=== PATIENT | female | born 1935 | race Hispanic/Latino ===

== ENCOUNTER 2016-10-07 12:44 | Inpatient (IN) | payer MEDICARE ==
[2016-10-07 12:44] VITALS: PULSE 140
[2016-10-07 13:02] VITALS: BMI 18.8
[2016-10-07] MEDS ORDERED: Sodium Chloride 0.9% 1,000 ML IV ONE (13:22)
[2016-10-07] MEDS ORDERED: Iohexol 240 (50 ml) PO STA (13:22)
[2016-10-07] MEDS ORDERED: Iohexol 240 (50 ml) ONE (13:37)
[2016-10-07] MEDS ORDERED: Sodium Chloride 0.9% 1,000 ML ONE (13:37)
[2016-10-07 14:02] LABS: BASO # 0.1 K/uL (0.0-0.2); BASO % 1.1 % (0.0-2.0); EOS # 0.1 K/uL (0.0-0.7); EOS % 1.1 % (0.0-4.0); LYMPH # 1.4 K/uL (1.0-4.3); LYMPH % 18.6 % (20.0-40.0); MEAN CELL VOLUME 93.1 fL (81.0-99.0); MEAN CORPUSCULAR HEMOGLOBIN 30.4 pg (27.0-31.0); MEAN CORPUSCULAR HGB CONC 32.6 g/dL (33.0-37.0); MEAN PLATELET VOLUME 10.3 fL (7.2-11.7); MONO # 0.7 K/uL (0.0-0.8); MONO % 9.2 % (0.0-10.0); NEUT # 5.4 K/uL (1.8-7.0); RBC 3.94 Mil/uL (3.80-5.20); RED CELL DISTRIBUTION WIDTH 14.2 % (11.5-14.5); WHITE BLOOD COUNT 7.7 K/uL (4.8-10.8)
--- NOTE | 2016-10-07 14:09 | RAD ---
PROCEDURE: CHEST RADIOGRAPH, 1 VIEW HISTORY: SOB COMPARISON: 05/01/2016 FINDINGS: LUNGS: The lungs are hyperinflated and there is peribronchial thickening with chronic changes in both lungs. There are fibrotic changes in both upper and lower lobes. No focal consolidation. PLEURA: No pneumothorax or pleural fluid seen. CARDIOVASCULAR: Normal. OSSEOUS STRUCTURES: No significant abnormalities. VISUALIZED UPPER ABDOMEN: Normal. OTHER FINDINGS: None. IMPRESSION: No active pulmonary disease. COPD.
[2016-10-07 14:11] LABS: ALBUMIN 3.8 g/dL (3.5-5.0)
[2016-10-07 14:14] LABS: ALB/GLOB RATIO 1.2 (1.0-2.1); CALCIUM 12.5 mg/dl (8.6-10.4)
[2016-10-07 14:15] LABS: MAGNESIUM 2.1 mg/dL (1.6-2.3)
--- NOTE | 2016-10-07 14:45 | C.PDOC ---
History Of Present Illness Patient is a 81 y/o female that presents to the ED for evaluation of generalized weakness, and not feeling well. Patient complains of numbness to bilateral legs below the knee, and difficulty ambulating for the past week. Patient also complains of abdominal pain, distention, nausea, and poor appetite. Patient was sent to the ED by Dr. Tobi Berger. Additionally patient states that she fell several weeks ago, and is complaining of back pain, and anterior chest wall pain. Otherwise, denies any shortness of breath, cough, fever, chills, diarrhea, incontinence, or any other associated symptoms at this time. HPI limited, due to poor history from patient. Time Seen by Provider: 10/07/16 13:15 Chief Complaint (Nursing): Weakness/Neurological Deficit History Per: Patient History/Exam Limitations: no limitations Onset/Duration Of Symptoms: Days Current Symptoms Are (Timing): Still Present Recent travel outside of the [place]: No Past Medical History Reviewed: Historical Data, Nursing Documentation, Vital Signs Vital Signs: Last Vital Signs Temp 98.1 F 10/07/16 12:55 Pulse 55 L 10/07/16 15:26 Resp 14 10/07/16 15:26 BP 169/70 H 10/07/16 15:26 Pulse Ox 97 10/07/16 15:26 - Medical History PMH: Anemia, Anxiety, Arthritis, Asthma, Back Problems, COPD, Gall Bladder Disease (cholelithiasis), HTN, Hypercholesterolemia, Hyperlipidemia, Hypothyroidism (Melvi's Disease), Kidney Stones (nonobstructing calculi on CT. Asymptomatic), Peripheral Edema Denies: Atrial Fibrillation, CHF, Chronic Kidney Disease (acute kidney injury 2ndry to dehydration and intractable diarrhea may cause) Comment Only: Alzheimer's Disease (suspected) Surgical History: Appendectomy, Coronary Stent - [facility] Procedures INSERTION OF INTRALUM DEV INTO INF VENA CAVA, PERC APPROACH (05/16/15) INSPECTION OF LARYNX, ENDO (05/05/15) INSPECTION OF LOWER INTESTINAL TRACT, ENDO (05/05/15) INSPECTION OF UPPER INTESTINAL TRACT, ENDO (05/05/15) TRANSFUSE NONAUT RED BLOOD CELLS IN PERIPH VEIN, PERC (05/16/15) Family History: States: Unknown Family Hx - Social History Hx Tobacco Use: No Hx Alcohol Use: No Hx Substance Use: No - Immunization History Hx Tetanus Toxoid Vaccination: No Hx Influenza Vaccination: No Hx Pneumococcal Vaccination: Yes Review Of Systems Except As Marked, All Systems Reviewed And Found Negative. Constitutional: Positive for: Weakness, Other (poor appetite). Negative for: Fever, Chills Cardiovascular: Positive for: Chest Pain (chest wall pain). Negative for: Palpitations, Light Headedness Respiratory: Negative for: Cough, Shortness of Breath Gastrointestinal: Positive for: Nausea, Abdominal Pain. Negative for: Diarrhea , Constipation Genitourinary: Negative for: Dysuria, Frequency, Hematuria Musculoskeletal: Positive for: Back Pain. Negative for: Leg Pain Neurological: Positive for: Numbness (BL legs). Negative for: Weakness, Headache, Dizziness Physical Exam - Physical Exam Appears: Non-toxic, No Acute Distress Skin: Normal Color, Warm, Dry Head: Atraumatic, Normacephalic Eye(s): bilateral: Normal Inspection, EOMI Oral Mucosa: Dry Neck: Normal ROM, Supple Chest: Symmetrical, No Tenderness Cardiovascular: Rhythm Regular, No Murmur Respiratory: Normal Breath Sounds, No Accessory Muscle Use, No Rales, No Rhonchi , No Wheezing Gastrointestinal/Abdominal: Soft, Tenderness (left side), Distention, Guarding, No Rebound Back: No CVA Tenderness, No Vertebral Tenderness, No Paraspinal Tenderness Extremity: Normal ROM, No Tenderness, Capillary Refill (<2 sec.), No Deformity Neurological/Psych: Oriented x3, Normal Speech, Normal Cognition, Normal Motor, Normal Sensation (no sensory loss), Other (neuro intact, no focal weakness) ED Course And Treatment - Laboratory Results Result Diagrams: 10/07/16 14:00 10/07/16 14:00 Lab Interpretation: Abnormal (BUN 25, Calcium 12.5, Bili 1.5) ECG: Interpreted By Me ECG Rhythm: Sinus Bradycardia (with left axis) O2 Sat by Pulse Oximetry: 91 (Patient with known history of COPD, heavy smoker) Pulse Ox Interpretation: Abnormal - Radiology CXR: Viewed By Me, Read By Radiologist CXR Interpretation: Yes: COPD, Other (diffuse fibrotic changes) - CT Scan/US CT abdomen and pelvis Other Rad Studies (CT/US): Read By Radiologist, Radiology Report Reviewed CT/US Interpretation: Accession No. : [id number]. Patient Name / ID : DANIEL ASHFORD / [id number]. Exam Date : 10/07/2016 16:00:18 ( Approved ). Study Comment : Sex / Age : F / 81Y. Creator : RAMON MCNALLY MD. Dictator : RAMON MCNALLY MD. Clinical Document Improvement Educator : [employer] Consultant : RAMON MCNALLY MD. Approver2 : Report Date : 10/07/2016 16:29:44. My Comment : . PROCEDURE: CT Abdomen and Pelvis with contrast. HISTORY: Abdominal pain. COMPARISON: 06/03/2015. TECHNIQUE: CT scan of the abdomen and pelvis was performed after administration of intravenous contrast. Oral contrast was administered. Coronal and sagittal reformatted images were obtained. 100 mL Visipaque 320 was injected intravenously. Radiation dose: Total exam DLP = 198.51 mGy-cm. This CT exam was performed using one or more of the following dose reduction techniques: Automated exposure control, adjustment of the mA and/or kV according to patient size, and/or use of iterative reconstruction technique. FINDINGS: LOWER THORAX: There are patchy areas of increased attenuation in both lower lobes, some of which demonstrate nodular configuration in the right lower lobe. LIVER: There is mild hepatomegaly and there is homogeneous enhancement with decreased attenuation. No gross lesion or ductal dilatation. GALLBLADDER AND BILE DUCTS: There are multiple gallstones. PANCREAS: The pancreas is normal in size and there is homogeneous enhancement. No gross lesion or ductal dilatation. SPLEEN: The spleen is normal in size and there is homogeneous enhancement without focal mass. ADRENALS: Both adrenal glands are normal in size without discrete nodule. KIDNEYS AND URETERS: Both kidneys are normal in size and there is homogeneous enhancement without focal mass or nephrolithiasis. No hydronephrosis. No solid mass. VASCULATURE: There are advanced atherosclerotic aortoiliac calcifications. There is mild aneurysmal dilatation of the infrarenal aorta. An infrarenal IVC filter remains in place. BOWEL: The small bowel loops are normal in caliber. There is large amount of stool in the ascending and transverse colon. No evidence of bowel dilatation or obstruction. There is apparent mild circumferential mural thickening in the left hemicolon. APPENDIX: Normal appendix. PERITONEUM: No free fluid. No free air. LYMPH NODES: No enlarged lymph nodes. BLADDER: Unremarkable. REPRODUCTIVE: Unremarkable. BONES: Diffuse bone demineralization and old inferior endplate compression fracture in the L1 vertebral body and superior endplate compression fracture in the L5 vertebral body. Multilevel degenerative changes. OTHER FINDINGS: None. IMPRESSION: 1. Suspect multifocal pneumonia in the right lower lobe. A dedicated CT scan of the thorax without intravenous contrast is recommended for complete evaluation of the lungs an to exclude metastasis. 2. Apparent mild mural thickening in the left hemicolon is nonspecific and could be related to underdistention, evaluation of the left hemicolon is limited in the absence of oral contrast however nonspecific acute infectious/inflammatory colitis cannot be excluded. Clinical follow-up is advised. No evidence of bowel obstruction. 3. Cholelithiasis. 4. Constipation. 5. Mild hepatomegaly and hepatic steatosis. Progress Note: Labs, abd & pelvis CT, EKG, CXR ordered and reviewed. Patient was given IV fluids, and Iohexol in the ER. Reevaluation Time: 15:18 Reassessment Condition: Unchanged - Physician Consult Information Time Consulting Physician Contacted: 15:18 Physician Contacted: Javier Berger Outcome Of Conversation: He knows the patient well. She has been getting progressively weaker and is unable to manage as an out patient. She has been falling and is now having a poor appetite with weight loss. she will be admitted for dehydration and new hypercalcemia. Disposition - Disposition Disposition: HOSPITALIZED Disposition Time: 15:22 Condition: FAIR - POA Present On Arrival: None - Clinical Impression Clinical Impression: Weakness generalized, Dehydration, Hypercalcemia - Scribe Statement The provider has reviewed the documentation as recorded by the Salina Magallanes Provider Attestation: All medical record entries made by the Salina were at my direction and personally dictated by me. I have reviewed the chart and agree that the record accurately reflects my personal performance of the history, physical exam, medical decision making, and the department course for this patient. I have also personally directed, reviewed, and agree with the discharge instructions and disposition.
[2016-10-07] MEDS ORDERED: Metoprolol Succinate 50 mg XL Tab PO STA (15:07)
[2016-10-07] MEDS ORDERED: Metoprolol Succinate 50 mg XL Tab PO ONE (15:23)
[2016-10-07] MEDS ORDERED: Iodixanol 320 MG/ML 100 ML BOTTLE IV ONE (15:32)
[2016-10-07 15:39] LABS: SQUAMOUS EPITHIAL 2 /hpf (0-5); URINE BILIRUBIN NEGATIVE (NEGATIVE); URINE BLOOD NEGATIVE (NEGATIVE); URINE CLARITY Clear (Clear); URINE COLOR Yellow (YELLOW); URINE GLUCOSE (UA) NORMAL (Normal); URINE LEUKOCYTE ESTERASE NEG Leu/uL (Negative); URINE NITRATE NEGATIVE (NEGATIVE); URINE PROTEIN 2+ mg/dL (NEGATIVE); URINE UROBILINOGEN NORMAL mg/dL (0.2-1.0)
--- NOTE | 2016-10-07 16:31 | CT ---
PROCEDURE: CT Abdomen and Pelvis with contrast HISTORY: Abdominal pain COMPARISON: 06/03/2015. TECHNIQUE: CT scan of the abdomen and pelvis was performed after administration of intravenous contrast. Oral contrast was administered. Coronal and sagittal reformatted images were obtained. 100 mL Visipaque 320 was injected intravenously. Radiation dose: Total exam DLP = 198.51 mGy-cm. This CT exam was performed using one or more of the following dose reduction techniques: Automated exposure control, adjustment of the mA and/or kV according to patient size, and/or use of iterative reconstruction technique. FINDINGS: LOWER THORAX: There are patchy areas of increased attenuation in both lower lobes, some of which demonstrate nodular configuration in the right lower lobe. LIVER: There is mild hepatomegaly and there is homogeneous enhancement with decreased attenuation. No gross lesion or ductal dilatation. GALLBLADDER AND BILE DUCTS: There are multiple gallstones. PANCREAS: The pancreas is normal in size and there is homogeneous enhancement. No gross lesion or ductal dilatation. SPLEEN: The spleen is normal in size and there is homogeneous enhancement without focal mass. ADRENALS: Both adrenal glands are normal in size without discrete nodule. KIDNEYS AND URETERS: Both kidneys are normal in size and there is homogeneous enhancement without focal mass or nephrolithiasis. No hydronephrosis. No solid mass. VASCULATURE: There are advanced atherosclerotic aortoiliac calcifications. There is mild aneurysmal dilatation of the infrarenal aorta. An infrarenal IVC filter remains in place. BOWEL: The small bowel loops are normal in caliber. There is large amount of stool in the ascending and transverse colon. No evidence of bowel dilatation or obstruction. There is apparent mild circumferential mural thickening in the left hemicolon. APPENDIX: Normal appendix. PERITONEUM: No free fluid. No free air. LYMPH NODES: No enlarged lymph nodes. BLADDER: Unremarkable. REPRODUCTIVE: Unremarkable. BONES: Diffuse bone demineralization and old inferior endplate compression fracture in the L1 vertebral body and superior endplate compression fracture in the L5 vertebral body. Multilevel degenerative changes. OTHER FINDINGS: None. IMPRESSION: 1. Suspect multifocal pneumonia in the right lower lobe. A dedicated CT scan of the thorax without intravenous contrast is recommended for complete evaluation of the lungs an to exclude metastasis. 2. Apparent mild mural thickening in the left hemicolon is nonspecific and could be related to underdistention, evaluation of the left hemicolon is limited in the absence of oral contrast however nonspecific acute infectious/inflammatory colitis cannot be excluded. Clinical follow-up is advised. No evidence of bowel obstruction. 3. Cholelithiasis. 4. Constipation. 5. Mild hepatomegaly and hepatic steatosis.
[2016-10-08] MEDS ORDERED: Levothyroxine 125 MCG TAB PO SCH (06:30)
[2016-10-08] MEDS: Saccharomyces Boulardi 250 mg Cap PO SCH (10:16)
[2016-10-08] MEDS: Enoxaparin 40 mg Syringe SC SCH (10:16)
--- NOTE | 2016-10-08 12:23 | CT ---
PROCEDURE: CT Chest without contrast HISTORY: hx 50years smoking ,multifocal pneumonia COMPARISON: 10/07/2016. TECHNIQUE: Contiguous axial images were obtained through the chest without intravenous contrast enhancement. Sagittal and coronal reconstructions were performed. Radiation dose (DLP): 213.06 mGy-cm. This CT exam was performed using one or more of the following dose reduction techniques: Automated exposure control, adjustment of the mA and/or kV according to patient size, and/or use of iterative reconstruction technique. FINDINGS: LUNGS: There are multiple nodular areas of increased attenuation with irregular margins and surrounding septal thickening in both lungs. Are confluent areas of increased attenuation in posterior segments of both upper lobes. Also noted is architectural distortion and mild traction bronchiectasis in the lungs and mild honeycombing in the posterior segments of the upper lobes. There are no endobronchial lesions. MEDIASTINUM: The aorta is not dilated. There are prominent subcentimeter mediastinal lymph nodes. The heart is normal in size. There is no pericardial effusion. PLEURA: There are bilateral small pleural effusions. No pneumothorax. BONES: No fracture. No destructive lesion. Multilevel degenerative disc disease. UPPER ABDOMEN: Both adrenal glands are thickened. There is new mild perihepatic and perisplenic ascites. OTHER FINDINGS: None. IMPRESSION: 1. Findings are most compatible with multifocal pneumonia with more confluent consolidation in the posterior segments of the upper lobes. However given multifocal distribution and nodular configuration of the airspace disease, metastatic disease is not entirely excluded in this age group. Follow-up of to management is advised to ensure complete resolution. 2. Mild perihepatic and perisplenic ascites, new since the prior examination.
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
--- NOTE | 2016-10-08 14:02 | CARD ---
APPROVED REPORT EKG Measurement Heart [id number] <Conclusion> Sinus bradycardia Left axis deviation Abnormal ECG
[2016-10-08] MEDS: Dextrose 5%/Lactated Ringer's 1,000 ML IV SCH (14:38)
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
[2016-10-08] MEDS: Clindamycin 600mg/50ml D5W 600 MG/50 ML VIAL IVPB SCH (16:25)
[2016-10-08 18:31] LABS: ALBUMIN 3.1 g/dL (3.5-5.0)
[2016-10-08 18:35] LABS: ALB/GLOB RATIO 1.3 (1.0-2.1); CALCIUM 12.8 mg/dl (8.6-10.4)
[2016-10-08 18:54] LABS: FREE T4 2.14 ng/dL (0.78-2.19)
[2016-10-08] MEDS: Albuterol 0.083% Inhal Sol (2.5 mg/3 mL) UD INH SCH (20:07)
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
[2016-10-09] MEDS: Clindamycin 600mg/50ml D5W 600 MG/50 ML VIAL IVPB SCH ×4 (00:02→23:41)
[2016-10-09] MEDS: Albuterol 0.083% Inhal Sol (2.5 mg/3 mL) UD INH SCH ×4 (01:28→21:00)
[2016-10-09] MEDS: Levothyroxine 150 MCG TAB PO SCH (06:28)
[2016-10-09] MEDS ORDERED: Levothyroxine 100 MCG TAB PO SCH ×2 (06:30)
[2016-10-09] MEDS: Saccharomyces Boulardi 250 mg Cap PO SCH (10:57)
[2016-10-09] MEDS: Enoxaparin 40 mg Syringe SC SCH (10:58)
[2016-10-09 11:48] LABS: BASO # 0.1 K/uL (0.0-0.2); BASO % 0.6 % (0.0-2.0); EOS # 0.1 K/uL (0.0-0.7); EOS % 0.9 % (0.0-4.0); HEMOGLOBIN 12.5 g/dL (11.0-16.0); LYMPH # 0.8 K/uL (1.0-4.3); LYMPH % 8.7 % (20.0-40.0); MEAN CORPUSCULAR HEMOGLOBIN 30.6 pg (27.0-31.0); MEAN CORPUSCULAR HGB CONC 32.9 g/dL (33.0-37.0); MEAN PLATELET VOLUME 10.6 fL (7.2-11.7); MONO # 0.8 K/uL (0.0-0.8); MONO % 7.9 % (0.0-10.0); NEUT # 7.8 K/uL (1.8-7.0); NEUT % 81.9 % (50.0-75.0); PLATELET COUNT 200 K/uL (130-400); RBC 4.08 Mil/uL (3.80-5.20); WHITE BLOOD COUNT 9.5 K/uL (4.8-10.8)
[2016-10-09 12:39] LABS: ANISOCYTOSIS SLIGHT; BANDS 3 % (0-2); EOSINOPHIL 1 % (0-4); LYMPHOCYTE 8 % (20-40); MONOCYTE 12 % (0-10); NEUTROPHIL 76 % (50-75); PLATELET ESTIMATE NORMAL (NORMAL); TOTAL CELLS COUNTED 100
[2016-10-09 12:40] LABS: HYPOCHROMIC SLIGHT; OVALOCYTES SLIGHT; POIKILOCYTOSIS SLIGHT; POLYCHROMIC SLIGHT
[2016-10-09] MEDS: Dextrose 5%/Lactated Ringer's 1,000 ML IV SCH (14:12)
--- NOTE | 2016-10-09 14:42 | RAD ---
PROCEDURE: Bilateral knees dated 10/09/2016 Three views of the right and left knees performed. HISTORY: Difficulty moving knee COMPARISON: No prior FINDINGS: Current study reveals no evidence of acute displaced fracture nor dislocation. The osseous structures appear intact. Mild diffuse demineralization. Mild degenerative changes both knees. There is joint space narrowing most notably affecting the medial compartments with evidence of chondrocalcinosis; rule out CPPD. Small anterior superior patella enthesophyte formation noted bilaterally. Suspect trace suprapatellar joint effusions bilateral Vascular calcifications are present. Impression: No evidence of acute displaced fracture nor dislocation. 

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
--- NOTE | 2016-10-09 21:36 | CP.PCM.PN ---
Subjective - Date & Time of Evaluation Date of Evaluation: 10/09/16 Time of Evaluation: 17:45 - Subjective Subjective: Pt continues to be lethargic and per nursing was noted to have slept most of the day except when she went for tests. At mealtimes, pt ate a little breakfast , and a little bit more with lunch, though still not as much as her condition warrants. Pt on IVF, IV abx, and extensive supportive measures. Pt's corrected calcium is 14.22 mg/dL Objective - Vital Signs/Intake and Output Vital Signs (last 24 hours): Temp Pulse Resp BP Pulse Ox 97.8 F 68 20 183/83 H 95 10/09/16 07:37 10/09/16 07:37 10/09/16 07:37 10/09/16 07:37 10/09/16 07:37 Intake and Output: 10/09/16 10/10/16 18:59 06:59 Intake Total 720 Balance 720 - Medications Medications: Current Medications Acetaminophen (Tylenol 325mg Tab) 650 mg PO Q6 PRN PRN Reason: Pain, moderate (4-7) Last Admin: 10/08/16 06:30 Dose: 650 mg Albuterol Sulfate (Albuterol 0.083% Inhal Rosie (2.5 Mg/3 Ml) Ud) 2.5 mg INH RQ6 [facility] Last Admin: 10/09/16 21:00 Dose: 2.5 mg Alprazolam (Xanax) 0.5 mg PO HS [facility] Last Admin: 10/08/16 22:15 Dose: 0.5 mg Amiodarone HCl (Cordarone) 200 mg PO DAILY [facility] Last Admin: 10/09/16 10:56 Dose: 200 mg Bisacodyl (Dulcolax) 10 mg [place] DAILY [facility] Last Admin: 10/09/16 10:57 Dose: 10 mg Clonidine HCl (Catapres-Tts3 0.3 Mg/24 Hr) 1 patch TD QWK [facility] Enoxaparin Sodium (Lovenox) 40 mg SC DAILY [facility] Last Admin: 10/09/16 10:58 Dose: 40 mg Famotidine (Pepcid) 40 mg IVP Q12 [facility] Last Admin: 10/09/16 10:55 Dose: 40 mg Dextrose/Lactated Ringer's (Dextrose 5%/Lactated Ringer's) 1,000 mls @ 40 mls/ hr IV .Q24H [facility] Last Admin: 10/09/16 14:12 Dose: 40 mls/hr Clindamycin Phosphate (Cleocin) 600 mg in 50 mls @ 100 mls/hr IVPB Q8H [facility] Last Admin: 10/09/16 16:55 Dose: 100 mls/hr Lactulose (Enulose) 20 gm PO HS [facility] Last Admin: 10/08/16 22:15 Dose: 20 gm Levothyroxine Sodium (Synthroid) 100 mcg PO DAILY@0630 [facility] Levothyroxine Sodium (Synthroid) 150 mcg PO DAILY@0630 [facility] Last Admin: 10/09/16 06:28 Dose: 150 mcg Losartan Potassium (Cozaar) 100 mg PO DAILY [facility] Last Admin: 10/09/16 10:57 Dose: 100 mg Metoclopramide HCl (Reglan) 5 mg IVP ACHS [facility] Last Admin: 10/09/16 17:00 Dose: 5 mg Mirtazapine (Remeron) 15 mg PO HS [facility] Last Admin: 10/08/16 22:15 Dose: 15 mg Ondansetron HCl (Zofran Inj) 4 mg IVP Q8 [facility] Last Admin: 10/09/16 14:09 Dose: 4 mg Raloxifene HCl (Evista) 60 mg PO DAILY [facility] Last Admin: 10/09/16 10:57 Dose: 60 mg Saccharomyces Boulardii (Florastor) 250 mg PO DAILY [facility] Last Admin: 10/09/16 10:57 Dose: 250 mg Sucralfate (Carafate Tab) 1 gm PO AC [facility] Last Admin: 10/09/16 16:52 Dose: Not Given - Labs Labs: 10/09/16 10:45 10/08/16 18:19 - Constitutional Appears: No Acute Distress - Head Exam Head Exam: NORMAL INSPECTION, NORMOCEPHALIC - Eye Exam Eye Exam: Normal appearance - ENT Exam ENT Exam: Mucous Membranes Dry - Neck Exam Additional comments: weak, no JVD - Respiratory Exam Respiratory Exam: Decreased Breath Sounds, NORMAL BREATHING PATTERN Additional comments: shallow - Cardiovascular Exam Cardiovascular Exam: REGULAR RHYTHM - GI/Abdominal Exam GI & Abdominal Exam: Hypoactive Bowel Sounds - Rectal Exam Rectal Exam: Deferred - Extremities Exam Extremities Exam: Joint Swelling (on R knee), Normal Inspection, Pedal Edema, Tenderness - Neurological Exam Neurological Exam: absent: Abnormal Gait, Alert, Altered, Awake, CN II-XII Intact, Motor Sensory Deficit (unable to examine, pt unable to ambulate much), Normal Gait, Oriented x3, Reflexes Normal Neuro motor strength exam: Left Upper Extremity: 3, Right Upper Extremity: 3, Left Lower Extremity: 3, Right Lower Extremity: 2/1 - Psychiatric Exam Psychiatric exam: Anxious, Normal Affect, Normal Mood - Skin Skin Exam: Dry, Intact, Normal Color, Warm Assessment and Plan (1) Pneumonia Assessment & Plan: on clindamycin. pt complained of nausea and vomiting at times, but no projectile vomiting. Status: Acute (2) Dehydration Assessment & Plan: improvking Status: Acute (3) Hypercalcemia Assessment & Plan: may contribute to # 4 below, no obvious pathology. PTH in process (sendout Status: Acute (4) Weakness generalized Assessment & Plan: will need PT Status: Chronic (5) Hypothyroidism Assessment & Plan: levothyroxine increased Status: Chronic (6) Smoking hx Assessment & Plan: 64 year history, but quit last year after hosopitalization Status: Chronic (7) Failure to thrive syndrome, adult Assessment & Plan: no weight gain, and in fact, weight loss Status: Acute
[2016-10-09] MEDS ORDERED: Sodium Chloride 0.9% 1,000 ML IV SCH (23:30)
--- NOTE | 2016-10-09 23:32 | CP.PCM.PN ---
Subjective - Date & Time of Evaluation Date of Evaluation: 10/09/16 Time of Evaluation: 23:31 - Subjective Subjective: Patient has no respiratory distress currently, no cough noted, patient is complaining of some headache. No nausea vomiting, poor intake noted. Patient is concerned about the her thyroid medication currently. Currently on fingers lactate, which has a some calcium. Vital signs reviewed No neck vein distention noted Chest good air entry bilaterally, no wheezing or rales noted CVS regular heart sound, no murmur noted Abdomen soft, nontender. Extremities no pedal edema PANEL BEATER alert awake Labs reviewed Elevated calcium level noted. Assessment and recommendation: 81-year-old female with history of atrial fibrillation, on amiodarone, hypertension, possible bronchial asthma, now admitted with the chronic lung changes. Pneumonia possible. drug-induced interstitial lung changes possible. Calcium is elevated, unclear, will change IV fluid. May need a CAT scan of the head and will follow the patient. Objective - Vital Signs/Intake and Output Vital Signs (last 24 hours): Temp Pulse Resp BP Pulse Ox 97.8 F 68 18 168/72 H 95 10/09/16 15:21 10/09/16 15:21 10/09/16 15:21 10/09/16 15:21 10/09/16 15:21 Intake and Output: 10/09/16 10/10/16 18:59 06:59 Intake Total 720 540 Balance 720 540 - Medications Medications: Current Medications Acetaminophen (Tylenol 325mg Tab) 650 mg PO Q6 PRN PRN Reason: Pain, moderate (4-7) Last Admin: 10/08/16 06:30 Dose: 650 mg Albuterol Sulfate (Albuterol 0.083% Inhal Rosie (2.5 Mg/3 Ml) Ud) 2.5 mg INH RQ6 [facility] Last Admin: 10/09/16 21:00 Dose: 2.5 mg Alprazolam (Xanax) 0.5 mg PO HS PRN PRN Reason: Anxiety Amiodarone HCl (Cordarone) 200 mg PO DAILY [facility] Last Admin: 10/09/16 10:56 Dose: 200 mg Bisacodyl (Dulcolax) 10 mg [place] DAILY [facility] Last Admin: 10/09/16 10:57 Dose: 10 mg Clonidine HCl (Catapres-Tts3 0.3 Mg/24 Hr) 1 patch TD QWK [facility] Enoxaparin Sodium (Lovenox) 40 mg SC DAILY [facility] Last Admin: 10/09/16 10:58 Dose: 40 mg Famotidine (Pepcid) 40 mg IVP Q12 [facility] Last Admin: 10/09/16 22:31 Dose: 40 mg Dextrose/Lactated Ringer's (Dextrose 5%/Lactated Ringer's) 1,000 mls @ 40 mls/ hr IV .Q24H [facility] Last Admin: 10/09/16 14:12 Dose: 40 mls/hr Clindamycin Phosphate (Cleocin) 600 mg in 50 mls @ 100 mls/hr IVPB Q8H [facility] Last Admin: 10/09/16 16:55 Dose: 100 mls/hr Lactulose (Enulose) 20 gm PO HS [facility] Last Admin: 10/09/16 22:17 Dose: Not Given Levothyroxine Sodium (Synthroid) 100 mcg PO DAILY@0630 [facility] Levothyroxine Sodium (Synthroid) 150 mcg PO DAILY@0630 [facility] Last Admin: 10/09/16 06:28 Dose: 150 mcg Losartan Potassium (Cozaar) 100 mg PO DAILY [facility] Last Admin: 10/09/16 10:57 Dose: 100 mg Metoclopramide HCl (Reglan) 5 mg IVP ACHS [facility] Last Admin: 10/09/16 22:32 Dose: 5 mg Mirtazapine (Remeron) 15 mg PO HS [facility] Last Admin: 10/09/16 22:31 Dose: 15 mg Ondansetron HCl (Zofran Inj) 4 mg IVP Q8 [facility] Last Admin: 10/09/16 22:32 Dose: 4 mg Raloxifene HCl (Evista) 60 mg PO DAILY [facility] Last Admin: 10/09/16 10:57 Dose: 60 mg Saccharomyces Boulardii (Florastor) 250 mg PO DAILY [facility] Last Admin: 10/09/16 10:57 Dose: 250 mg Sucralfate (Carafate Tab) 1 gm PO AC [facility] Last Admin: 10/09/16 16:52 Dose: Not Given - Labs Labs: 10/09/16 10:45 10/08/16 18:19
[2016-10-10] MEDS: Albuterol 0.083% Inhal Sol (2.5 mg/3 mL) UD INH SCH ×3 (01:10→15:43)
[2016-10-10] MEDS: Levothyroxine 150 MCG TAB PO SCH (06:14)
--- NOTE | 2016-10-10 07:27 | RAD ---
HISTORY: monitor pneumonia COMPARISON: 10/07/2016 FINDINGS: LUNGS: Biapical pleural thickening with upper lobe granulomatous changes. Patchy areas of nodular consolidation seen within the left suprahilar region, lateral aspect of the left midlung zone, and bilateral lung bases. Right hilar prominence. Diffuse increased interstitial lung markings throughout both lungs. Scattered nodularity throughout both lungs. PLEURA: As above. CARDIOVASCULAR: Calcification at the aortic knob. Mild cardiomegaly. OSSEOUS STRUCTURES: Degenerative changes in the spine and shoulders. VISUALIZED UPPER ABDOMEN: Normal. OTHER FINDINGS: None. IMPRESSION: Biapical pleural thickening with upper lobe granulomatous changes. Patchy areas of nodular consolidation seen within the left suprahilar region, lateral aspect of the left midlung zone, and bilateral lung bases. Right hilar prominence. Diffuse increased interstitial lung markings throughout both lungs. Scattered nodularity throughout both lungs.
--- NOTE | 2016-10-10 08:13 | CP.PCM.PN ---
Subjective - Date & Time of Evaluation Date of Evaluation: 10/10/16 Time of Evaluation: 08:05 - Subjective Subjective: no new complaints Objective - Vital Signs/Intake and Output Vital Signs (last 24 hours): Temp Pulse Resp BP Pulse Ox 99.2 F 76 20 176/75 H 97 10/09/16 23:57 10/09/16 23:57 10/09/16 23:57 10/09/16 23:57 10/09/16 23:57 Intake and Output: 10/10/16 10/10/16 06:59 18:59 Intake Total 540 520 Output Total 300 Balance 540 220 - Medications Medications: Current Medications Acetaminophen (Tylenol 325mg Tab) 650 mg PO Q6 PRN PRN Reason: Pain, moderate (4-7) Last Admin: 10/09/16 23:41 Dose: 650 mg Albuterol Sulfate (Albuterol 0.083% Inhal Rosie (2.5 Mg/3 Ml) Ud) 2.5 mg INH RQ6 [facility] Last Admin: 10/10/16 01:10 Dose: Not Given Alprazolam (Xanax) 0.5 mg PO HS PRN PRN Reason: Anxiety Last Admin: 10/10/16 00:24 Dose: 0.5 mg Amiodarone HCl (Cordarone) 200 mg PO DAILY [facility] Last Admin: 10/09/16 10:56 Dose: 200 mg Bisacodyl (Dulcolax) 10 mg [place] DAILY [facility] Last Admin: 10/09/16 10:57 Dose: 10 mg Clonidine HCl (Catapres-Tts3 0.3 Mg/24 Hr) 1 patch TD QWK [facility] Enoxaparin Sodium (Lovenox) 40 mg SC DAILY [facility] Last Admin: 10/09/16 10:58 Dose: 40 mg Famotidine (Pepcid) 40 mg IVP Q12 [facility] Last Admin: 10/09/16 22:31 Dose: 40 mg Clindamycin Phosphate (Cleocin) 600 mg in 50 mls @ 100 mls/hr IVPB Q8H [facility] Last Admin: 10/09/16 23:41 Dose: 100 mls/hr Sodium Chloride (Sodium Chloride 0.9%) 1,000 mls @ 50 mls/hr IV .Q20H [facility] Last Admin: 10/09/16 23:40 Dose: 50 mls/hr Lactulose (Enulose) 20 gm PO HS [facility] Last Admin: 10/09/16 22:17 Dose: Not Given Levothyroxine Sodium (Synthroid) 100 mcg PO DAILY@0630 [facility] Levothyroxine Sodium (Synthroid) 150 mcg PO DAILY@0630 [facility] Last Admin: 10/10/16 06:14 Dose: 150 mcg Losartan Potassium (Cozaar) 100 mg PO DAILY [facility] Last Admin: 10/09/16 10:57 Dose: 100 mg Metoclopramide HCl (Reglan) 5 mg IVP ACHS [facility] Last Admin: 10/09/16 22:32 Dose: 5 mg Mirtazapine (Remeron) 15 mg PO HS [facility] Last Admin: 10/09/16 22:31 Dose: 15 mg Ondansetron HCl (Zofran Inj) 4 mg IVP Q8 [facility] Last Admin: 10/10/16 05:57 Dose: 4 mg Raloxifene HCl (Evista) 60 mg PO DAILY [facility] Last Admin: 10/09/16 10:57 Dose: 60 mg Saccharomyces Boulardii (Florastor) 250 mg PO DAILY [facility] Last Admin: 10/09/16 10:57 Dose: 250 mg Sucralfate (Carafate Tab) 1 gm PO AC [facility] Last Admin: 10/09/16 16:52 Dose: Not Given - Labs Labs: 10/09/16 10:45 10/08/16 18:19 - Constitutional Appears: Non-toxic - Head Exam Head Exam: NORMAL INSPECTION - Eye Exam Eye Exam: Normal appearance - ENT Exam ENT Exam: Mucous Membranes Moist - Neck Exam Neck Exam: Full ROM - Respiratory Exam Respiratory Exam: NORMAL BREATHING PATTERN - Cardiovascular Exam Cardiovascular Exam: REGULAR RHYTHM - GI/Abdominal Exam GI & Abdominal Exam: Normal Bowel Sounds - Rectal Exam Rectal Exam: Deferred - Extremities Exam Extremities Exam: absent: Pedal Edema - Back Exam Back Exam: NORMAL INSPECTION - Neurological Exam Neurological Exam: Alert - Psychiatric Exam Psychiatric exam: Normal Affect - Skin Skin Exam: Normal Color Assessment and Plan (1) Paroxysmal atrial fibrillation Assessment & Plan: sinus rhythm. Status: Acute (2) COPD (chronic obstructive pulmonary disease) Assessment & Plan: being followed by pulmonary. consider PFTs to assess whether amiodarone is affecting lung function. Status: Acute
[2016-10-10 08:48] LABS: URIC ACID 4.8 mg/dL (2.2-7.5)
[2016-10-10] MEDS: Clindamycin 600mg/50ml D5W 600 MG/50 ML VIAL IVPB SCH ×3 (08:58→23:39)
[2016-10-10] MEDS: Enoxaparin 40 mg Syringe SC SCH (09:06)
[2016-10-10] MEDS: Saccharomyces Boulardi 250 mg Cap PO SCH (09:14)
--- NOTE | 2016-10-10 09:50 | CT ---
PROCEDURE: CT scan brain dated 10/10/2016 HISTORY: headache COMPARISON: Comparison made prior MRI and CT scan brain dated 05/01/2016 and 08/16/2015 respectively. 08/16/2015 TECHNIQUE: Axial computed tomography images were obtained through the head/brain without intravenous contrast. Radiation dose: Total exam DLP = 1566.42 mGy-cm. This CT exam was performed using one or more of the following dose reduction techniques: Automated exposure control, adjustment of the mA and/or kV according to patient size, and/or use of iterative reconstruction technique. FINDINGS: HEMORRHAGE: No acute parenchymal, subarachnoid or extra-axial hemorrhage. . BRAIN: Re- demonstrated are moderate of diffuse/confluent chronic white matter ischemic changes are seen extending peripherally into deep and subcortical white matter both cerebral hemispheres. Multiple more discrete chronic appearing lacunar type infarcts scattered about the deep and subcortical white matter as well both basal nuclei. Vascular calcifications of both carotid siphons. Moderate generalized volume loss. VENTRICLES: No evidence of obstructive hydrocephalus. CALVARIUM: There are no acute calvarial fracture seen. PARANASAL SINUSES: Un visualized paranasal sinuses are well-developed and currently well-aerated. There are no fluid levels seen to suggest sinusitis. MASTOID AIR CELLS: Unremarkable as visualized. No inflammatory changes. OTHER FINDINGS: None. IMPRESSION: No acute intracranial hemorrhage. Moderate white matter ischemic changes with scattered bilateral basal nuclei lacunar type infarcts.
[2016-10-10 12:37] LABS: CALCIUM 13.4 mg/dl (8.6-10.4)
[2016-10-10] MEDS: Sodium Chloride 0.9% 1,000 ML IV SCH (16:30)
--- NOTE | 2016-10-10 16:34 | CP.PCM.PN ---
Subjective - Date & Time of Evaluation Date of Evaluation: 10/10/16 Time of Evaluation: 08:00 - Subjective Subjective: afeb on clinda cultures neg thus far pulm and cardio on board r/o pulm fibrosis hypercalcemia Objective - Vital Signs/Intake and Output Vital Signs (last 24 hours): Temp Pulse Resp BP Pulse Ox 98.2 F 63 20 167/86 H 95 10/10/16 08:00 10/10/16 08:00 10/10/16 08:00 10/10/16 08:00 10/10/16 08:00 Intake and Output: 10/10/16 10/10/16 06:59 18:59 Intake Total 540 1040 Output Total 300 Balance 540 740 - Medications Medications: Current Medications Acetaminophen (Tylenol 325mg Tab) 650 mg PO Q6 PRN PRN Reason: Pain, moderate (4-7) Last Admin: 10/09/16 23:41 Dose: 650 mg Albuterol Sulfate (Albuterol 0.083% Inhal Rosie (2.5 Mg/3 Ml) Ud) 2.5 mg INH RQ6 [facility] Last Admin: 10/10/16 15:43 Dose: Not Given Alprazolam (Xanax) 0.5 mg PO HS PRN PRN Reason: Anxiety Last Admin: 10/10/16 00:24 Dose: 0.5 mg Amiodarone HCl (Cordarone) 200 mg PO DAILY [facility] Last Admin: 10/10/16 09:15 Dose: 200 mg Bisacodyl (Dulcolax) 10 mg [place] DAILY [facility] Last Admin: 10/10/16 09:12 Dose: 10 mg Clonidine HCl (Catapres-Tts3 0.3 Mg/24 Hr) 1 patch TD QWK [facility] Last Admin: 10/10/16 09:54 Dose: 1 patch Enoxaparin Sodium (Lovenox) 40 mg SC DAILY [facility] Last Admin: 10/10/16 09:06 Dose: 40 mg Famotidine (Pepcid) 40 mg IVP Q12 [facility] Last Admin: 10/10/16 09:05 Dose: 40 mg Clindamycin Phosphate (Cleocin) 600 mg in 50 mls @ 100 mls/hr IVPB Q8H [facility] Last Admin: 10/10/16 08:58 Dose: 100 mls/hr Sodium Chloride (Sodium Chloride 0.9%) 1,000 mls @ 100 mls/hr IV .Q10H [facility] Lactulose (Enulose) 20 gm PO HS [facility] Last Admin: 10/09/16 22:17 Dose: Not Given Levothyroxine Sodium (Synthroid) 100 mcg PO DAILY@0630 [facility] Levothyroxine Sodium (Synthroid) 150 mcg PO DAILY@0630 [facility] Last Admin: 10/10/16 06:14 Dose: 150 mcg Losartan Potassium (Cozaar) 100 mg PO DAILY [facility] Last Admin: 10/10/16 09:15 Dose: 100 mg Metoclopramide HCl (Reglan) 5 mg IVP ACHS [facility] Last Admin: 10/10/16 12:45 Dose: 5 mg Mirtazapine (Remeron) 15 mg PO HS [facility] Last Admin: 10/09/16 22:31 Dose: 15 mg Ondansetron HCl (Zofran Inj) 4 mg IVP Q8 [facility] Last Admin: 10/10/16 05:57 Dose: 4 mg Raloxifene HCl (Evista) 60 mg PO DAILY [facility] Last Admin: 10/10/16 09:54 Dose: 60 mg Saccharomyces Boulardii (Florastor) 250 mg PO DAILY [facility] Last Admin: 10/10/16 09:14 Dose: 250 mg Sucralfate (Carafate Tab) 1 gm PO AC [facility] Last Admin: 10/10/16 11:48 Dose: Not Given - Labs Labs: 10/09/16 10:45 10/10/16 08:02 - Constitutional Appears: Non-toxic, Cachectic, Chronically Ill - Head Exam Head Exam: NORMOCEPHALIC - Eye Exam Eye Exam: PERRL. absent: Scleral icterus - ENT Exam ENT Exam: Mucous Membranes Dry, Normal External Ear Exam - Neck Exam Neck Exam: absent: Lymphadenopathy - Respiratory Exam Respiratory Exam: Decreased Breath Sounds, Clear to Ausculation Bilateral - Cardiovascular Exam Cardiovascular Exam: REGULAR RHYTHM - GI/Abdominal Exam GI & Abdominal Exam: Distended - Rectal Exam Rectal Exam: Deferred - Exam Exam: NORMAL INSPECTION Assessment and Plan (1) Dehydration Status: Acute (2) Hypercalcemia Status: Acute (3) Weakness generalized Status: Chronic
--- NOTE | 2016-10-10 18:28 | CP.PCM.PN ---
Subjective - Date & Time of Evaluation Date of Evaluation: 10/10/16 Time of Evaluation: 18:21 - Subjective Subjective: Pt seen and examined at bedside during dinner time. Pt attempting to eat, and says this is the first time she has had an appetite and is trying to eat. Denies any SOB or chest pain. Encouraged to eat her meal despite it not being to her taste. Left pt comfortable and NAD Objective - Vital Signs/Intake and Output Vital Signs (last 24 hours): Temp Pulse Resp BP Pulse Ox 98.2 F 63 20 167/86 H 95 10/10/16 08:00 10/10/16 08:00 10/10/16 08:00 10/10/16 08:00 10/10/16 08:00 Intake and Output: 10/10/16 10/10/16 06:59 18:59 Intake Total 540 1040 Output Total 300 Balance 540 740 - Medications Medications: Current Medications Acetaminophen (Tylenol 325mg Tab) 650 mg PO Q6 PRN PRN Reason: Pain, moderate (4-7) Last Admin: 10/09/16 23:41 Dose: 650 mg Albuterol Sulfate (Albuterol 0.083% Inhal Rosie (2.5 Mg/3 Ml) Ud) 2.5 mg INH RQ6 [facility] Last Admin: 10/10/16 15:43 Dose: Not Given Alprazolam (Xanax) 0.5 mg PO HS PRN PRN Reason: Anxiety Last Admin: 10/10/16 00:24 Dose: 0.5 mg Amiodarone HCl (Cordarone) 200 mg PO DAILY [facility] Last Admin: 10/10/16 09:15 Dose: 200 mg Bisacodyl (Dulcolax) 10 mg [place] DAILY [facility] Last Admin: 10/10/16 09:12 Dose: 10 mg Clonidine HCl (Catapres-Tts3 0.3 Mg/24 Hr) 1 patch TD QWK [facility] Last Admin: 10/10/16 09:54 Dose: 1 patch Enoxaparin Sodium (Lovenox) 40 mg SC DAILY [facility] Last Admin: 10/10/16 09:06 Dose: 40 mg Famotidine (Pepcid) 40 mg IVP Q12 [facility] Last Admin: 10/10/16 09:05 Dose: 40 mg Clindamycin Phosphate (Cleocin) 600 mg in 50 mls @ 100 mls/hr IVPB Q8H [facility] Last Admin: 10/10/16 08:58 Dose: 100 mls/hr Sodium Chloride (Sodium Chloride 0.9%) 1,000 mls @ 100 mls/hr IV .Q10H [facility] Lactulose (Enulose) 20 gm PO HS [facility] Last Admin: 10/09/16 22:17 Dose: Not Given Levothyroxine Sodium (Synthroid) 100 mcg PO DAILY@0630 [facility] Levothyroxine Sodium (Synthroid) 150 mcg PO DAILY@0630 [facility] Last Admin: 10/10/16 06:14 Dose: 150 mcg Losartan Potassium (Cozaar) 100 mg PO DAILY [facility] Last Admin: 10/10/16 09:15 Dose: 100 mg Metoclopramide HCl (Reglan) 5 mg IVP ACHS [facility] Last Admin: 10/10/16 12:45 Dose: 5 mg Mirtazapine (Remeron) 15 mg PO HS [facility] Last Admin: 10/09/16 22:31 Dose: 15 mg Ondansetron HCl (Zofran Inj) 4 mg IVP Q8 [facility] Last Admin: 10/10/16 05:57 Dose: 4 mg Raloxifene HCl (Evista) 60 mg PO DAILY [facility] Last Admin: 10/10/16 09:54 Dose: 60 mg Saccharomyces Boulardii (Florastor) 250 mg PO DAILY [facility] Last Admin: 10/10/16 09:14 Dose: 250 mg Sucralfate (Carafate Tab) 1 gm PO AC [facility] Last Admin: 10/10/16 11:48 Dose: Not Given - Labs Labs: 10/09/16 10:45 10/10/16 08:02 - Constitutional Appears: No Acute Distress - Head Exam Head Exam: NORMAL INSPECTION, NORMOCEPHALIC - Eye Exam Eye Exam: absent: Conjunctival injection (unable to examine, pt sedated), EOMI, Normal appearance, Nystagmus, Periorbital swelling, Periorbital tenderness, PERRL, Scleral icterus - ENT Exam ENT Exam: Normal Exam - Neck Exam Neck Exam: Normal Inspection - Respiratory Exam Respiratory Exam: NORMAL BREATHING PATTERN - Cardiovascular Exam Cardiovascular Exam: REGULAR RHYTHM - GI/Abdominal Exam GI & Abdominal Exam: Hypoactive Bowel Sounds - Rectal Exam Rectal Exam: Deferred - Extremities Exam Extremities Exam: Normal Inspection - Back Exam Back Exam: NORMAL INSPECTION - Neurological Exam Neurological Exam: absent: Abnormal Gait, Alert, Altered, Awake, CN II-XII Intact, Motor Sensory Deficit, Normal Gait, Oriented x3, Reflexes Normal Additional comments: unable to examine, pt post-op Assessment and Plan (1) Myocardial infarction acute Assessment & Plan: s/p cardiac cath today, medical mgt only per Cardio Status: Acute (2) Pneumonia Assessment & Plan: on IV abx, no worsening Status: Acute (3) Dehydration Assessment & Plan: improving Status: Resolved (4) Hypercalcemia Assessment & Plan: consult with Endo today with increase in flow rate and type of IVF Status: Acute (5) Weakness generalized Assessment & Plan: will need extensive PT Status: Chronic (6) Hypothyroidism Assessment & Plan: increased dosage of levothyroxine Status: Chronic (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
--- NOTE | 2016-10-10 20:36 | CP.PCM.PN ---
Subjective - Date & Time of Evaluation Date of Evaluation: 10/10/16 Time of Evaluation: 20:35 - Subjective Subjective: Patient is more awake and responding. She is having some trouble in eating. Some cough noted when eating. Underlying dysphagia cannot be ruled out. No vomiting no nausea. No chest pain. Vital signs reviewed No neck vein distention noted Chest good air entry bilaterally, no wheezing or rales noted CVS regular heart sound, no murmur noted Abdomen soft, nontender. Extremities no pedal edema RN COMMUNITY alert awake oriented 3, no functional neurological deficit Assessment and recommendation: 81-year-old female with history of atrial fibrillation on amiodarone hypertension and bronchial asthma. Chronic lung changes. Patient is having hypercalcemia, underlying cancer cannot be ruled out. Dysphagia noted. Barium swallow study may be indicated. Continue the IV fluid and management as per endocrine Objective - Vital Signs/Intake and Output Vital Signs (last 24 hours): Temp Pulse Resp BP Pulse Ox 98.3 F 82 76 H 174/82 H 95 10/10/16 16:00 10/10/16 16:00 10/10/16 16:00 10/10/16 16:00 10/10/16 16:00 Intake and Output: 10/10/16 10/11/16 18:59 06:59 Intake Total 1040 Output Total 300 Balance 740 - Medications Medications: Current Medications Acetaminophen (Tylenol 325mg Tab) 650 mg PO Q6 PRN PRN Reason: Pain, moderate (4-7) Last Admin: 10/09/16 23:41 Dose: 650 mg Albuterol Sulfate (Albuterol 0.083% Inhal Rosie (2.5 Mg/3 Ml) Ud) 2.5 mg INH RQ6 [facility] Last Admin: 10/10/16 15:43 Dose: Not Given Alprazolam (Xanax) 0.5 mg PO HS PRN PRN Reason: Anxiety Last Admin: 10/10/16 00:24 Dose: 0.5 mg Amiodarone HCl (Cordarone) 200 mg PO DAILY [facility] Last Admin: 10/10/16 09:15 Dose: 200 mg Bisacodyl (Dulcolax) 10 mg [place] DAILY [facility] Last Admin: 10/10/16 09:12 Dose: 10 mg Clonidine HCl (Catapres-Tts3 0.3 Mg/24 Hr) 1 patch TD QWK [facility] Last Admin: 10/10/16 09:54 Dose: 1 patch Enoxaparin Sodium (Lovenox) 40 mg SC DAILY [facility] Last Admin: 10/10/16 09:06 Dose: 40 mg Famotidine (Pepcid) 40 mg IVP Q12 [facility] Last Admin: 10/10/16 09:05 Dose: 40 mg Clindamycin Phosphate (Cleocin) 600 mg in 50 mls @ 100 mls/hr IVPB Q8H [facility] Last Admin: 10/10/16 16:00 Dose: 100 mls/hr Sodium Chloride (Sodium Chloride 0.9%) 1,000 mls @ 100 mls/hr IV .Q10H [facility] Lactulose (Enulose) 20 gm PO HS [facility] Last Admin: 10/09/16 22:17 Dose: Not Given Levothyroxine Sodium (Synthroid) 100 mcg PO DAILY@0630 [facility] Levothyroxine Sodium (Synthroid) 150 mcg PO DAILY@0630 [facility] Last Admin: 10/10/16 06:14 Dose: 150 mcg Losartan Potassium (Cozaar) 100 mg PO DAILY [facility] Last Admin: 10/10/16 09:15 Dose: 100 mg Metoclopramide HCl (Reglan) 5 mg IVP ACHS [facility] Last Admin: 10/10/16 16:30 Dose: 5 mg Mirtazapine (Remeron) 15 mg PO HS [facility] Last Admin: 10/09/16 22:31 Dose: 15 mg Ondansetron HCl (Zofran Inj) 4 mg IVP Q8 [facility] Last Admin: 10/10/16 05:57 Dose: 4 mg Raloxifene HCl (Evista) 60 mg PO DAILY [facility] Last Admin: 10/10/16 09:54 Dose: 60 mg Saccharomyces Boulardii (Florastor) 250 mg PO DAILY [facility] Last Admin: 10/10/16 09:14 Dose: 250 mg Sucralfate (Carafate Tab) 1 gm PO AC [facility] Last Admin: 10/10/16 16:30 Dose: 1 gm - Labs Labs: 10/09/16 10:45 10/10/16 08:02
[2016-10-11] MEDS: Albuterol 0.083% Inhal Sol (2.5 mg/3 mL) UD INH SCH ×6 (01:28→23:37)
[2016-10-11] MEDS: Sodium Chloride 0.9% 1,000 ML IV SCH ×3 (05:41→23:01)
[2016-10-11] MEDS: Levothyroxine 150 MCG TAB PO SCH (05:42)
[2016-10-11 07:18] LABS: ALBUMIN 3.2 g/dL (3.5-5.0)
[2016-10-11 07:22] LABS: MAGNESIUM 1.8 mg/dL (1.6-2.3)
[2016-10-11 07:33] LABS: CK-MB 3.04 ng/mL (0.0-3.38)
[2016-10-11 07:39] LABS: T4 9.76 ug/dL (5.5-11.0)
[2016-10-11] MEDS: Clindamycin 600mg/50ml D5W 600 MG/50 ML VIAL IVPB SCH ×2 (07:59→18:03)
[2016-10-11 08:08] LABS: CALCIUM 14.2 mg/dl (8.6-10.4)
--- NOTE | 2016-10-11 08:53 | PCM.RRTMUL ---
<Ar Head Donny - Last Filed: 10/11/16 09:12> ANALYTICAL RESEARCH PROGRAM MANAGER Nurses Assessment - Situation ANALYTICAL RESEARCH PROGRAM MANAGER Responder Arrival Time:: 08:27 Location:: 3T Room Number:: 364A ANALYTICAL RESEARCH PROGRAM MANAGER Reason for Call: Chest Pain ANALYTICAL RESEARCH PROGRAM MANAGER Called By: RN - IV IV Inserted during ANALYTICAL RESEARCH PROGRAM MANAGER?: No - Respiratory Oxygen Delivery Method:: Nasal Cannula - Medication Medications Administered During ANALYTICAL RESEARCH PROGRAM MANAGER :: Nitroglycerin 0.4mg - Diagnostic Test Ordered EKG:: Yes Chest X-Ray:: Yes - Stat Labs Ordered ANALYTICAL RESEARCH PROGRAM MANAGER Stat Labs Ordered:: CBC, TROPONIN CPR started during ANALYTICAL RESEARCH PROGRAM MANAGER?: No - Vital Signs Blood Pressure:: 182/89 Pulse Rate:: 91 Respiratory Rate:: 20 Temperature:: 98.2 F - Time ANALYTICAL RESEARCH PROGRAM MANAGER Ended Time ANALYTICAL RESEARCH PROGRAM MANAGER Ended:: 08:52 - Vital Signs at end of ANALYTICAL RESEARCH PROGRAM MANAGER Blood Pressure:: 109/60 Pulse Rate:: 78 Respiratory Rate:: 20 Temperature:: 98.6 F O2 Sat by Pulse Oximetry:: 97 - Recommendations 5) ANALYTICAL RESEARCH PROGRAM MANAGER Level of Care Recommendations: Transfer to Telemetry I.Reason for ANALYTICAL RESEARCH PROGRAM MANAGER - A) Acute Change in Patient: (Select all that apply): Staff member or family is worried about patient Subjective: An ANALYTICAL RESEARCH PROGRAM MANAGER was called at 8:25 because the RN was concerned about Mrs Rowe's chest pain in the context of elevated troponin 0.679. Dr Mccray and I arrived to the pt's room at 8:27. A stat ekg and chest xray were ordered. She was switched from 3L oxygen nasal cannula to ventimask 50%. The new ekg was compared with at old ekg. The new ekg did not show any acute changes or st segment elevations. The qt interval was normal. A picture was texted to churn operator Dr Dove. Dr Mccray spoke with Dr dove and they both agreed there were no acute changes on the new ekg. A portable chest xray was ordered which showed multifocal pneumonia. Aspirin 325mg was attempted but the patient refused saying her primary doctor told her not to take it. Her systolic blood pressure was elevated in the 180s. She was given 0.4mg of nitroglycerin which brought her systolic bp down to 109. New ROMIs have been ordered stat. She is now being transferred to telemetry. Dr Nelson Berger was called but was unreachable, a voicemail was left. - Constitutional Appears: Well, No Acute Distress - Head Head Exam: NORMAL INSPECTION - Eyes Eye Exam: EOMI, Normal appearance - Respiratory Exam Respiratory Exam: Clear to Ausculation Bilateral, NORMAL BREATHING PATTERN - Cardiovascular Exam Cardiovascular Exam: REGULAR RHYTHM - GI/Abdominal Exam GI & Abdominal Exam: Tenderness - Neurological Exam Neurological Exam: Alert, Awake, Oriented x3 <Abena Mccray V - Last Filed: 10/11/16 09:30> Attending/Attestation - Attestation I have personally seen and examined this patient.: Yes I have fully participated in the care of the patient.: Yes I have reviewed all pertinent clinical information, including history, physical exam and plan: Yes Notes (Text): Hospitalist responding to ANALYTICAL RESEARCH PROGRAM MANAGER this morning. Per discussion with nurse, rapid was called because patient had reported to her she was having chest pain, and the troponin became positive. Patient see at bedside. Patient is awake, alert, conversant cachetic woman, in no acute distress at bedside.. Patient reports she has "chest pains" all the time and goes to the belly. Patient reports history of strokes. Patient reports she was told by her churn operator/primary to NOT take aspirin unclear why. Patient ordered for Aspirin 325mg PO X1, patient refused at bedside. Patient transitied from nasal cannula )2 at 3 Liters to Ventimask at 50%. Patient's heart rate in the 70-80s, and Blood pressure initial SBP: 180s. Patient denies history of heart attack in the past. Per review of EMR, patient has been hospitalized for multifocal pneumonia, undergoing workup for hypercalcemia/metastasis workup, and history of parxosyaml atrial fibrilaltion. Patient on the monitor appears in sinus. Patient 's EKG is abnormal, reviewed with Dr. Dove, peanut picker, no acute intervention at this time, recommended to transfer the patient to telemetry and will speak with patient's primary doctor, Dr. Berger. Patient given one dose of Nitroglycerin 0.4 sublingual by mouth. EKG QT 380s in light of hypercalcemia. Patient's CT chest from earlier shows multfocal pneumonia. Repeat chest xray today reflects this diagnosis. Transfer order placed to telemetry.
--- NOTE | 2016-10-11 09:29 | CP.PCM.PN ---
Subjective - Date & Time of Evaluation Date of Evaluation: 10/11/16 Time of Evaluation: 08:30 - Subjective Subjective: Hospitalist responding to REGIONAL TRAINING MANAGER this morning. Per discussion with nurse, rapid was called because patient had reported to her she was having chest pain, and the troponin became positive. Patient see at bedside. Patient is awake, alert, conversant. Patient reports she has "chest pains" all the time and goes to the belly. Patient reports history of strokes. Patient reports she was told by her hall manager/primary to NOT take aspirin unclear why. Patient ordered for Aspirin 325mg PO X1, patient refused at bedside. Patient transitied from nasal cannula )2 at 3 Liters to Ventimask at 50 %. Patient's heart rate in the 70-80s, and Blood pressure initial SBP: 180s. Patient denies history of heart attack, Per review of EMR, patient has been hospitalized for multifocal pneumonia, undergoing workup for hypercalcemia/metastasis workup, and history of parxosyaml atrial fibrilaltion. Patient on the monitor appears in sinus. Patient 's EKG is abnormal, reviewed with Dr. Dove, mystery shopper, no acute intervention at this time, recommended to transfer the patient to telemetry and will speak with patient's primary doctor, Dr. Berger. Patient given one dose of Nitroglycerin 0.4 sublingual by mouth. EKG QT 380s in light of hypercalcemia. Patient's CT chest from earlier shows multfocal pneumonia. Repeat chest xray today reflects this diagnosis. Transfer order placed to telemetry. Objective - Vital Signs/Intake and Output Vital Signs (last 24 hours): Temp Pulse Resp BP Pulse Ox 98.2 F 91 H 20 182/89 H 92 L 10/11/16 09:12 10/11/16 09:12 10/11/16 09:12 10/11/16 09:12 10/11/16 06:28 Intake and Output: 10/11/16 10/11/16 06:59 18:59 Intake Total 1870 Balance 1870 - Medications Medications: Current Medications Acetaminophen (Tylenol 325mg Tab) 650 mg PO Q6 PRN PRN Reason: Pain, moderate (4-7) Last Admin: 10/09/16 23:41 Dose: 650 mg Albuterol Sulfate (Albuterol 0.083% Inhal Rosie (2.5 Mg/3 Ml) Ud) 2.5 mg INH RQ6 [facility] Last Admin: 10/11/16 08:18 Dose: Not Given Alprazolam (Xanax) 0.5 mg PO HS PRN PRN Reason: Anxiety Last Admin: 10/10/16 00:24 Dose: 0.5 mg Amiodarone HCl (Cordarone) 200 mg PO DAILY [facility] Last Admin: 10/10/16 09:15 Dose: 200 mg Amlodipine Besylate (Norvasc) 5 mg PO DAILY [facility] Bisacodyl (Dulcolax) 10 mg [place] DAILY [facility] Last Admin: 10/10/16 09:12 Dose: 10 mg Clonidine HCl (Catapres-Tts3 0.3 Mg/24 Hr) 1 patch TD QWK [facility] Last Admin: 10/10/16 09:54 Dose: 1 patch Enoxaparin Sodium (Lovenox) 40 mg SC DAILY [facility] Last Admin: 10/10/16 09:06 Dose: 40 mg Famotidine (Pepcid) 40 mg IVP Q12 [facility] Last Admin: 10/10/16 21:50 Dose: 40 mg Clindamycin Phosphate (Cleocin) 600 mg in 50 mls @ 100 mls/hr IVPB Q8H [facility] Last Admin: 10/11/16 07:59 Dose: 100 mls/hr Sodium Chloride (Sodium Chloride 0.9%) 1,000 mls @ 100 mls/hr IV .Q10H [facility] Last Admin: 10/11/16 05:42 Dose: Not Given Lactulose (Enulose) 20 gm PO HS [facility] Last Admin: 10/10/16 21:51 Dose: 20 gm Levothyroxine Sodium (Synthroid) 100 mcg PO DAILY@0630 [facility] Levothyroxine Sodium (Synthroid) 150 mcg PO DAILY@0630 [facility] Last Admin: 10/11/16 05:42 Dose: 150 mcg Losartan Potassium (Cozaar) 100 mg PO DAILY [facility] Last Admin: 10/10/16 09:15 Dose: 100 mg Metoclopramide HCl (Reglan) 5 mg IVP ACHS [facility] Last Admin: 10/11/16 07:58 Dose: 5 mg Mirtazapine (Remeron) 15 mg PO HS [facility] Last Admin: 10/10/16 21:52 Dose: 15 mg Ondansetron HCl (Zofran Inj) 4 mg IVP Q8 [facility] Last Admin: 10/11/16 05:42 Dose: 4 mg Raloxifene HCl (Evista) 60 mg PO DAILY [facility] Last Admin: 10/10/16 09:54 Dose: 60 mg Saccharomyces Boulardii (Florastor) 250 mg PO DAILY [facility] Last Admin: 10/10/16 09:14 Dose: 250 mg Sucralfate (Carafate Tab) 1 gm PO AC [facility] Last Admin: 10/11/16 07:58 Dose: 1 gm - Labs Labs: 10/09/16 10:45 10/11/16 06:49
[2016-10-11 11:15] LABS: BASO # 0.1 K/uL (0.0-0.2); BASO % 1.1 % (0.0-2.0); EOS # 0.1 K/uL (0.0-0.7); EOS % 0.9 % (0.0-4.0); HEMOGLOBIN 13.1 g/dL (11.0-16.0); LYMPH # 1.5 K/uL (1.0-4.3); LYMPH % 10.6 % (20.0-40.0); MEAN CELL VOLUME 92.5 fL (81.0-99.0); MEAN CORPUSCULAR HEMOGLOBIN 30.1 pg (27.0-31.0); MEAN CORPUSCULAR HGB CONC 32.6 g/dL (33.0-37.0); MEAN PLATELET VOLUME 11.1 fL (7.2-11.7); MONO # 1.3 K/uL (0.0-0.8); MONO % 9.2 % (0.0-10.0); NEUT # 10.7 K/uL (1.8-7.0); NEUT % 78.2 % (50.0-75.0); RBC 4.36 Mil/uL (3.80-5.20); RED CELL DISTRIBUTION WIDTH 14.1 % (11.5-14.5); WHITE BLOOD COUNT 13.7 K/uL (4.8-10.8)
[2016-10-11 11:36] LABS: CK-MB 3.48 ng/mL (0.0-3.38)
[2016-10-11] MEDS ORDERED: Midazolam 2 MG/2 ML VIAL ONE (11:59)
[2016-10-11] MEDS ORDERED: Iodixanol 320 MG/ML 200 ML BOTTLE IV ONE (12:00)
[2016-10-11] MEDS: Enoxaparin 40 mg Syringe SC SCH (12:18)
--- NOTE | 2016-10-11 12:20 | RAD ---
Chest x-ray single frontal view History: Chest pain. Comparison: 10/10/2016 Findings: Biapical pleural thickening with upper lobe granulomatous changes. Confluent scattered areas of nodular consolidative changes seen within the upper to mid lung zones as well as the left lung base. Prominent bibasilar breast and nipple shadows. Bilateral hilar prominence. Calcification at the aortic knob. Degenerative changes in the spine and shoulders. Impression: Biapical pleural thickening with upper lobe granulomatous changes. Confluent scattered areas of nodular consolidative changes seen within the upper to mid lung zones as well as the left lung base. Prominent bibasilar breast and nipple shadows. Bilateral hilar prominence. Calcification at the aortic knob. Degenerative changes in the spine and shoulders.
--- NOTE | 2016-10-11 12:55 | CP.PCM.PN ---
Subjective - Date & Time of Evaluation Date of Evaluation: 10/11/16 Time of Evaluation: 12:55 - Subjective Subjective: cardiac cath is performed. proximal LAD 75% LCx mild disease RCA 90% mid LVEF 50%. Plan: medical therapy due to multiple comorbidities and high risk. Objective - Vital Signs/Intake and Output Vital Signs (last 24 hours): Temp Pulse Resp BP Pulse Ox 97.7 F 76 20 187/79 H 97 10/11/16 11:29 10/11/16 11:29 10/11/16 11:29 10/11/16 11:29 10/11/16 11:29 Intake and Output: 10/11/16 10/11/16 06:59 18:59 Intake Total 1870 Balance 1870 - Medications Medications: Current Medications Acetaminophen (Tylenol 325mg Tab) 650 mg PO Q6 PRN PRN Reason: Pain, moderate (4-7) Last Admin: 10/09/16 23:41 Dose: 650 mg Albuterol Sulfate (Albuterol 0.083% Inhal Rosie (2.5 Mg/3 Ml) Ud) 2.5 mg INH RQ6 [facility] Last Admin: 10/11/16 08:18 Dose: Not Given Alprazolam (Xanax) 0.5 mg PO HS PRN PRN Reason: Anxiety Last Admin: 10/10/16 00:24 Dose: 0.5 mg Amiodarone HCl (Cordarone) 200 mg PO DAILY [facility] Last Admin: 10/10/16 09:15 Dose: 200 mg Amlodipine Besylate (Norvasc) 5 mg PO DAILY [facility] Bisacodyl (Dulcolax) 10 mg OR DAILY [facility] Last Admin: 10/10/16 09:12 Dose: 10 mg Clonidine HCl (Catapres-Tts3 0.3 Mg/24 Hr) 1 patch TD QWK [facility] Last Admin: 10/10/16 09:54 Dose: 1 patch Enoxaparin Sodium (Lovenox) 40 mg SC DAILY [facility] Last Admin: 10/11/16 12:18 Dose: Not Given Famotidine (Pepcid) 40 mg IVP Q12 [facility] Last Admin: 10/11/16 12:18 Dose: Not Given Clindamycin Phosphate (Cleocin) 600 mg in 50 mls @ 100 mls/hr IVPB Q8H [facility] Last Admin: 10/11/16 07:59 Dose: 100 mls/hr Sodium Chloride (Sodium Chloride 0.9%) 1,000 mls @ 100 mls/hr IV .Q10H [facility] Last Admin: 10/11/16 05:42 Dose: Not Given Lactulose (Enulose) 20 gm PO HS [facility] Last Admin: 10/10/16 21:51 Dose: 20 gm Levothyroxine Sodium (Synthroid) 100 mcg PO DAILY@0630 [facility] Levothyroxine Sodium (Synthroid) 150 mcg PO DAILY@0630 [facility] Last Admin: 10/11/16 05:42 Dose: 150 mcg Losartan Potassium (Cozaar) 100 mg PO DAILY [facility] Last Admin: 10/10/16 09:15 Dose: 100 mg Metoclopramide HCl (Reglan) 5 mg IVP ACHS [facility] Last Admin: 10/11/16 12:18 Dose: Not Given Mirtazapine (Remeron) 15 mg PO HS [facility] Last Admin: 10/10/16 21:52 Dose: 15 mg Ondansetron HCl (Zofran Inj) 4 mg IVP Q8 [facility] Last Admin: 10/11/16 05:42 Dose: 4 mg Raloxifene HCl (Evista) 60 mg PO DAILY [facility] Last Admin: 10/10/16 09:54 Dose: 60 mg Saccharomyces Boulardii (Florastor) 250 mg PO DAILY [facility] Last Admin: 10/10/16 09:14 Dose: 250 mg Sucralfate (Carafate Tab) 1 gm PO AC [facility] Last Admin: 10/11/16 12:17 Dose: Not Given - Labs Labs: 10/11/16 11:02 10/11/16 06:49 Assessment and Plan (1) Paroxysmal atrial fibrillation Status: Acute (2) COPD (chronic obstructive pulmonary disease) Status: Acute
[2016-10-11] MEDS ORDERED: Sodium Chloride 0.9% 500 ML IV SCH (12:56)
[2016-10-11] MEDS ORDERED: Zoledronic Acid 4 mg/100 ml Inj(Zometa) IV ONE (13:09)
[2016-10-11] MEDS: Saccharomyces Boulardi 250 mg Cap PO SCH (15:01)
--- NOTE | 2016-10-11 18:06 | CP.PCM.PN ---
Subjective - Date & Time of Evaluation Date of Evaluation: 10/11/16 Time of Evaluation: 06:00 - Subjective Subjective: events noted s/p cardiac cath cultures thus far neg Procalcitonin low, TB quant is neg GI eval in progress Ca noted- PTH low possible parneoplastic/ neoplastic etiology Objective - Vital Signs/Intake and Output Vital Signs (last 24 hours): Temp Pulse Resp BP Pulse Ox 99.2 F 88 20 149/66 93 L 10/11/16 15:59 10/11/16 15:59 10/11/16 15:59 10/11/16 15:59 10/11/16 15:59 Intake and Output: 10/11/16 10/11/16 06:59 18:59 Intake Total 1870 Balance 1870 - Medications Medications: Current Medications Acetaminophen (Tylenol 325mg Tab) 650 mg PO Q6 PRN PRN Reason: Pain, moderate (4-7) Last Admin: 10/09/16 23:41 Dose: 650 mg Albuterol Sulfate (Albuterol 0.083% Inhal Rosie (2.5 Mg/3 Ml) Ud) 2.5 mg INH RQ6 [facility] Last Admin: 10/11/16 14:48 Dose: 2.5 mg Alprazolam (Xanax) 0.5 mg PO HS PRN PRN Reason: Anxiety Last Admin: 10/10/16 00:24 Dose: 0.5 mg Amiodarone HCl (Cordarone) 200 mg PO DAILY [facility] Last Admin: 10/11/16 14:57 Dose: 200 mg Amlodipine Besylate (Norvasc) 5 mg PO DAILY [facility] Last Admin: 10/11/16 14:57 Dose: 5 mg Bisacodyl (Dulcolax) 10 mg [place] DAILY [facility] Last Admin: 10/11/16 14:56 Dose: Not Given Clonidine HCl (Catapres-Tts3 0.3 Mg/24 Hr) 1 patch TD QWK [facility] Last Admin: 10/10/16 09:54 Dose: 1 patch Enoxaparin Sodium (Lovenox) 40 mg SC DAILY [facility] Last Admin: 10/11/16 12:18 Dose: Not Given Famotidine (Pepcid) 40 mg IVP Q12 [facility] Last Admin: 10/11/16 12:18 Dose: Not Given Clindamycin Phosphate (Cleocin) 600 mg in 50 mls @ 100 mls/hr IVPB Q8H [facility] Last Admin: 10/11/16 07:59 Dose: 100 mls/hr Sodium Chloride (Sodium Chloride 0.9%) 1,000 mls @ 100 mls/hr IV .Q10H [facility] Last Admin: 10/11/16 05:42 Dose: Not Given Lactulose (Enulose) 20 gm PO HS [facility] Last Admin: 10/10/16 21:51 Dose: 20 gm Levothyroxine Sodium (Synthroid) 100 mcg PO DAILY@30 [facility] Levothyroxine Sodium (Synthroid) 150 mcg PO DAILY@0630 [facility] Last Admin: 10/11/16 05:42 Dose: 150 mcg Losartan Potassium (Cozaar) 100 mg PO DAILY [facility] Last Admin: 10/11/16 14:57 Dose: 100 mg Metoclopramide HCl (Reglan) 5 mg IVP ACHS [facility] Last Admin: 10/11/16 12:18 Dose: Not Given Mirtazapine (Remeron) 15 mg PO HS [facility] Last Admin: 10/10/16 21:52 Dose: 15 mg Ondansetron HCl (Zofran Inj) 4 mg IVP Q8 [facility] Last Admin: 10/11/16 14:57 Dose: 4 mg Raloxifene HCl (Evista) 60 mg PO DAILY [facility] Last Admin: 10/11/16 15:10 Dose: 60 mg Saccharomyces Boulardii (Florastor) 250 mg PO DAILY [facility] Last Admin: 10/11/16 15:01 Dose: 250 mg Sucralfate (Carafate Tab) 1 gm PO AC [facility] Last Admin: 10/11/16 12:17 Dose: Not Given - Labs Labs: 10/11/16 11:02 10/11/16 06:49 - Constitutional Appears: Non-toxic, Cachectic, Chronically Ill - Head Exam Head Exam: NORMOCEPHALIC - Eye Exam Eye Exam: PERRL. absent: Scleral icterus - ENT Exam ENT Exam: Mucous Membranes Dry, Normal External Ear Exam - Neck Exam Neck Exam: absent: Lymphadenopathy - Respiratory Exam Respiratory Exam: Decreased Breath Sounds - Cardiovascular Exam Cardiovascular Exam: REGULAR RHYTHM - GI/Abdominal Exam GI & Abdominal Exam: Distended, Soft Assessment and Plan (1) Dehydration Status: Acute (2) Hypercalcemia Status: Acute (3) Weakness generalized Status: Chronic
--- NOTE | 2016-10-11 20:40 | CP.PCM.PN ---
Subjective - Date & Time of Evaluation Date of Evaluation: 10/11/16 Time of Evaluation: 20:40 - Subjective Subjective: Patient still having serum calcium level, elevated. Patient received zolindronic acid today. Patient is still feeling weak and tired. She underwent the angiogram today for release. Evidence of multivessel disease noted, suggested to have the medical management only as per the cardiology. Patient is having no cough. Repeat chest x-ray showing diffuse pulmonary infiltrative changes. On examination: HEENT PERRLA, neck supple No thyromegaly was noted and no cervical adenopathy noted Chest bilateral good air entry, no wheezing or rales noted CVS regular heart sound, no murmur Abdomen soft and no organomegaly Extremities no pedal edema, no leg swelling, pedal pulses are good. The patient is somewhat confused. Labs reviewed. Assessment/recommendation 81-year-old female with history of atrial fibrillation on amiodarone hypertension and bronchial asthma. Chronic lung changes. Patient is having hypercalcemia, underlying cancer cannot be ruled out. Dysphagia noted. Barium swallow study may be indicated. Continue the IV fluid and management as per endocrine. Patient is having no evidence of fever, but infiltrative changes noted, underlying malignancy cannot be ruled out. Patient will need a bronchoscopy, will speak to the PMD and family. Objective - Vital Signs/Intake and Output Vital Signs (last 24 hours): Temp Pulse Resp BP Pulse Ox 99.2 F 88 20 149/66 93 L 10/11/16 15:59 10/11/16 15:59 10/11/16 15:59 10/11/16 15:59 10/11/16 15:59 - Medications Medications: Current Medications Acetaminophen (Tylenol 325mg Tab) 650 mg PO Q6 PRN PRN Reason: Pain, moderate (4-7) Last Admin: 10/09/16 23:41 Dose: 650 mg Albuterol Sulfate (Albuterol 0.083% Inhal Rosie (2.5 Mg/3 Ml) Ud) 2.5 mg INH RQ6 [facility] Last Admin: 10/11/16 19:06 Dose: Not Given Alprazolam (Xanax) 0.5 mg PO HS PRN PRN Reason: Anxiety Last Admin: 10/10/16 00:24 Dose: 0.5 mg Amiodarone HCl (Cordarone) 200 mg PO DAILY [facility] Last Admin: 10/11/16 14:57 Dose: 200 mg Amlodipine Besylate (Norvasc) 5 mg PO DAILY [facility] Last Admin: 10/11/16 14:57 Dose: 5 mg Bisacodyl (Dulcolax) 10 mg [place] DAILY [facility] Last Admin: 10/11/16 14:56 Dose: Not Given Clonidine HCl (Catapres-Tts3 0.3 Mg/24 Hr) 1 patch TD QWK [facility] Last Admin: 10/10/16 09:54 Dose: 1 patch Enoxaparin Sodium (Lovenox) 40 mg SC DAILY [facility] Last Admin: 10/11/16 12:18 Dose: Not Given Famotidine (Pepcid) 40 mg IVP Q12 [facility] Last Admin: 10/11/16 12:18 Dose: Not Given Clindamycin Phosphate (Cleocin) 600 mg in 50 mls @ 100 mls/hr IVPB Q8H [facility] Last Admin: 10/11/16 18:03 Dose: 100 mls/hr Sodium Chloride (Sodium Chloride 0.9%) 1,000 mls @ 100 mls/hr IV .Q10H [facility] Last Admin: 10/11/16 05:42 Dose: Not Given Lactulose (Enulose) 20 gm PO HS [facility] Last Admin: 10/10/16 21:51 Dose: 20 gm Levothyroxine Sodium (Synthroid) 100 mcg PO DAILY@0630 [facility] Levothyroxine Sodium (Synthroid) 150 mcg PO DAILY@0630 [facility] Last Admin: 10/11/16 05:42 Dose: 150 mcg Losartan Potassium (Cozaar) 100 mg PO DAILY [facility] Last Admin: 10/11/16 14:57 Dose: 100 mg Metoclopramide HCl (Reglan) 5 mg IVP ACHS [facility] Last Admin: 10/11/16 18:06 Dose: 5 mg Mirtazapine (Remeron) 15 mg PO HS [facility] Last Admin: 10/10/16 21:52 Dose: 15 mg Ondansetron HCl (Zofran Inj) 4 mg IVP Q8 [facility] Last Admin: 10/11/16 14:57 Dose: 4 mg Raloxifene HCl (Evista) 60 mg PO DAILY [facility] Last Admin: 10/11/16 15:10 Dose: 60 mg Saccharomyces Boulardii (Florastor) 250 mg PO DAILY [facility] Last Admin: 10/11/16 15:01 Dose: 250 mg Sucralfate (Carafate Tab) 1 gm PO AC [facility] Last Admin: 10/11/16 18:05 Dose: 1 gm - Labs Labs: 10/11/16 11:02 10/11/16 06:49
--- NOTE | 2016-10-11 23:35 | CP.PCM.PN ---
Subjective - Date & Time of Evaluation Date of Evaluation: 10/11/16 Time of Evaluation: 15:10 - Subjective Subjective: Called by nursing today that pt had developed an episode of chest pain wherein darci RDZ called to intervene. MIGUEL and EKG ordered, and 1st result showed + troponin at 0.6. Cardiology had already been notified and plan to undergo cardiac already in the works per communication with Cardio. > Pt successfully underwent procedure and was called by nursing on the floor for hypoxemia. Re-ordered neb treatments and if Pox did not increase ordered to ICU evaluation to allow for closer monitoring. Pt did improve with treatment though, and remains comfortable Objective - Vital Signs/Intake and Output Vital Signs (last 24 hours): Temp Pulse Resp BP Pulse Ox 99.1 F 80 18 145/67 95 10/11/16 20:00 10/11/16 20:00 10/11/16 20:00 10/11/16 20:00 10/11/16 20:00 Intake and Output: 10/11/16 10/12/16 18:59 06:59 Intake Total 250 Balance 250 - Medications Medications: Current Medications Acetaminophen (Tylenol 325mg Tab) 650 mg PO Q6 PRN PRN Reason: Pain, moderate (4-7) Last Admin: 10/09/16 23:41 Dose: 650 mg Albuterol Sulfate (Albuterol 0.083% Inhal Rosie (2.5 Mg/3 Ml) Ud) 2.5 mg INH RQ6 [facility] Last Admin: 10/11/16 19:06 Dose: Not Given Alprazolam (Xanax) 0.5 mg PO HS PRN PRN Reason: Anxiety Last Admin: 10/10/16 00:24 Dose: 0.5 mg Amiodarone HCl (Cordarone) 200 mg PO DAILY [facility] Last Admin: 10/11/16 14:57 Dose: 200 mg Amlodipine Besylate (Norvasc) 5 mg PO DAILY [facility] Last Admin: 10/11/16 14:57 Dose: 5 mg Bisacodyl (Dulcolax) 10 mg [place] DAILY [facility] Last Admin: 10/11/16 14:56 Dose: Not Given Clonidine HCl (Catapres-Tts3 0.3 Mg/24 Hr) 1 patch TD QWK [facility] Last Admin: 10/10/16 09:54 Dose: 1 patch Enoxaparin Sodium (Lovenox) 40 mg SC DAILY [facility] Last Admin: 10/11/16 12:18 Dose: Not Given Famotidine (Pepcid) 40 mg IVP Q12 [facility] Last Admin: 10/11/16 21:24 Dose: 40 mg Clindamycin Phosphate (Cleocin) 600 mg in 50 mls @ 100 mls/hr IVPB Q8H [facility] Last Admin: 10/11/16 18:03 Dose: 100 mls/hr Sodium Chloride (Sodium Chloride 0.9%) 1,000 mls @ 100 mls/hr IV .Q10H [facility] Last Admin: 10/11/16 23:01 Dose: 100 mls/hr Lactulose (Enulose) 20 gm PO HS [facility] Last Admin: 10/11/16 21:23 Dose: 20 gm Levothyroxine Sodium (Synthroid) 100 mcg PO DAILY@0630 [facility] Levothyroxine Sodium (Synthroid) 150 mcg PO DAILY@0630 [facility] Last Admin: 10/11/16 05:42 Dose: 150 mcg Losartan Potassium (Cozaar) 100 mg PO DAILY [facility] Last Admin: 10/11/16 14:57 Dose: 100 mg Metoclopramide HCl (Reglan) 5 mg IVP ACHS [facility] Last Admin: 10/11/16 21:24 Dose: 5 mg Mirtazapine (Remeron) 15 mg PO HS [facility] Last Admin: 10/11/16 21:24 Dose: 15 mg Ondansetron HCl (Zofran Inj) 4 mg IVP Q8 [facility] Last Admin: 10/11/16 21:24 Dose: 4 mg Raloxifene HCl (Evista) 60 mg PO DAILY [facility] Last Admin: 10/11/16 15:10 Dose: 60 mg Saccharomyces Boulardii (Florastor) 250 mg PO DAILY [facility] Last Admin: 10/11/16 15:01 Dose: 250 mg Sucralfate (Carafate Tab) 1 gm PO AC [facility] Last Admin: 10/11/16 18:05 Dose: 1 gm - Labs Labs: 10/11/16 11:02 10/11/16 06:49 - Constitutional Appears: No Acute Distress - Head Exam Head Exam: NORMAL INSPECTION - Eye Exam Eye Exam: Normal appearance Pupil Exam: NORMAL ACCOMODATION - ENT Exam ENT Exam: Normal Exam - Neck Exam Neck Exam: Normal Inspection - Respiratory Exam Respiratory Exam: Rhonchi, NORMAL BREATHING PATTERN - Cardiovascular Exam Cardiovascular Exam: REGULAR RHYTHM - GI/Abdominal Exam GI & Abdominal Exam: Hypoactive Bowel Sounds - Rectal Exam Rectal Exam: Deferred - Extremities Exam Extremities Exam: Normal Inspection - Back Exam Back Exam: NORMAL INSPECTION - Neurological Exam Neurological Exam: Awake (occ confused) - Psychiatric Exam Psychiatric exam: Normal Affect, Normal Mood - Skin Skin Exam: Dry, Intact, Normal Color Assessment and Plan (1) Myocardial infarction acute Assessment & Plan: new onset today, and cardiac cath showed 75% LAD and 90 % RCA disease. Medical management to continue. Surgical intervention not an option at this time es with pt's complicated co-morbidities. Status: Acute (2) Pneumonia Assessment & Plan: no significant change in infiltrative changes/pulmonary scarring(??). Upper lobe granuomatous changes do not appear to be mycobacterial in nature, and no recurrence of similar lesions found elsewhere as of yet. No evidence of neoplasm found at this time. Status: Acute (3) Dehydration Status: Resolved (4) Hypercalcemia Assessment & Plan: suggested by Endo to have bisphosphonate. Made Endo aware of GI issues. 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 Status: Acute
[2016-10-12] MEDS: Clindamycin 600mg/50ml D5W 600 MG/50 ML VIAL IVPB SCH ×3 (00:07→16:49)
[2016-10-12] MEDS: Albuterol 0.083% Inhal Sol (2.5 mg/3 mL) UD INH SCH ×4 (01:32→19:26)
[2016-10-12] MEDS: Levothyroxine 150 MCG TAB PO SCH (05:46)
[2016-10-12 08:20] LABS: ALB/GLOB RATIO 1.1 (1.0-2.1)
--- NOTE | 2016-10-12 08:25 | CP.PCM.PN ---
Subjective - Date & Time of Evaluation Date of Evaluation: 10/12/16 Time of Evaluation: 08:00 - Subjective Subjective: no chest pain or dyspnea Objective - Vital Signs/Intake and Output Vital Signs (last 24 hours): Temp Pulse Resp BP Pulse Ox 97.9 F 76 18 175/74 H 91 L 10/12/16 07:58 10/12/16 07:58 10/12/16 07:58 10/12/16 07:58 10/12/16 07:58 Intake and Output: 10/12/16 10/12/16 06:59 18:59 Intake Total 250 Balance 250 - Medications Medications: Current Medications Acetaminophen (Tylenol 325mg Tab) 650 mg PO Q6 PRN PRN Reason: Pain, moderate (4-7) Last Admin: 10/09/16 23:41 Dose: 650 mg Albuterol Sulfate (Albuterol 0.083% Inhal Rosie (2.5 Mg/3 Ml) Ud) 2.5 mg INH RQ6 [facility] Last Admin: 10/12/16 07:17 Dose: Not Given Alprazolam (Xanax) 0.5 mg PO HS PRN PRN Reason: Anxiety Last Admin: 10/10/16 00:24 Dose: 0.5 mg Amiodarone HCl (Cordarone) 200 mg PO DAILY [facility] Last Admin: 10/11/16 14:57 Dose: 200 mg Amlodipine Besylate (Norvasc) 5 mg PO DAILY [facility] Last Admin: 10/11/16 14:57 Dose: 5 mg Bisacodyl (Dulcolax) 10 mg [place] DAILY [facility] Last Admin: 10/11/16 14:56 Dose: Not Given Clonidine HCl (Catapres-Tts3 0.3 Mg/24 Hr) 1 patch TD QWK [facility] Last Admin: 10/10/16 09:54 Dose: 1 patch Enoxaparin Sodium (Lovenox) 40 mg SC DAILY [facility] Last Admin: 10/11/16 12:18 Dose: Not Given Famotidine (Pepcid) 40 mg IVP Q12 [facility] Last Admin: 10/11/16 21:24 Dose: 40 mg Clindamycin Phosphate (Cleocin) 600 mg in 50 mls @ 100 mls/hr IVPB Q8H [facility] Last Admin: 10/12/16 00:07 Dose: 100 mls/hr Sodium Chloride (Sodium Chloride 0.9%) 1,000 mls @ 100 mls/hr IV .Q10H [facility] Last Admin: 10/11/16 23:01 Dose: 100 mls/hr Lactulose (Enulose) 20 gm PO HS [facility] Last Admin: 10/11/16 21:23 Dose: 20 gm Levothyroxine Sodium (Synthroid) 150 mcg PO DAILY@0630 [facility] Last Admin: 10/12/16 05:46 Dose: 150 mcg Losartan Potassium (Cozaar) 100 mg PO DAILY [facility] Last Admin: 10/11/16 14:57 Dose: 100 mg Metoclopramide HCl (Reglan) 5 mg IVP ACHS [facility] Last Admin: 10/11/16 21:24 Dose: 5 mg Mirtazapine (Remeron) 15 mg PO HS [facility] Last Admin: 10/11/16 21:24 Dose: 15 mg Ondansetron HCl (Zofran Inj) 4 mg IVP Q8 [facility] Last Admin: 10/12/16 05:45 Dose: 4 mg Raloxifene HCl (Evista) 60 mg PO DAILY [facility] Last Admin: 10/11/16 15:10 Dose: 60 mg Saccharomyces Boulardii (Florastor) 250 mg PO DAILY [facility] Last Admin: 10/11/16 15:01 Dose: 250 mg Sucralfate (Carafate Tab) 1 gm PO AC [facility] Last Admin: 10/11/16 18:05 Dose: 1 gm - Labs Labs: 10/11/16 11:02 10/12/16 07:39 - Constitutional Appears: Non-toxic - Head Exam Head Exam: NORMAL INSPECTION - Eye Exam Eye Exam: Normal appearance - ENT Exam ENT Exam: Mucous Membranes Moist - Neck Exam Neck Exam: Full ROM - Respiratory Exam Respiratory Exam: NORMAL BREATHING PATTERN - Cardiovascular Exam Cardiovascular Exam: REGULAR RHYTHM - GI/Abdominal Exam GI & Abdominal Exam: Normal Bowel Sounds - Rectal Exam Rectal Exam: Deferred - Extremities Exam Extremities Exam: absent: Pedal Edema - Back Exam Back Exam: NORMAL INSPECTION - Neurological Exam Neurological Exam: Alert - Psychiatric Exam Psychiatric exam: Normal Affect - Skin Skin Exam: Normal Color Assessment and Plan (1) Paroxysmal atrial fibrillation Assessment & Plan: maintain amiodarone Status: Acute (2) COPD (chronic obstructive pulmonary disease) Assessment & Plan: per pulmonary Status: Acute (3) NSTEMI (non-ST elevated myocardial infarction) Assessment & Plan: s/p cardiac cath. patient has singifcant comorbidities. recommend medical theapy Status: Acute
[2016-10-12 08:44] LABS: CORTISOL AM 30.5 ug/dL (4.46-22.7)
[2016-10-12 09:33] LABS: CALCIUM 14.6 mg/dl (8.6-10.4)
[2016-10-12] MEDS: Enoxaparin 40 mg Syringe SC SCH (11:52)
[2016-10-12] MEDS: Bisacodyl 5mg EC Tab PO SCH ×2 (11:52→17:34)
[2016-10-12] MEDS: Saccharomyces Boulardi 250 mg Cap PO SCH (12:01)
--- NOTE | 2016-10-12 15:44 | CP.PCM.PN ---
Subjective - Date & Time of Evaluation Date of Evaluation: 10/12/16 Time of Evaluation: 09:00 - Subjective Subjective: EVENTS NOTED S/P ACUTE DC PULM INFILTRATES TB QUANT IS NEG Objective - Vital Signs/Intake and Output Vital Signs (last 24 hours): Temp Pulse Resp BP Pulse Ox 97.9 F 76 18 175/74 H 91 L 10/12/16 07:58 10/12/16 07:58 10/12/16 07:58 10/12/16 07:58 10/12/16 07:58 Intake and Output: 10/12/16 10/12/16 06:59 18:59 Intake Total 250 Balance 250 - Medications Medications: Current Medications Acetaminophen (Tylenol 325mg Tab) 650 mg PO Q6 PRN PRN Reason: Pain, moderate (4-7) Last Admin: 10/09/16 23:41 Dose: 650 mg Albuterol Sulfate (Albuterol 0.083% Inhal Rosie (2.5 Mg/3 Ml) Ud) 2.5 mg INH RQ6 [facility] Last Admin: 10/12/16 13:38 Dose: Not Given Alprazolam (Xanax) 0.5 mg PO HS PRN PRN Reason: Anxiety Last Admin: 10/10/16 00:24 Dose: 0.5 mg Amiodarone HCl (Cordarone) 200 mg PO DAILY [facility] Last Admin: 10/12/16 12:00 Dose: 200 mg Amlodipine Besylate (Norvasc) 5 mg PO DAILY [facility] Last Admin: 10/12/16 11:52 Dose: 5 mg Bisacodyl (Dulcolax) 5 mg PO BID [facility] Last Admin: 10/12/16 11:52 Dose: 5 mg Clonidine HCl (Catapres-Tts3 0.3 Mg/24 Hr) 1 patch TD QWK [facility] Last Admin: 10/10/16 09:54 Dose: 1 patch Enoxaparin Sodium (Lovenox) 40 mg SC DAILY [facility] Last Admin: 10/12/16 11:52 Dose: 40 mg Famotidine (Pepcid) 40 mg IVP Q12 [facility] Last Admin: 10/12/16 12:01 Dose: 40 mg Clindamycin Phosphate (Cleocin) 600 mg in 50 mls @ 100 mls/hr IVPB Q8H [facility] Last Admin: 10/12/16 11:52 Dose: 100 mls/hr Sodium Chloride (Sodium Chloride 0.9%) 1,000 mls @ 100 mls/hr IV .Q10H [facility] Last Admin: 10/11/16 23:01 Dose: 100 mls/hr Lactulose (Enulose) 20 gm PO HS [facility] Last Admin: 10/11/16 21:23 Dose: 20 gm Levothyroxine Sodium (Synthroid) 150 mcg PO DAILY@0630 [facility] Last Admin: 10/12/16 05:46 Dose: 150 mcg Losartan Potassium (Cozaar) 100 mg PO DAILY [facility] Last Admin: 10/12/16 11:53 Dose: 100 mg Mirtazapine (Remeron) 15 mg PO HS [facility] Last Admin: 10/11/16 21:24 Dose: 15 mg Ondansetron HCl (Zofran Inj) 4 mg IVP Q8 [facility] Last Admin: 10/12/16 05:45 Dose: 4 mg Raloxifene HCl (Evista) 60 mg PO DAILY [facility] Last Admin: 10/11/16 15:10 Dose: 60 mg Saccharomyces Boulardii (Florastor) 250 mg PO DAILY [facility] Last Admin: 10/12/16 12:01 Dose: 250 mg Sucralfate (Carafate Tab) 1 gm PO AC [facility] Last Admin: 10/12/16 12:00 Dose: 1 gm - Labs Labs: 10/11/16 11:02 10/12/16 07:39 - Constitutional Appears: Non-toxic, Chronically Ill - Head Exam Head Exam: NORMOCEPHALIC - Eye Exam Eye Exam: PERRL. absent: Scleral icterus - ENT Exam ENT Exam: Mucous Membranes Dry - Neck Exam Neck Exam: absent: Lymphadenopathy - Respiratory Exam Respiratory Exam: Decreased Breath Sounds, Clear to Ausculation Bilateral - Cardiovascular Exam Cardiovascular Exam: REGULAR RHYTHM - GI/Abdominal Exam GI & Abdominal Exam: Distended, Soft - Rectal Exam Rectal Exam: Deferred - Exam Exam: NORMAL INSPECTION Assessment and Plan (1) Dehydration Status: Resolved (2) Hypercalcemia Status: Acute (3) Weakness generalized Status: Chronic
--- NOTE | 2016-10-12 16:45 | CP.PCM.PN ---
Subjective - Date & Time of Evaluation Date of Evaluation: 10/12/16 Time of Evaluation: 16:41 - Subjective Subjective: Pt's calcium levels still elevated today, despite IV bisphosphonate, which further strengthens initial suspicion of a neoplastic process. Pt's pneumonia not as florid as one can expect given the level of pt's symptoms. > Pt's cardiac cath yesterday delineated blockages at LAD and RCA, but pt high risk for any other procedure. Cardio recommends medical mgt only and any surgical intervention will be high risk for mortality. Pt will not tolerate surgery at this time anyway bec of her physical condition. > Aware of Pulmonary suggestion for bronchoscopy to clarify malignancy status causing hypercalcemia. Had started the conversation with pt on 2nd day of admission but tests still pending at the time, hence no definite decision arrived at. Restarted conversation with pt and family. Objective - Vital Signs/Intake and Output Vital Signs (last 24 hours): Temp Pulse Resp BP Pulse Ox 97.9 F 76 18 175/74 H 91 L 10/12/16 07:58 10/12/16 07:58 10/12/16 07:58 10/12/16 07:58 10/12/16 07:58 Intake and Output: 10/12/16 10/12/16 06:59 18:59 Intake Total 250 Balance 250 - Medications Medications: Current Medications Acetaminophen (Tylenol 325mg Tab) 650 mg PO Q6 PRN PRN Reason: Pain, moderate (4-7) Last Admin: 10/09/16 23:41 Dose: 650 mg Albuterol Sulfate (Albuterol 0.083% Inhal Rosie (2.5 Mg/3 Ml) Ud) 2.5 mg INH RQ6 [facility] Last Admin: 10/12/16 13:38 Dose: Not Given Alprazolam (Xanax) 0.5 mg PO HS PRN PRN Reason: Anxiety Last Admin: 10/10/16 00:24 Dose: 0.5 mg Amiodarone HCl (Cordarone) 200 mg PO DAILY [facility] Last Admin: 10/12/16 12:00 Dose: 200 mg Amlodipine Besylate (Norvasc) 5 mg PO DAILY [facility] Last Admin: 10/12/16 11:52 Dose: 5 mg Bisacodyl (Dulcolax) 5 mg PO BID [facility] Last Admin: 10/12/16 11:52 Dose: 5 mg Clonidine HCl (Catapres-Tts3 0.3 Mg/24 Hr) 1 patch TD QWK [facility] Last Admin: 10/10/16 09:54 Dose: 1 patch Enoxaparin Sodium (Lovenox) 40 mg SC DAILY [facility] Last Admin: 10/12/16 11:52 Dose: 40 mg Famotidine (Pepcid) 40 mg IVP Q12 [facility] Last Admin: 10/12/16 12:01 Dose: 40 mg Clindamycin Phosphate (Cleocin) 600 mg in 50 mls @ 100 mls/hr IVPB Q8H [facility] Last Admin: 10/12/16 11:52 Dose: 100 mls/hr Sodium Chloride (Sodium Chloride 0.9%) 1,000 mls @ 100 mls/hr IV .Q10H [facility] Last Admin: 10/11/16 23:01 Dose: 100 mls/hr Lactulose (Enulose) 20 gm PO HS [facility] Last Admin: 10/11/16 21:23 Dose: 20 gm Levothyroxine Sodium (Synthroid) 150 mcg PO DAILY@0630 [facility] Last Admin: 10/12/16 05:46 Dose: 150 mcg Losartan Potassium (Cozaar) 100 mg PO DAILY [facility] Last Admin: 10/12/16 11:53 Dose: 100 mg Mirtazapine (Remeron) 15 mg PO HS [facility] Last Admin: 10/11/16 21:24 Dose: 15 mg Ondansetron HCl (Zofran Inj) 4 mg IVP Q8 [facility] Last Admin: 10/12/16 05:45 Dose: 4 mg Raloxifene HCl (Evista) 60 mg PO DAILY [facility] Last Admin: 10/11/16 15:10 Dose: 60 mg Saccharomyces Boulardii (Florastor) 250 mg PO DAILY [facility] Last Admin: 10/12/16 12:01 Dose: 250 mg Sucralfate (Carafate Tab) 1 gm PO AC [facility] Last Admin: 10/12/16 12:00 Dose: 1 gm - Labs Labs: 10/11/16 11:02 10/12/16 07:39 - Constitutional Appears: No Acute Distress, Cachectic - Head Exam Head Exam: ATRAUMATIC, NORMAL INSPECTION, NORMOCEPHALIC - Eye Exam Eye Exam: Normal appearance Pupil Exam: Fixed - Neck Exam Neck Exam: Normal Inspection - Respiratory Exam Respiratory Exam: NORMAL BREATHING PATTERN - Cardiovascular Exam Cardiovascular Exam: REGULAR RHYTHM - GI/Abdominal Exam GI & Abdominal Exam: Soft, Hypoactive Bowel Sounds - Rectal Exam Rectal Exam: Deferred - Extremities Exam Extremities Exam: Normal Capillary Refill, Normal Inspection - Back Exam Back Exam: NORMAL INSPECTION - Neurological Exam Neurological Exam: Alert, Awake Neuro motor strength exam: Left Upper Extremity: 3, Right Upper Extremity: 3, Left Lower Extremity: 2/1, Right Lower Extremity: 2/1 - Psychiatric Exam Psychiatric exam: Anxious, Depressed - Skin Skin Exam: Dry, Intact, Normal Color, Warm Assessment and Plan (1) Myocardial infarction acute Assessment & Plan: monitoring and attempting better control of BP Status: Acute (2) Pneumonia Assessment & Plan: on IV abx, though pt desaturating more frequently than before. hypoxemia may not be related to pneumonia but to presumed malignancy Status: Acute (3) Dehydration Status: Resolved (4) Hypercalcemia Assessment & Plan: continues to increase. imperative to find the malignancy but this begs the question: and then what? pt will not tolerate surgery nor chemotx at this time. Without a known focus, radiation not an option either. Will discuss with pt and family, although had preliminary discussions with pt on what the causes of her condition is and that cancer is a definite possiblity. 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
[2016-10-12 16:59] LABS: ANCA SCREEN NEGATIVE (NEGATIVE)
[2016-10-12] MEDS: Sodium Chloride 0.9% 1,000 ML IV SCH (18:41)
[2016-10-13] MEDS: Clindamycin 600mg/50ml D5W 600 MG/50 ML VIAL IVPB SCH ×3 (00:28→17:00)
[2016-10-13] MEDS: Albuterol 0.083% Inhal Sol (2.5 mg/3 mL) UD INH SCH ×4 (01:40→19:14)
[2016-10-13] MEDS: Sodium Chloride 0.9% 1,000 ML IV SCH ×2 (04:27→15:00)
[2016-10-13] MEDS: Levothyroxine 150 MCG TAB PO SCH (06:19)
[2016-10-13 10:25] LABS: ALBUMIN 3.1 g/dL (3.5-5.0)
[2016-10-13 10:28] LABS: ALB/GLOB RATIO 1.1 (1.0-2.1)
[2016-10-13] MEDS: Bisacodyl 5mg EC Tab PO SCH ×3 (12:54→18:24)
[2016-10-13] MEDS: Enoxaparin 40 mg Syringe SC SCH (12:55)
[2016-10-13] MEDS: Saccharomyces Boulardi 250 mg Cap PO SCH (12:55)
--- NOTE | 2016-10-13 13:33 | CP.PCM.PN ---
Subjective - Date & Time of Evaluation Date of Evaluation: 10/13/16 Time of Evaluation: 12:20 - Subjective Subjective: patient denies chest pain or dyspnea Objective - Vital Signs/Intake and Output Vital Signs (last 24 hours): Temp Pulse Resp BP Pulse Ox 97.9 F 105 H 22 156/89 H 95 10/13/16 10:01 10/13/16 10:01 10/13/16 10:01 10/13/16 10:01 10/13/16 10:01 Intake and Output: 10/13/16 10/13/16 06:59 18:59 Intake Total 220 Output Total 100 Balance 120 - Medications Medications: Current Medications Acetaminophen (Tylenol 325mg Tab) 650 mg PO Q6 PRN PRN Reason: Pain, moderate (4-7) Last Admin: 10/09/16 23:41 Dose: 650 mg Albuterol Sulfate (Albuterol 0.083% Inhal Rosie (2.5 Mg/3 Ml) Ud) 2.5 mg INH RQ6 [facility] Alprazolam (Xanax) 0.5 mg PO HS PRN PRN Reason: Anxiety Last Admin: 10/10/16 00:24 Dose: 0.5 mg Amiodarone HCl (Cordarone) 200 mg PO DAILY [facility] Last Admin: 10/13/16 12:52 Dose: 200 mg Amlodipine Besylate (Norvasc) 5 mg PO DAILY [facility] Last Admin: 10/13/16 12:53 Dose: 5 mg Bisacodyl (Dulcolax) 5 mg PO BID [facility] Last Admin: 10/13/16 12:55 Dose: 5 mg Clonidine HCl (Catapres-Tts3 0.3 Mg/24 Hr) 1 patch TD QWK [facility] Last Admin: 10/10/16 09:54 Dose: 1 patch Enoxaparin Sodium (Lovenox) 40 mg SC DAILY [facility] Last Admin: 10/13/16 12:55 Dose: 40 mg Famotidine (Pepcid) 40 mg IVP Q12 [facility] Last Admin: 10/13/16 12:55 Dose: 40 mg Clindamycin Phosphate (Cleocin) 600 mg in 50 mls @ 100 mls/hr IVPB Q8H [facility] Last Admin: 10/13/16 09:43 Dose: 100 mls/hr Sodium Chloride (Sodium Chloride 0.9%) 1,000 mls @ 100 mls/hr IV .Q10H [facility] Last Admin: 10/13/16 04:27 Dose: 100 mls/hr Lactulose (Enulose) 20 gm PO HS [facility] Last Admin: 10/12/16 22:33 Dose: 20 gm Levothyroxine Sodium (Synthroid) 150 mcg PO DAILY@0630 [facility] Last Admin: 10/13/16 06:19 Dose: 150 mcg Losartan Potassium (Cozaar) 100 mg PO DAILY [facility] Last Admin: 10/13/16 12:54 Dose: 100 mg Mirtazapine (Remeron) 15 mg PO [facility] Last Admin: 10/12/16 22:33 Dose: 15 mg Ondansetron HCl (Zofran Inj) 4 mg IVP Q8 [facility] Last Admin: 10/13/16 05:29 Dose: 4 mg Raloxifene HCl (Evista) 60 mg PO DAILY [facility] Last Admin: 10/13/16 12:53 Dose: 60 mg Saccharomyces Boulardii (Florastor) 250 mg PO DAILY [facility] Last Admin: 10/13/16 12:55 Dose: 250 mg Sucralfate (Carafate Tab) 1 gm PO AC [facility] Last Admin: 10/13/16 12:53 Dose: 1 gm - Labs Labs: 10/11/16 11:02 10/13/16 09:52 - Constitutional Appears: Chronically Ill - Head Exam Head Exam: NORMAL INSPECTION - Eye Exam Eye Exam: Normal appearance - ENT Exam ENT Exam: Mucous Membranes Moist - Neck Exam Neck Exam: Full ROM - Respiratory Exam Respiratory Exam: Decreased Breath Sounds - Cardiovascular Exam Cardiovascular Exam: REGULAR RHYTHM - GI/Abdominal Exam GI & Abdominal Exam: Normal Bowel Sounds - Rectal Exam Rectal Exam: Deferred - Extremities Exam Extremities Exam: absent: Pedal Edema - Back Exam Back Exam: NORMAL INSPECTION - Neurological Exam Neurological Exam: Alert - Psychiatric Exam Psychiatric exam: Normal Affect - Skin Skin Exam: Normal Color Assessment and Plan (1) Paroxysmal atrial fibrillation Assessment & Plan: maintains sinus rhythm Status: Acute (2) COPD (chronic obstructive pulmonary disease) Assessment & Plan: pulmonary follow up Status: Acute (3) NSTEMI (non-ST elevated myocardial infarction) Assessment & Plan: will continue conservative therapy for CAD Status: Acute
--- NOTE | 2016-10-13 15:43 | CP.PCM.PN ---
Subjective - Date & Time of Evaluation Date of Evaluation: 10/13/16 Time of Evaluation: 15:38 - Subjective Subjective: Pt seen and examined today and pt seemed amazingly better from when she was admittted last Saturday when one could barely converse with pt. Today pt was talking non-stop and despite pt's drops in O2 sat levels, showed no evidence of tachypnea nor respiratory distress. > Had a lengthy conversation with the patient, the daughter and son-in-law. Apprised them of the whole situation involving the hypercalcemia, the pneumonia , SC, dementia, and for the first time, the drop in calcium levels today. Daughter reports that she was also hospitalized in the past with the self-same symptoms as her mother, with increasing calcium levels, increasingly dysfunctional liver tests and kidney tests and is pptd by cold, much like Raynaud's disease. Pt's daughter diagnosed with mixed connective tissue disease after all her rheumatologic tests came back negative. Informed family that malignancy still had not been ruled out and based on pt's history, she would most probably need a bronchoscopy. > Advised pt and daughter that this was what pulmonary was proposing, despite a lack of a specific area in which to obtain sample biopsies. This procedure, though, was in line with ruling out malignancy as a cause of hypercalcemia. But with no direct evidence as to the presence of an obstructing lesion, it puts into question the necessity of this test because (1) where to obtain a sample biopsy 2(2) would pt be able to tolerate the ensuing interventions should the results show a malignancy. Therefore, the decision was to hold off on any invasive procedures at this time and await developments as well as hopefully, increase pt's strength and endurance for any possible interventions in the future. Objective - Vital Signs/Intake and Output Vital Signs (last 24 hours): Temp Pulse Resp BP Pulse Ox 97.9 F 105 H 22 156/89 H 95 10/13/16 10:01 10/13/16 10:01 10/13/16 10:01 10/13/16 10:01 10/13/16 10:01 Intake and Output: 10/13/16 10/13/16 06:59 18:59 Intake Total 220 Output Total 100 Balance 120 - Medications Medications: Current Medications Acetaminophen (Tylenol 325mg Tab) 650 mg PO Q6 PRN PRN Reason: Pain, moderate (4-7) Last Admin: 10/09/16 23:41 Dose: 650 mg Albuterol Sulfate (Albuterol 0.083% Inhal Rosie (2.5 Mg/3 Ml) Ud) 2.5 mg INH RQ6 [facility] Last Admin: 10/13/16 13:42 Dose: 2.5 mg Alprazolam (Xanax) 0.5 mg PO HS PRN PRN Reason: Anxiety Last Admin: 10/10/16 00:24 Dose: 0.5 mg Amiodarone HCl (Cordarone) 200 mg PO DAILY [facility] Last Admin: 10/13/16 12:52 Dose: 200 mg Amlodipine Besylate (Norvasc) 5 mg PO DAILY [facility] Last Admin: 10/13/16 12:53 Dose: 5 mg Bisacodyl (Dulcolax) 5 mg PO BID [facility] Last Admin: 10/13/16 12:55 Dose: 5 mg Clonidine HCl (Catapres-Tts3 0.3 Mg/24 Hr) 1 patch TD QWK [facility] Last Admin: 10/10/16 09:54 Dose: 1 patch Enoxaparin Sodium (Lovenox) 40 mg SC DAILY [facility] Last Admin: 10/13/16 12:55 Dose: 40 mg Famotidine (Pepcid) 40 mg IVP Q12 [facility] Last Admin: 10/13/16 12:55 Dose: 40 mg Clindamycin Phosphate (Cleocin) 600 mg in 50 mls @ 100 mls/hr IVPB Q8H [facility] Last Admin: 10/13/16 09:43 Dose: 100 mls/hr Sodium Chloride (Sodium Chloride 0.9%) 1,000 mls @ 100 mls/hr IV .Q10H [facility] Last Admin: 10/13/16 04:27 Dose: 100 mls/hr Lactulose (Enulose) 20 gm PO HS [facility] Last Admin: 10/12/16 22:33 Dose: 20 gm Levothyroxine Sodium (Synthroid) 150 mcg PO DAILY@0630 [facility] Last Admin: 10/13/16 06:19 Dose: 150 mcg Losartan Potassium (Cozaar) 100 mg PO DAILY [facility] Last Admin: 10/13/16 12:54 Dose: 100 mg Mirtazapine (Remeron) 15 mg PO HS [facility] Last Admin: 10/12/16 22:33 Dose: 15 mg Ondansetron HCl (Zofran Inj) 4 mg IVP Q8 [facility] Last Admin: 10/13/16 05:29 Dose: 4 mg Raloxifene HCl (Evista) 60 mg PO DAILY [facility] Last Admin: 10/13/16 12:53 Dose: 60 mg Saccharomyces Boulardii (Florastor) 250 mg PO DAILY [facility] Last Admin: 10/13/16 12:55 Dose: 250 mg Sucralfate (Carafate Tab) 1 gm PO AC [facility] Last Admin: 10/13/16 12:53 Dose: 1 gm - Labs Labs: 10/11/16 11:02 10/13/16 09:52 - Constitutional Appears: No Acute Distress - Head Exam Head Exam: ATRAUMATIC, NORMAL INSPECTION, NORMOCEPHALIC Additional comments: + Venti Mask - Eye Exam Eye Exam: Normal appearance Pupil Exam: PERRL - ENT Exam ENT Exam: Normal Exam - Neck Exam Neck Exam: Full ROM - Respiratory Exam Respiratory Exam: Clear to Ausculation Bilateral - Cardiovascular Exam Cardiovascular Exam: REGULAR RHYTHM - GI/Abdominal Exam GI & Abdominal Exam: Normal Bowel Sounds - Rectal Exam Rectal Exam: Deferred - Extremities Exam Extremities Exam: Tenderness Additional comments: very cold/almost icy to touch despite comfortable temperature in the room - Back Exam Back Exam: NORMAL INSPECTION - Neurological Exam Neurological Exam: Alert, Awake, Oriented x3 (oriented only to self) Neuro motor strength exam: Left Upper Extremity: 3, Right Upper Extremity: 3, Left Lower Extremity: 2/1, Right Lower Extremity: 2/1 - Psychiatric Exam Additional comments: + confabulation - Skin Skin Exam: Dry, Intact, Normal Color Additional comments: fingers cold to touch bilaterally Assessment and Plan (1) Myocardial infarction acute Status: Acute (2) Pneumonia Status: Acute (3) Dehydration Status: Resolved (4) Hypercalcemia Assessment & Plan: conversation with daughter enlightening since pt and daughter appear to have the same presentation, much like Raynaud's disease and ruy to rhabdomyollysis with derangement in calcium metabolism instead of .myolysis. Family wishes to defer invasive procedures at this time and will monitor calcium levels as well as keep pt warmer than usual to prevent recurrence of condition if she does improve with increased warmth. 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 Recommend [address] then [place]
--- NOTE | 2016-10-13 20:13 | PCM.RRTMUL ---
[employer] Nurses Assessment - Situation [employer] Responder Arrival Time:: 05:39 Location:: Room Number:: 555 [employer] Reason for Call: O2 Saturation below 90% [employer] Called By: RN - IV IV Inserted during [employer]ICE[employer]ERSON?: No New IV Insertion Tolerance:: Good - Respiratory Oxygen Delivery Method:: Nasal Cannula, Mask Received Nebulizer Treatments:: No Was the Patient Ventilated with Bag/Mask 100% O2?: No Secretions Suctioned?: No Was the Patient Intubated?: No Was the Patient Placed on a Ventilator?: No - Medication Medications Administered During [employer] :: O2 100% nonrebreather - Diagnostic Test Ordered EKG:: No Chest X-Ray:: No CT Scan:: No - Vital Signs Blood Pressure:: 150/86 Pulse Rate:: 102 Oxygen Saturation:: 82 - Reba Coma Scale Coma Scale Verbal:: Confused/able to answer (oriented to person, place, not time ) - Vital Signs at end of [employer] Pulse Rate:: 101 Respiratory Rate:: 20 O2 Sat by Pulse Oximetry:: 100 - Recommendations 5) [employer] Level of Care Recommendations: Remain in current setting I.Reason for [employer]ERSON - A) Acute Change in Patient: (Select all that apply): Acute change in SpO2 less (SpO2 82%) - A) Initial Vital Signs: Blood Pressure: 150/86 Pulse Rate: 102 O2 Sat by Pulse Oximetry: 82 - B) Neurological Status (Select all that apply): Alert, Responsive, Oriented (to person, place, not time ) - C) Respiratory Oxygen Delivery Method: Nasal Cannula @L/min, Face Mask @% (100%) - Head Head Exam: NORMAL INSPECTION, NORMOCEPHALIC - Eyes Eye Exam: EOMI, Normal appearance - Respiratory Exam Respiratory Exam: Clear to Ausculation Bilateral - Cardiovascular Exam Cardiovascular Exam: +S1, +S2 - GI/Abdominal Exam GI & Abdominal Exam: Soft, Normal Bowel Sounds. absent: Tenderness - Neurological Exam Neurological Exam: Alert, Awake. absent: Oriented x3 (oriented to person, place , not time) - Extremities Exam Extremities Exam: Normal Inspection Plan - A. End of [employer] Vital Signs: Pulse Rate: 101 O2 Sat by Pulse Oximetry: 100 - B. Assessment of Findings&Treatment Plan [employer]ERSON called at 5:39am for SpO2 of 82%. [employer] responded shortly after. As per nurse , when she went in the room to check the patient, the patient's NC was not on properly and the patient's lips were cyanotic. Nurse put NC back on. NRB mask was put on at 100% and the patient's O2 sat increased from 82% to 100%. Patient was talking, oriented to person and place but not time. She answered correctly to question about who the president was. Her vitals at the time of the event were 150/86, HR102, SpO2 82%. Vitals were monitored and stable.
--- NOTE | 2016-10-13 20:58 | CP.PCM.PN ---
Subjective - Date & Time of Evaluation Date of Evaluation: 10/12/16 Time of Evaluation: 20:58 - Subjective Subjective: Patient is somewhat confused. Awake and responding otherwise. No cough noted. Currently on IV fluid. No chest pain. Hypoxia noted. On nasal cannula. Patient is currently refusing at times to keep the oxygen Vital signs reviewed No neck vein distention noted Bilateral minimal wheezing noted CVS regular heart sound, no murmur noted Abdomen soft, nontender. Extremities no pedal edema Patient is awake and responding, but confused Hypercalcemia still noted, on IV fluid Assessment and a condition: 81-year-old female with a history of CAD, atrial fibrillation non-ST elevation MS. 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 Given the heart disease, and the extensive cardiac condition aggressive treatment may be futile. Patient will need a bronchoscopic evaluation, but the patient has a bilateral disease, the success rate may be less. Outpatient PET scan may be ideal. I spoke to the PMD, suggested to have oncology evaluation also. And in the IV hydration. Monitor the calcium level level Objective - Vital Signs/Intake and Output Vital Signs (last 24 hours): Temp Pulse Resp BP Pulse Ox 97.9 F 101 H 22 150/86 95 10/13/16 10:01 10/13/16 20:22 10/13/16 10:01 10/13/16 20:22 10/13/16 10:01 Intake and Output: 10/13/16 10/14/16 18:59 06:59 Intake Total 1250 Balance 1250 - Medications Medications: Current Medications Acetaminophen (Tylenol 325mg Tab) 650 mg PO Q6 PRN PRN Reason: Pain, moderate (4-7) Last Admin: 10/09/16 23:41 Dose: 650 mg Albuterol Sulfate (Albuterol 0.083% Inhal Rosie (2.5 Mg/3 Ml) Ud) 2.5 mg INH RQ6 [facility] Last Admin: 10/13/16 19:14 Dose: 2.5 mg Alprazolam (Xanax) 0.5 mg PO HS PRN PRN Reason: Anxiety Last Admin: 10/10/16 00:24 Dose: 0.5 mg Amiodarone HCl (Cordarone) 200 mg PO DAILY [facility] Last Admin: 10/13/16 12:52 Dose: 200 mg Amlodipine Besylate (Norvasc) 5 mg PO DAILY [facility] Last Admin: 10/13/16 12:55 Dose: Not Given Bisacodyl (Dulcolax) 5 mg PO BID [facility] Last Admin: 10/13/16 18:24 Dose: 5 mg Clonidine HCl (Catapres-Tts3 0.3 Mg/24 Hr) 1 patch TD QWK [facility] Last Admin: 10/10/16 09:54 Dose: 1 patch Enoxaparin Sodium (Lovenox) 40 mg SC DAILY [facility] Last Admin: 10/13/16 12:55 Dose: 40 mg Famotidine (Pepcid) 40 mg IVP Q12 [facility] Last Admin: 10/13/16 12:55 Dose: 40 mg Clindamycin Phosphate (Cleocin) 600 mg in 50 mls @ 100 mls/hr IVPB Q8H [facility] Last Admin: 10/13/16 17:00 Dose: 100 mls/hr Lactulose (Enulose) 20 gm PO HS [facility] Last Admin: 10/12/16 22:33 Dose: 20 gm Levothyroxine Sodium (Synthroid) 150 mcg PO DAILY@0630 [facility] Last Admin: 10/13/16 06:19 Dose: 150 mcg Losartan Potassium (Cozaar) 100 mg PO DAILY [facility] Last Admin: 10/13/16 12:54 Dose: 100 mg Mirtazapine (Remeron) 15 mg PO HS [facility] Last Admin: 10/12/16 22:33 Dose: 15 mg Ondansetron HCl (Zofran Inj) 4 mg IVP Q8 [facility] Last Admin: 10/13/16 05:29 Dose: 4 mg Raloxifene HCl (Evista) 60 mg PO DAILY [facility] Last Admin: 10/13/16 12:53 Dose: 60 mg Saccharomyces Boulardii (Florastor) 250 mg PO DAILY [facility] Last Admin: 10/13/16 12:55 Dose: 250 mg Sucralfate (Carafate Tab) 1 gm PO AC [facility] Last Admin: 10/13/16 18:24 Dose: 1 gm - Labs Labs: 10/11/16 11:02 10/13/16 09:52
--- NOTE | 2016-10-13 21:01 | CP.PCM.PN ---
Subjective - Date & Time of Evaluation Date of Evaluation: 10/13/16 Time of Evaluation: 21:01 - Subjective Subjective: Patient is somewhat confused. Awake and responding otherwise. No cough noted. Currently on IV fluid. No chest pain. Hypoxia noted. On nasal cannula. Patient is currently refusing at times to keep the oxygen Vital signs reviewed No neck vein distention noted Bilateral minimal wheezing noted CVS regular heart sound, no murmur noted Abdomen soft, nontender. Extremities no pedal edema Patient is awake and responding, but confused Hypercalcemia still noted, on IV fluid Assessment and a condition: 81-year-old female with a history of CAD, atrial fibrillation non-ST elevation CT. 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 Given the heart disease, and the extensive cardiac condition aggressive treatment may be futile. Patient will need a bronchoscopic evaluation, but the patient has a bilateral disease, the success rate may be less. Outpatient PET scan may be ideal. I spoke to the PMD, suggested to have oncology evaluation also. And in the IV hydration. Monitor the calcium level level Objective - Vital Signs/Intake and Output Vital Signs (last 24 hours): Temp Pulse Resp BP Pulse Ox 97.9 F 101 H 22 150/86 95 10/13/16 10:01 10/13/16 20:22 10/13/16 10:01 10/13/16 20:22 10/13/16 10:01 Intake and Output: 10/13/16 10/14/16 18:59 06:59 Intake Total 1250 Balance 1250 - Medications Medications: Current Medications Acetaminophen (Tylenol 325mg Tab) 650 mg PO Q6 PRN PRN Reason: Pain, moderate (4-7) Last Admin: 10/09/16 23:41 Dose: 650 mg Albuterol Sulfate (Albuterol 0.083% Inhal Rosie (2.5 Mg/3 Ml) Ud) 2.5 mg INH RQ6 [facility] Last Admin: 10/13/16 19:14 Dose: 2.5 mg Alprazolam (Xanax) 0.5 mg PO HS PRN PRN Reason: Anxiety Last Admin: 10/10/16 00:24 Dose: 0.5 mg Amiodarone HCl (Cordarone) 200 mg PO DAILY [facility] Last Admin: 10/13/16 12:52 Dose: 200 mg Amlodipine Besylate (Norvasc) 5 mg PO DAILY [facility] Last Admin: 10/13/16 12:55 Dose: Not Given Bisacodyl (Dulcolax) 5 mg PO BID [facility] Last Admin: 10/13/16 18:24 Dose: 5 mg Clonidine HCl (Catapres-Tts3 0.3 Mg/24 Hr) 1 patch TD QWK [facility] Last Admin: 10/10/16 09:54 Dose: 1 patch Enoxaparin Sodium (Lovenox) 40 mg SC DAILY [facility] Last Admin: 10/13/16 12:55 Dose: 40 mg Famotidine (Pepcid) 40 mg IVP Q12 [facility] Last Admin: 10/13/16 12:55 Dose: 40 mg Clindamycin Phosphate (Cleocin) 600 mg in 50 mls @ 100 mls/hr IVPB Q8H [facility] Last Admin: 10/13/16 17:00 Dose: 100 mls/hr Lactulose (Enulose) 20 gm PO HS [facility] Last Admin: 10/12/16 22:33 Dose: 20 gm Levothyroxine Sodium (Synthroid) 150 mcg PO DAILY@0630 [facility] Last Admin: 10/13/16 06:19 Dose: 150 mcg Losartan Potassium (Cozaar) 100 mg PO DAILY [facility] Last Admin: 10/13/16 12:54 Dose: 100 mg Mirtazapine (Remeron) 15 mg PO HS [facility] Last Admin: 10/12/16 22:33 Dose: 15 mg Ondansetron HCl (Zofran Inj) 4 mg IVP Q8 [facility] Last Admin: 10/13/16 05:29 Dose: 4 mg Raloxifene HCl (Evista) 60 mg PO DAILY [facility] Last Admin: 10/13/16 12:53 Dose: 60 mg Saccharomyces Boulardii (Florastor) 250 mg PO DAILY [facility] Last Admin: 10/13/16 12:55 Dose: 250 mg Sucralfate (Carafate Tab) 1 gm PO AC [facility] Last Admin: 10/13/16 18:24 Dose: 1 gm - Labs Labs: 10/11/16 11:02 10/13/16 09:52
[2016-10-14] MEDS: Clindamycin 600mg/50ml D5W 600 MG/50 ML VIAL IVPB SCH ×2 (00:19→08:33)
[2016-10-14] MEDS: Albuterol 0.083% Inhal Sol (2.5 mg/3 mL) UD INH SCH ×4 (01:18→20:35)
[2016-10-14] MEDS: Levothyroxine 150 MCG TAB PO SCH (06:45)
[2016-10-14 08:29] LABS: BASO # 0.1 K/uL (0.0-0.2); BASO % 0.4 % (0.0-2.0); EOS # 0.1 K/uL (0.0-0.7); EOS % 0.7 % (0.0-4.0); HEMOGLOBIN 11.9 g/dL (11.0-16.0); LYMPH # 0.8 K/uL (1.0-4.3); LYMPH % 5.1 % (20.0-40.0); MEAN CELL VOLUME 93.4 fL (81.0-99.0); MEAN CORPUSCULAR HGB CONC 32.1 g/dL (33.0-37.0); MONO # 1.1 K/uL (0.0-0.8); MONO % 7.3 % (0.0-10.0); NEUT # 13.4 K/uL (1.8-7.0); NEUT % 86.5 % (50.0-75.0); PLATELET COUNT 281 K/uL (130-400); RBC 3.95 Mil/uL (3.80-5.20); RED CELL DISTRIBUTION WIDTH 14.4 % (11.5-14.5)
[2016-10-14 08:31] LABS: WHITE BLOOD COUNT 15.7 K/uL (4.8-10.8)
[2016-10-14] MEDS: Sodium Chloride 0.9% 1,000 ML IV SCH ×2 (08:36→19:52)
[2016-10-14 08:38] LABS: CALCIUM 11.2 mg/dl (8.6-10.4)
[2016-10-14 09:12] LABS: ANISOCYTOSIS SLIGHT; LYMPHOCYTE 8 % (20-40); MICROCYTOSIS SLIGHT; MONOCYTE 6 % (0-10); NEUTROPHIL 86 % (50-75); PLATELET ESTIMATE NORMAL (NORMAL); POIKILOCYTOSIS SLIGHT; TOTAL CELLS COUNTED 100
[2016-10-14 09:13] LABS: OVALOCYTES SLIGHT; TEARDROP CELLS SLIGHT
--- NOTE | 2016-10-14 10:07 | CP.PCM.PN ---
Subjective - Date & Time of Evaluation Date of Evaluation: 10/14/16 Time of Evaluation: 09:05 - Subjective Subjective: PGY1 House Doctor Nurse called saying that patient was desaturating. Went to evaluate patient who was using accessory muscles to breath. Patient's 02 saturation was 86%. Respiratory therapist put patient on nonrebreather and 02 saturation came up to 96%. ABGs cancelled, will reorder if patient desaturates again. Patient confused which nurse says has been going on for the past few days. Objective - Vital Signs/Intake and Output Vital Signs (last 24 hours): Temp Pulse Resp BP Pulse Ox 98.4 F 92 H 20 152/72 H 91 L 10/13/16 23:31 10/14/16 02:20 10/13/16 23:31 10/13/16 23:31 10/13/16 23:31 Intake and Output: 10/14/16 10/14/16 06:59 18:59 Intake Total 1100 Balance 1100 - Medications Medications: Current Medications Acetaminophen (Tylenol 325mg Tab) 650 mg PO Q6 PRN PRN Reason: Pain, moderate (4-7) Last Admin: 10/09/16 23:41 Dose: 650 mg Albuterol Sulfate (Albuterol 0.083% Inhal Rosie (2.5 Mg/3 Ml) Ud) 2.5 mg INH RQ6 [facility] Last Admin: 10/14/16 01:18 Dose: Not Given Alprazolam (Xanax) 0.5 mg PO HS PRN PRN Reason: Anxiety Last Admin: 10/10/16 00:24 Dose: 0.5 mg Amiodarone HCl (Cordarone) 200 mg PO DAILY [facility] Last Admin: 10/13/16 12:52 Dose: 200 mg Amlodipine Besylate (Norvasc) 5 mg PO DAILY [facility] Last Admin: 10/13/16 12:55 Dose: Not Given Bisacodyl (Dulcolax) 5 mg PO BID [facility] Last Admin: 10/13/16 18:24 Dose: 5 mg Clonidine HCl (Catapres-Tts3 0.3 Mg/24 Hr) 1 patch TD QWK [facility] Last Admin: 10/10/16 09:54 Dose: 1 patch Enoxaparin Sodium (Lovenox) 40 mg SC DAILY [facility] Last Admin: 10/13/16 12:55 Dose: 40 mg Famotidine (Pepcid) 40 mg IVP Q12 [facility] Last Admin: 10/13/16 22:04 Dose: 40 mg Clindamycin Phosphate (Cleocin) 600 mg in 50 mls @ 100 mls/hr IVPB Q8H [facility] Last Admin: 10/14/16 08:33 Dose: 100 mls/hr Lactulose (Enulose) 20 gm PO HS [facility] Last Admin: 10/13/16 22:04 Dose: 20 gm Levothyroxine Sodium (Synthroid) 150 mcg PO DAILY@0630 [facility] Last Admin: 10/14/16 06:45 Dose: 150 mcg Losartan Potassium (Cozaar) 100 mg PO DAILY [facility] Last Admin: 10/13/16 12:54 Dose: 100 mg Mirtazapine (Remeron) 15 mg PO HS [facility] Last Admin: 10/13/16 22:05 Dose: 15 mg Ondansetron HCl (Zofran Inj) 4 mg IVP Q8 [facility] Last Admin: 10/14/16 06:45 Dose: 4 mg Raloxifene HCl (Evista) 60 mg PO DAILY [facility] Last Admin: 10/13/16 12:53 Dose: 60 mg Saccharomyces Boulardii (Florastor) 250 mg PO DAILY [facility] Last Admin: 10/13/16 12:55 Dose: 250 mg Sucralfate (Carafate Tab) 1 gm PO AC [facility] Last Admin: 10/14/16 06:45 Dose: 1 gm - Labs Labs: 10/14/16 07:56 10/14/16 07:56 - Constitutional Appears: Non-toxic, In Acute Distress - Head Exam Head Exam: ATRAUMATIC, NORMAL INSPECTION, NORMOCEPHALIC - Eye Exam Eye Exam: EOMI, Normal appearance, PERRL - Respiratory Exam Respiratory Exam: Accessory Muscle Use, Wheezes, Respiratory Distress - Cardiovascular Exam Cardiovascular Exam: REGULAR RHYTHM, RRR - Neurological Exam Neurological Exam: Altered
[2016-10-14] MEDS: Enoxaparin 40 mg Syringe SC SCH (12:04)
[2016-10-14] MEDS: Saccharomyces Boulardi 250 mg Cap PO SCH (12:04)
[2016-10-14] MEDS: Bisacodyl 5mg EC Tab PO SCH ×2 (12:04→17:19)
--- NOTE | 2016-10-14 15:52 | CP.PCM.PN ---
Subjective - Date & Time of Evaluation Date of Evaluation: 10/14/16 Time of Evaluation: 06:00 - Subjective Subjective: events noted desaturating no sputum c/s available blood c/s neg pulm on board will need ICU care Objective - Vital Signs/Intake and Output Vital Signs (last 24 hours): Temp Pulse Resp BP Pulse Ox 98.4 F 92 H 20 152/72 H 91 L 10/13/16 23:31 10/14/16 02:20 10/13/16 23:31 10/13/16 23:31 10/13/16 23:31 Intake and Output: 10/14/16 10/14/16 06:59 18:59 Intake Total 1100 Balance 1100 - Medications Medications: Current Medications Acetaminophen (Tylenol 325mg Tab) 650 mg PO Q6 PRN PRN Reason: Pain, moderate (4-7) Last Admin: 10/09/16 23:41 Dose: 650 mg Albuterol Sulfate (Albuterol 0.083% Inhal Rosie (2.5 Mg/3 Ml) Ud) 2.5 mg INH RQ6 [facility] Last Admin: 10/14/16 13:12 Dose: 2.5 mg Alprazolam (Xanax) 0.5 mg PO HS PRN PRN Reason: Anxiety Last Admin: 10/10/16 00:24 Dose: 0.5 mg Amiodarone HCl (Cordarone) 200 mg PO DAILY [facility] Last Admin: 10/14/16 12:04 Dose: 200 mg Amlodipine Besylate (Norvasc) 5 mg PO DAILY [facility] Last Admin: 10/14/16 12:04 Dose: 5 mg Bisacodyl (Dulcolax) 5 mg PO BID [facility] Last Admin: 10/14/16 12:04 Dose: 5 mg Clonidine HCl (Catapres-Tts3 0.3 Mg/24 Hr) 1 patch TD QWK [facility] Last Admin: 10/10/16 09:54 Dose: 1 patch Enoxaparin Sodium (Lovenox) 40 mg SC DAILY [facility] Last Admin: 10/14/16 12:04 Dose: 40 mg Famotidine (Pepcid) 40 mg IVP Q12 [facility] Last Admin: 10/14/16 12:04 Dose: 40 mg Clindamycin Phosphate (Cleocin) 600 mg in 50 mls @ 100 mls/hr IVPB Q8H [facility] Last Admin: 10/14/16 08:33 Dose: 100 mls/hr Lactulose (Enulose) 20 gm PO HS [facility] Last Admin: 10/13/16 22:04 Dose: 20 gm Levothyroxine Sodium (Synthroid) 150 mcg PO DAILY@0630 [facility] Last Admin: 10/14/16 06:45 Dose: 150 mcg Losartan Potassium (Cozaar) 100 mg PO DAILY [facility] Last Admin: 10/14/16 12:04 Dose: 100 mg Mirtazapine (Remeron) 15 mg PO HS [facility] Last Admin: 10/13/16 22:05 Dose: 15 mg Ondansetron HCl (Zofran Inj) 4 mg IVP Q8 [facility] Last Admin: 10/14/16 06:45 Dose: 4 mg Raloxifene HCl (Evista) 60 mg PO DAILY [facility] Last Admin: 10/14/16 12:04 Dose: 60 mg Saccharomyces Boulardii (Florastor) 250 mg PO DAILY [facility] Last Admin: 10/14/16 12:04 Dose: 250 mg Sucralfate (Carafate Tab) 1 gm PO AC [facility] Last Admin: 10/14/16 12:04 Dose: 1 gm - Labs Labs: 10/14/16 07:56 10/14/16 07:56 - Constitutional Appears: Cachectic, Chronically Ill - Eye Exam Eye Exam: absent: Scleral icterus - ENT Exam ENT Exam: Mucous Membranes Dry - Neck Exam Neck Exam: absent: Lymphadenopathy - Respiratory Exam Respiratory Exam: Decreased Breath Sounds - Cardiovascular Exam Cardiovascular Exam: REGULAR RHYTHM - GI/Abdominal Exam GI & Abdominal Exam: Distended Assessment and Plan (1) Dehydration Status: Resolved (2) Hypercalcemia Status: Acute (3) Weakness generalized Status: Chronic
[2016-10-14] MEDS ORDERED: Potassium Chloride 20 mEq ER Tab PO ONE (16:30)
--- NOTE | 2016-10-14 17:07 | CP.PCM.PN ---
Subjective - Date & Time of Evaluation Date of Evaluation: 10/14/16 Time of Evaluation: 17:07 - Subjective Subjective: Patient condition is somewhat worsening at this time. Spoke to the PMD. Patient is a poor candidate for further aggressive treatment. Currently on medications. IV fluid. Hypercalcemia, improving Objective - Vital Signs/Intake and Output Vital Signs (last 24 hours): Temp Pulse Resp BP Pulse Ox 97.6 F 81 20 133/66 100 10/14/16 16:00 10/14/16 16:00 10/14/16 16:00 10/14/16 16:00 10/14/16 16:00 Intake and Output: 10/14/16 10/14/16 06:59 18:59 Intake Total 1100 100 Balance 1100 100 - Medications Medications: Current Medications Acetaminophen (Tylenol 325mg Tab) 650 mg PO Q6 PRN PRN Reason: Pain, moderate (4-7) Last Admin: 10/09/16 23:41 Dose: 650 mg Albuterol Sulfate (Albuterol 0.083% Inhal Rosie (2.5 Mg/3 Ml) Ud) 2.5 mg INH RQ6 [facility] Last Admin: 10/14/16 13:12 Dose: 2.5 mg Alprazolam (Xanax) 0.5 mg PO HS PRN PRN Reason: Anxiety Last Admin: 10/10/16 00:24 Dose: 0.5 mg Amiodarone HCl (Cordarone) 200 mg PO DAILY [facility] Last Admin: 10/14/16 12:04 Dose: 200 mg Amlodipine Besylate (Norvasc) 5 mg PO DAILY [facility] Last Admin: 10/14/16 12:04 Dose: 5 mg Bisacodyl (Dulcolax) 5 mg PO BID [facility]S [facility] Last Admin: 10/14/16 12:04 Dose: 5 mg Clonidine HCl (Catapres-Tts3 0.3 Mg/24 Hr) 1 patch TD QWK [facility] Last Admin: 10/10/16 09:54 Dose: 1 patch Enoxaparin Sodium (Lovenox) 40 mg SC DAILY [facility] Last Admin: 10/14/16 12:04 Dose: 40 mg Famotidine (Pepcid) 40 mg IVP Q12 [facility] Last Admin: 10/14/16 12:04 Dose: 40 mg Tigecycline 100 mg/ Sodium (Chloride) 100 mls @ 100 mls/hr IVPB ONCE ONE Stop: 10/14/16 17:29 Tigecycline 50 mg/ Dextrose 100 mls @ 100 mls/hr IVPB Q12H [facility] 234 B[facility]S [facility] Lactulose (Enulose) 20 gm PO HS [facility]S [facility] Last Admin: 10/13/16 22:04 Dose: 20 gm Levothyroxine Sodium (Synthroid) 150 mcg PO DAILY@0630 [facility] Last Admin: 10/14/16 06:45 Dose: 150 mcg Losartan Potassium (Cozaar) 100 mg PO DAILY [facility] Last Admin: 10/14/16 12:04 Dose: 100 mg Mirtazapine (Remeron) 15 mg PO HS [facility] Last Admin: 10/13/16 22:05 Dose: 15 mg Ondansetron HCl (Zofran Inj) 4 mg IVP Q8 PRN PRN Reason: Nausea Raloxifene HCl (Evista) 60 mg PO DAILY [facility]S [facility] Last Admin: 10/14/16 12:04 Dose: 60 mg Saccharomyces Boulardii (Florastor) 250 mg PO DAILY [facility] Last Admin: 10/14/16 12:04 Dose: 250 mg Sucralfate (Carafate Tab) 1 gm PO AC [facility] Last Admin: 10/14/16 16:12 Dose: 1 gm - Labs Labs: 10/14/16 07:56 10/14/16 07:56
--- NOTE | 2016-10-14 17:18 | RAD ---
HISTORY: monitor pneumonia; increasing delirium; hypoxemia COMPARISON: 10/10/2016 FINDINGS: LUNGS: Prominent increased consolidative changes seen throughout the right upper to mid lung zone as well as throughout the left lung. Worsening small left pleural effusion. Diffuse increased interstitial lung markings. Bilateral hilar prominence. Biapical pleural thickening with upper lobe granulomatous changes. PLEURA: As above. CARDIOVASCULAR: Calcification at the aortic knob. OSSEOUS STRUCTURES: Degenerative changes. VISUALIZED UPPER ABDOMEN: Normal. OTHER FINDINGS: None. IMPRESSION: Prominent increased consolidative changes seen throughout the right upper to mid lung zone as well as throughout the left lung. Worsening small left pleural effusion. Post treatment interval followup may be helpful. Diffuse increased interstitial lung markings. Bilateral hilar prominence. Biapical pleural thickening with upper lobe granulomatous changes.
[2016-10-14 18:43] LABS: SQUAMOUS EPITHIAL 1 /hpf (0-5); URINE BACTERIA RARE (<OCC); URINE BILIRUBIN NEGATIVE (NEGATIVE); URINE BLOOD 1+ (NEGATIVE); URINE CLARITY Hazy (Clear); URINE COLOR Yellow (YELLOW); URINE GLUCOSE (UA) NORMAL (Normal); URINE LEUKOCYTE ESTERASE NEG Leu/uL (Negative); URINE NITRATE NEGATIVE (NEGATIVE); URINE PROTEIN 2+ mg/dL (NEGATIVE); URINE UROBILINOGEN NORMAL mg/dL (0.2-1.0)
--- NOTE | 2016-10-14 21:12 | CP.PCM.PN ---
Subjective - Date & Time of Evaluation Date of Evaluation: 10/14/16 Time of Evaluation: 21:06 - Subjective Subjective: Had spoken with pt's family again today, and pt was without blankets and on non- rebreather mask for more frequent hypoemic episodes. Clinically, pt appears more confused today, though still talking without evidence of respiratory distress. Pt appeared cyanotic this AM until O2 increased, but pt also has COPD. Asked for pulmonary re-evaluation. CBC also revealed increased WBC after lackluster response early in admission. Pt prob anergic and unable to mount a response. Will keep monitoring. Objective - Vital Signs/Intake and Output Vital Signs (last 24 hours): Temp Pulse Resp BP Pulse Ox 97.6 F 81 20 133/66 100 10/14/16 16:00 10/14/16 16:00 10/14/16 16:00 10/14/16 16:00 10/14/16 16:00 Intake and Output: 10/14/16 10/15/16 18:59 06:59 Intake Total 1350 Balance 1350 - Medications Medications: Current Medications Acetaminophen (Tylenol 325mg Tab) 650 mg PO Q6 PRN PRN Reason: Pain, moderate (4-7) Last Admin: 10/14/16 21:03 Dose: 650 mg Albuterol Sulfate (Albuterol 0.083% Inhal Rosie (2.5 Mg/3 Ml) Ud) 2.5 mg INH RQ6 [facility] Last Admin: 10/14/16 20:35 Dose: 2.5 mg Alprazolam (Xanax) 0.5 mg PO HS PRN PRN Reason: Anxiety Last Admin: 10/14/16 21:03 Dose: 0.5 mg Amiodarone HCl (Cordarone) 200 mg PO DAILY [facility] Last Admin: 10/14/16 12:04 Dose: 200 mg Amlodipine Besylate (Norvasc) 5 mg PO DAILY [facility] Last Admin: 10/14/16 12:04 Dose: 5 mg Bisacodyl (Dulcolax) 5 mg PO BID [facility] Last Admin: 10/14/16 17:19 Dose: Not Given Clonidine HCl (Catapres-Tts3 0.3 Mg/24 Hr) 1 patch TD QWK [facility] Last Admin: 10/10/16 09:54 Dose: 1 patch Enoxaparin Sodium (Lovenox) 40 mg SC DAILY [facility] Last Admin: 10/14/16 12:04 Dose: 40 mg Famotidine (Pepcid) 40 mg IVP Q12 [facility] Last Admin: 10/14/16 21:03 Dose: 40 mg Tigecycline 50 mg/ Dextrose 100 mls @ 100 mls/hr IVPB Q12H [facility] Lactulose (Enulose) 20 gm PO HS [facility] Last Admin: 10/14/16 21:03 Dose: 20 gm Levothyroxine Sodium (Synthroid) 150 mcg PO DAILY@0630 [facility] Last Admin: 10/14/16 06:45 Dose: 150 mcg Losartan Potassium (Cozaar) 100 mg PO DAILY [facility] Last Admin: 10/14/16 12:04 Dose: 100 mg Mirtazapine (Remeron) 15 mg PO HS [facility] Last Admin: 10/14/16 21:03 Dose: 15 mg Ondansetron HCl (Zofran Inj) 4 mg IVP Q8 PRN PRN Reason: Nausea Raloxifene HCl (Evista) 60 mg PO DAILY [facility] Last Admin: 10/14/16 12:04 Dose: 60 mg Saccharomyces Boulardii (Florastor) 250 mg PO DAILY [facility] Last Admin: 10/14/16 12:04 Dose: 250 mg Sucralfate (Carafate Tab) 1 gm PO AC [facility] Last Admin: 10/14/16 16:12 Dose: 1 gm - Labs Labs: 10/14/16 07:56 10/14/16 07:56 - Constitutional Appears: No Acute Distress, Confused, Cachectic, Chronically Ill - Head Exam Head Exam: NORMAL INSPECTION, NORMOCEPHALIC - Eye Exam Eye Exam: Normal appearance, PERRL Pupil Exam: NORMAL ACCOMODATION - ENT Exam ENT Exam: Mucous Membranes Moist, Normal Exam - Neck Exam Neck Exam: Normal Inspection - Respiratory Exam Respiratory Exam: Wheezes - Cardiovascular Exam Cardiovascular Exam: REGULAR RHYTHM - GI/Abdominal Exam GI & Abdominal Exam: Soft, Diminished Bowel Sounds - Rectal Exam Rectal Exam: Deferred - Extremities Exam Extremities Exam: Normal Inspection - Neurological Exam Neurological Exam: Alert Neuro motor strength exam: Left Upper Extremity: 3, Right Upper Extremity: 3, Left Lower Extremity: 2/1, Right Lower Extremity: 2/1 - Psychiatric Exam Psychiatric exam: Agitated - Skin Skin Exam: Normal Color Assessment and Plan (1) Myocardial infarction acute Status: Acute (2) Dehydration Status: Resolved (3) Pneumonia Assessment & Plan: worsening infiltrates with consolidative changes, accounting for increasing episodes of hypoxemia and cyanosis. IV abx changed today. Pt may need bipap if O2 desats continue. Status: Acute (4) Hypercalcemia Status: Acute (5) Weakness generalized Assessment & Plan: PT when medically stable. 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
[2016-10-14] MEDS: MethylPREDNISolone 40 mg Vial IVP SCH (23:26)
[2016-10-15] MEDS: Albuterol 0.083% Inhal Sol (2.5 mg/3 mL) UD INH SCH ×4 (01:14→19:58)
[2016-10-15] MEDS: Tigecycline 50 MG in Dextrose 5% In Water 100 ML IVPB SCH ×2 (06:07→19:00)
[2016-10-15] MEDS: Levothyroxine 150 MCG TAB PO SCH (06:08)
[2016-10-15] MEDS: Saccharomyces Boulardi 250 mg Cap PO SCH (10:20)
[2016-10-15] MEDS: MethylPREDNISolone 40 mg Vial IVP SCH ×2 (10:21→21:15)
[2016-10-15] MEDS: Bisacodyl 5mg EC Tab PO SCH ×2 (10:21→17:42)
[2016-10-15] MEDS: Enoxaparin 40 mg Syringe SC SCH (10:31)
[2016-10-15 11:26] LABS: ARTERIAL BLOOD GAS HCO3 21.2 mmol/L (21-28); ARTERIAL BLOOD GAS HEMOGLOBIN 10.7 g/dL (11.7-17.4); ARTERIAL BLOOD GAS O2 SAT 99.2 % (95-98); ARTERIAL BLOOD GAS PCO2 41 mm/Hg (35-45); ARTERIAL BLOOD GAS PH 7.32 (7.35-7.45); ARTERIAL BLOOD GAS PO2 97 mm/Hg (80-100); ARTERIAL BLOOD GAS TCO2 22.4 mmol/L (22-28)
--- NOTE | 2016-10-15 15:39 | CARD ---
APPROVED REPORT EKG Measurement Heart [id number] MD [id number] <Conclusion> Normal sinus rhythm Left axis deviation Nonspecific T wave abnormality Abnormal ECG
--- NOTE | 2016-10-15 15:40 | CARD ---
APPROVED REPORT EKG Measurement Heart [id number] <Conclusion> Normal sinus rhythm Left axis deviation Abnormal ECG
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
[2016-10-15] MEDS: Dextrose 5%/0.45% NS 1,000 ML IV SCH (19:09)
--- NOTE | 2016-10-15 22:03 | CP.PCM.PN ---
Subjective - Date & Time of Evaluation Date of Evaluation: 10/15/16 Time of Evaluation: 22:01 - Subjective Subjective: Patient today is using nonrebreather. Patient's daughter is at bedside. The daughter is extremely worried about her mother being exposed to very cold yet condition. It is causing her cold extremities. And also worsening the pneumonia as per the daughter. But patient's overall condition is worsening at this time. Nonrebreather. 100% FiO2, saturation is very low. Chest x-ray, increasingly mnemonic process noted, underlying CHF cannot be ruled out. Patient is a CAD. Hypercalcemia. Seen by oncologist. Overall prognosis is poor Objective - Vital Signs/Intake and Output Vital Signs (last 24 hours): Temp Pulse Resp BP Pulse Ox 98.2 F 77 18 159/72 H 93 L 10/15/16 16:00 10/15/16 16:00 10/15/16 16:00 10/15/16 16:00 10/15/16 16:00 - Medications Medications: Current Medications Acetaminophen (Tylenol 325mg Tab) 650 mg PO Q6 PRN PRN Reason: Pain, moderate (4-7) Last Admin: 10/14/16 21:03 Dose: 650 mg Albuterol Sulfate (Albuterol 0.083% Inhal Rosie (2.5 Mg/3 Ml) Ud) 2.5 mg INH RQ6 [facility] Last Admin: 10/15/16 19:58 Dose: 2.5 mg Alprazolam (Xanax) 0.5 mg PO HS PRN PRN Reason: Anxiety Last Admin: 10/14/16 21:03 Dose: 0.5 mg Amiodarone HCl (Cordarone) 200 mg PO DAILY [facility] Last Admin: 10/15/16 10:21 Dose: 200 mg Amlodipine Besylate (Norvasc) 5 mg PO DAILY [facility] Last Admin: 10/15/16 10:21 Dose: 5 mg Bisacodyl (Dulcolax) 5 mg PO BID [facility] Last Admin: 10/15/16 17:42 Dose: 5 mg Clonidine HCl (Catapres-Tts3 0.3 Mg/24 Hr) 1 patch TD QWK [facility] Last Admin: 10/10/16 09:54 Dose: 1 patch Enoxaparin Sodium (Lovenox) 40 mg SC DAILY [facility] Last Admin: 10/15/16 10:31 Dose: 40 mg Famotidine (Pepcid) 40 mg IVP Q12 [facility] Last Admin: 10/15/16 21:13 Dose: 40 mg Tigecycline 50 mg/ Dextrose 100 mls @ 100 mls/hr IVPB Q12H [facility] Last Admin: 10/15/16 19:00 Dose: 100 mls/hr Dextrose/Sodium Chloride (Dextrose 5%/0.45% Ns 1000 Ml) 1,000 mls @ 40 mls/hr IV .Q24H [facility] Last Admin: 10/15/16 19:09 Dose: 40 mls/hr Lactulose (Enulose) 20 gm PO HS [facility] Last Admin: 10/15/16 21:15 Dose: Not Given Levothyroxine Sodium (Synthroid) 150 mcg PO DAILY@0630 [facility] Last Admin: 10/15/16 06:08 Dose: 150 mcg Losartan Potassium (Cozaar) 100 mg PO DAILY [facility] Last Admin: 10/15/16 10:21 Dose: 100 mg Methylprednisolone (Solu-Medrol) 40 mg IVP Q12 [facility] Last Admin: 10/15/16 21:15 Dose: 40 mg Mirtazapine (Remeron) 15 mg PO HS [facility] Last Admin: 10/15/16 21:14 Dose: 15 mg Ondansetron HCl (Zofran Inj) 4 mg IVP Q8 PRN PRN Reason: Nausea Raloxifene HCl (Evista) 60 mg PO DAILY [facility] Last Admin: 10/15/16 10:21 Dose: 60 mg Saccharomyces Boulardii (Florastor) 250 mg PO DAILY [facility] Last Admin: 10/15/16 10:20 Dose: 250 mg Sucralfate (Carafate Tab) 1 gm PO AC [facility] Last Admin: 10/15/16 17:28 Dose: 1 gm - Labs Labs: 10/14/16 07:56 10/14/16 07:56
--- NOTE | 2016-10-15 23:45 | CP.PCM.PN ---
Subjective - Date & Time of Evaluation Date of Evaluation: 10/15/16 Time of Evaluation: 16:10 - Subjective Subjective: Pt seen at bedside. Resting comfortably on non-rebreathe, lying flat in preparation for clean up by PCT. Pt had been having increasing hypoxemic episodes and requiring increasing O2 concentrations, such that at this point, pt reqiures non-rebreather mask with 100% FiO2. Search for a cause in the patient' condition revealed worsening pneumonia and possible pulmonary edema 2ndry to fluid overload. Pt diuresed immediately and wheezing decreased Objective - Vital Signs/Intake and Output Vital Signs (last 24 hours): Temp Pulse Resp BP Pulse Ox 98 F 72 20 157/78 H 97 10/15/16 23:17 10/15/16 23:17 10/15/16 23:17 10/15/16 23:17 10/15/16 23:17 - Medications Medications: Current Medications Acetaminophen (Tylenol 325mg Tab) 650 mg PO Q6 PRN PRN Reason: Pain, moderate (4-7) Last Admin: 10/14/16 21:03 Dose: 650 mg Albuterol Sulfate (Albuterol 0.083% Inhal Rosie (2.5 Mg/3 Ml) Ud) 2.5 mg INH RQ6 [facility] Last Admin: 10/15/16 19:58 Dose: 2.5 mg Alprazolam (Xanax) 0.5 mg PO HS PRN PRN Reason: Anxiety Last Admin: 10/14/16 21:03 Dose: 0.5 mg Amiodarone HCl (Cordarone) 200 mg PO DAILY [facility] Last Admin: 10/15/16 10:21 Dose: 200 mg Amlodipine Besylate (Norvasc) 5 mg PO DAILY [facility] Last Admin: 10/15/16 10:21 Dose: 5 mg Bisacodyl (Dulcolax) 5 mg PO BID [facility] Last Admin: 10/15/16 17:42 Dose: 5 mg Clonidine HCl (Catapres-Tts3 0.3 Mg/24 Hr) 1 patch TD QWK [facility] Last Admin: 10/10/16 09:54 Dose: 1 patch Enoxaparin Sodium (Lovenox) 40 mg SC DAILY [facility] Last Admin: 10/15/16 10:31 Dose: 40 mg Famotidine (Pepcid) 40 mg IVP Q12 [facility] Last Admin: 10/15/16 21:13 Dose: 40 mg Tigecycline 50 mg/ Dextrose 100 mls @ 100 mls/hr IVPB Q12H [facility] Last Admin: 10/15/16 19:00 Dose: 100 mls/hr Dextrose/Sodium Chloride (Dextrose 5%/0.45% Ns 1000 Ml) 1,000 mls @ 40 mls/hr IV .Q24H [facility] Last Admin: 10/15/16 19:09 Dose: 40 mls/hr Lactulose (Enulose) 20 gm PO [facility] Last Admin: 10/15/16 21:15 Dose: Not Given Levothyroxine Sodium (Synthroid) 150 mcg PO DAILY@0630 [facility] Last Admin: 10/15/16 06:08 Dose: 150 mcg Losartan Potassium (Cozaar) 100 mg PO DAILY [facility] Last Admin: 10/15/16 10:21 Dose: 100 mg Methylprednisolone (Solu-Medrol) 40 mg IVP Q12 [facility] Last Admin: 10/15/16 21:15 Dose: 40 mg Mirtazapine (Remeron) 15 mg PO [facility] Last Admin: 10/15/16 21:14 Dose: 15 mg Ondansetron HCl (Zofran Inj) 4 mg IVP Q8 PRN PRN Reason: Nausea Raloxifene HCl (Evista) 60 mg PO DAILY [facility] Last Admin: 10/15/16 10:21 Dose: 60 mg Saccharomyces Boulardii (Florastor) 250 mg PO DAILY [facility] Last Admin: 10/15/16 10:20 Dose: 250 mg Sucralfate (Carafate Tab) 1 gm PO [facility] Last Admin: 10/15/16 17:28 Dose: 1 gm - Labs Labs: 10/14/16 07:56 10/14/16 07:56 - Constitutional Appears: No Acute Distress, Combative, Agitated (at times, not during visit), Confused - Head Exam Head Exam: NORMAL INSPECTION - Eye Exam Eye Exam: Normal appearance, PERRL Pupil Exam: NORMAL ACCOMODATION - ENT Exam ENT Exam: Mucous Membranes Moist - Neck Exam Neck Exam: Normal Inspection - Respiratory Exam Respiratory Exam: Decreased Breath Sounds - Cardiovascular Exam Cardiovascular Exam: Tachycardia, REGULAR RHYTHM - GI/Abdominal Exam GI & Abdominal Exam: Diminished Bowel Sounds - Back Exam Back Exam: NORMAL INSPECTION - Neurological Exam Neurological Exam: absent: Abnormal Gait, Alert, Altered, Awake, CN II-XII Intact, Motor Sensory Deficit, Normal Gait, Oriented x3, Reflexes Normal - Psychiatric Exam Psychiatric exam: Agitated (deliriious) - Skin Skin Exam: Dry, Intact Additional comments: cool to touch es at digits and toes Assessment and Plan (1) Pneumonia Assessment & Plan: resurgence of this problem manifesting as hypoxemia. Abx changed, will monitor. Sputum GS and Ctx if sputum able to be expectorated or induced. Status: Acute (2) Myocardial infarction acute Status: Acute (3) Weakness generalized Status: Chronic (4) Hypercalcemia Assessment & Plan: improved with 1 dose of bisphosphonate. Next dose due 10/18/16 Status: Acute (5) Delirium due to another medical condition Assessment & Plan: induced by pneumonia and comorbid illnesses. Will hopefully resolve if pt's condition improves. 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 Pt misinterprets tingling and reperfusion as fomites crawling in her skin and attempts to scratch them. Need to educate pt on normal sensations and not succumb to her delirium. Status: Acute
[2016-10-16] MEDS: Albuterol 0.083% Inhal Sol (2.5 mg/3 mL) UD INH SCH ×5 (02:08→20:07)
[2016-10-16] MEDS: Tigecycline 50 MG in Dextrose 5% In Water 100 ML IVPB SCH ×2 (06:15→18:58)
[2016-10-16] MEDS: Levothyroxine 150 MCG TAB PO SCH (06:55)
[2016-10-16 08:19] LABS: BASO # 0.1 K/uL (0.0-0.2); BASO % 0.3 % (0.0-2.0); HEMOGLOBIN 11.4 g/dL (11.0-16.0); LYMPH # 1.2 K/uL (1.0-4.3); LYMPH % 5.2 % (20.0-40.0); MEAN CELL VOLUME 93.9 fL (81.0-99.0); MEAN CORPUSCULAR HEMOGLOBIN 29.6 pg (27.0-31.0); MEAN CORPUSCULAR HGB CONC 31.5 g/dL (33.0-37.0); MEAN PLATELET VOLUME 10.6 fL (7.2-11.7); MONO % 4.5 % (0.0-10.0); NEUT # 20.3 K/uL (1.8-7.0); PLATELET COUNT 290 K/uL (130-400); RBC 3.87 Mil/uL (3.80-5.20); RED CELL DISTRIBUTION WIDTH 14.5 % (11.5-14.5); WHITE BLOOD COUNT 22.6 K/uL (4.8-10.8)
[2016-10-16 08:55] LABS: CALCIUM 10.8 mg/dl (8.6-10.4)
[2016-10-16] MEDS: Enoxaparin 40 mg Syringe SC SCH (10:40)
[2016-10-16] MEDS: MethylPREDNISolone 40 mg Vial IVP SCH ×2 (10:41→22:00)
[2016-10-16] MEDS: Saccharomyces Boulardi 250 mg Cap PO SCH (10:42)
[2016-10-16] MEDS: Bisacodyl 5mg EC Tab PO SCH ×2 (10:42→18:58)
[2016-10-16 11:03] LABS: BANDS 2 % (0-2); BURR CELLS SLIGHT; LARGE PLATELETS PRESENT; LYMPHOCYTE 3 % (20-40); METAMYELOCYTE 1 % (0-0); MONOCYTE 5 % (0-10); NEUTROPHIL 89 % (50-75); PLATELET ESTIMATE NORMAL (NORMAL); TOTAL CELLS COUNTED 100
--- NOTE | 2016-10-16 11:27 | CP.PCM.PN ---
Subjective - Date & Time of Evaluation Date of Evaluation: 10/16/16 Time of Evaluation: 11:00 - Subjective Subjective: no new complaints. Objective - Vital Signs/Intake and Output Vital Signs (last 24 hours): Temp Pulse Resp BP Pulse Ox 97.6 F 72 19 143/74 100 10/16/16 09:47 10/16/16 09:47 10/16/16 09:47 10/16/16 09:47 10/16/16 09:47 - Medications Medications: Current Medications Acetaminophen (Tylenol 325mg Tab) 650 mg PO Q6 PRN PRN Reason: Pain, moderate (4-7) Last Admin: 10/14/16 21:03 Dose: 650 mg Albuterol Sulfate (Albuterol 0.083% Inhal Rosie (2.5 Mg/3 Ml) Ud) 2.5 mg INH RQ6 [facility] Last Admin: 10/16/16 07:59 Dose: 2.5 mg Alprazolam (Xanax) 0.5 mg PO HS PRN PRN Reason: Anxiety Last Admin: 10/14/16 21:03 Dose: 0.5 mg Amiodarone HCl (Cordarone) 200 mg PO DAILY [facility] Last Admin: 10/16/16 10:42 Dose: 200 mg Amlodipine Besylate (Norvasc) 5 mg PO DAILY [facility] Last Admin: 10/16/16 10:42 Dose: 5 mg Bisacodyl (Dulcolax) 5 mg PO BID [facility] Last Admin: 10/16/16 10:42 Dose: 5 mg Clonidine HCl (Catapres-Tts3 0.3 Mg/24 Hr) 1 patch TD QWK [facility] Last Admin: 10/10/16 09:54 Dose: 1 patch Enoxaparin Sodium (Lovenox) 40 mg SC DAILY [facility] Last Admin: 10/16/16 10:40 Dose: 40 mg Famotidine (Pepcid) 40 mg IVP Q12 [facility] Last Admin: 10/16/16 10:41 Dose: 40 mg Tigecycline 50 mg/ Dextrose 100 mls @ 100 mls/hr IVPB Q12H [facility] Last Admin: 10/16/16 06:15 Dose: 100 mls/hr Dextrose/Sodium Chloride (Dextrose 5%/0.45% Ns 1000 Ml) 1,000 mls @ 40 mls/hr IV .Q24H [facility] Last Admin: 10/15/16 19:09 Dose: 40 mls/hr Lactulose (Enulose) 20 gm PO HS [facility] Last Admin: 10/15/16 21:15 Dose: Not Given Levothyroxine Sodium (Synthroid) 150 mcg PO DAILY@0630 [facility] Last Admin: 10/16/16 06:55 Dose: 150 mcg Losartan Potassium (Cozaar) 100 mg PO DAILY [facility] Last Admin: 10/16/16 10:42 Dose: 100 mg Methylprednisolone (Solu-Medrol) 40 mg IVP Q12 [facility] Last Admin: 10/16/16 10:41 Dose: 40 mg Mirtazapine (Remeron) 15 mg PO HS [facility] Last Admin: 10/15/16 21:14 Dose: 15 mg Ondansetron HCl (Zofran Inj) 4 mg IVP Q8 PRN PRN Reason: Nausea Raloxifene HCl (Evista) 60 mg PO DAILY [facility] Last Admin: 10/16/16 10:42 Dose: 60 mg Saccharomyces Boulardii (Florastor) 250 mg PO DAILY [facility] Last Admin: 10/16/16 10:42 Dose: 250 mg Sucralfate (Carafate Tab) 1 gm PO AC [facility] Last Admin: 10/16/16 06:55 Dose: 1 gm - Labs Labs: 10/16/16 08:08 10/16/16 08:08 - Constitutional Appears: Chronically Ill - Head Exam Head Exam: NORMAL INSPECTION - Eye Exam Eye Exam: Normal appearance - ENT Exam ENT Exam: Mucous Membranes Moist - Neck Exam Neck Exam: Full ROM - Respiratory Exam Respiratory Exam: Decreased Breath Sounds - Cardiovascular Exam Cardiovascular Exam: REGULAR RHYTHM - GI/Abdominal Exam GI & Abdominal Exam: Normal Bowel Sounds - Rectal Exam Rectal Exam: Deferred - Extremities Exam Extremities Exam: Full ROM - Back Exam Back Exam: NORMAL INSPECTION - Neurological Exam Neurological Exam: Alert - Psychiatric Exam Psychiatric exam: Normal Mood - Skin Skin Exam: Dry Assessment and Plan (1) Paroxysmal atrial fibrillation Assessment & Plan: continue amiodarone Status: Acute (2) COPD (chronic obstructive pulmonary disease) Assessment & Plan: pulmonary follow up Status: Acute (3) NSTEMI (non-ST elevated myocardial infarction) Assessment & Plan: conservative therapy. high risk for coronary intervention Status: Acute
--- NOTE | 2016-10-16 12:11 | RAD ---
HISTORY: monitor pneumonia and L pleural effusion COMPARISON: 10/14/2016 FINDINGS: LUNGS: Prominent diffuse worsening confluent air space opacification/ consolidation throughout both lungs with small bilateral pleural effusions. Biapical pleural thickening with upper lobe granulomatous changes. PLEURA: As above. CARDIOVASCULAR: Cardiomegaly. Calcification at the aortic knob. OSSEOUS STRUCTURES: Degenerative changes in the spine and shoulders. VISUALIZED UPPER ABDOMEN: Normal. OTHER FINDINGS: None. IMPRESSION: Prominent diffuse worsening confluent air space opacification/ consolidation throughout both lungs with small bilateral pleural effusions. Biapical pleural thickening with upper lobe granulomatous changes.
--- NOTE | 2016-10-16 15:55 | CP.PCM.PN ---
Subjective - Date & Time of Evaluation Date of Evaluation: 10/16/16 Time of Evaluation: 15:49 - Subjective Subjective: Pt seen today at bedside. Got a message from pt's daughter regarding thoughts of maybe taking her mother out of the hospital should she continue to take a turn for the worse. Had spoken with both pt and daughter that pt's pneumonia had worsened and that it may take a while before she is back to her old self, what ever that may be. Pt has had multiple admissions for very different reasons and has never quite recovered from any hopsitalization. > Pt's WBC elevated, but pt was wheezing up a storm before and needed to be > Pt seen and examined at bedside. Pt had eyes closed, but opened it readily when I approached the bed. For as bad as her CXR is, it is amazing that she is able to talk! Objective - Vital Signs/Intake and Output Vital Signs (last 24 hours): Temp Pulse Resp BP Pulse Ox 97.6 F 72 19 143/74 100 10/16/16 09:47 10/16/16 09:47 10/16/16 09:47 10/16/16 09:47 10/16/16 09:47 - Medications Medications: Current Medications Acetaminophen (Tylenol 325mg Tab) 650 mg PO Q6 PRN PRN Reason: Pain, moderate (4-7) Last Admin: 10/14/16 21:03 Dose: 650 mg Albuterol Sulfate (Albuterol 0.083% Inhal Rosie (2.5 Mg/3 Ml) Ud) 2.5 mg INH RQ6 [facility] Last Admin: 10/16/16 13:40 Dose: 2.5 mg Alprazolam (Xanax) 0.5 mg PO HS PRN PRN Reason: Anxiety Last Admin: 10/14/16 21:03 Dose: 0.5 mg Amiodarone HCl (Cordarone) 200 mg PO DAILY [facility] Last Admin: 10/16/16 10:42 Dose: 200 mg Amlodipine Besylate (Norvasc) 5 mg PO DAILY [facility] Last Admin: 10/16/16 10:42 Dose: 5 mg Bisacodyl (Dulcolax) 5 mg PO BID [facility] Last Admin: 10/16/16 10:42 Dose: 5 mg Clonidine HCl (Catapres-Tts3 0.3 Mg/24 Hr) 1 patch TD QWK [facility] Last Admin: 10/10/16 09:54 Dose: 1 patch Enoxaparin Sodium (Lovenox) 40 mg SC DAILY [facility] Last Admin: 10/16/16 10:40 Dose: 40 mg Famotidine (Pepcid) 40 mg IVP Q12 [facility] Last Admin: 10/16/16 10:41 Dose: 40 mg Furosemide (Lasix) 40 mg IVP DAILY [facility] Tigecycline 50 mg/ Dextrose 100 mls @ 100 mls/hr IVPB Q12H [facility] Last Admin: 10/16/16 06:15 Dose: 100 mls/hr Dextrose/Sodium Chloride (Dextrose 5%/0.45% Ns 1000 Ml) 1,000 mls @ 40 mls/hr IV .Q24H [facility] Last Admin: 10/15/16 19:09 Dose: 40 mls/hr Lactulose (Enulose) 20 gm PO HS [facility] Last Admin: 10/15/16 21:15 Dose: Not Given Levothyroxine Sodium (Synthroid) 150 mcg PO DAILY@0630 [facility] Last Admin: 10/16/16 06:55 Dose: 150 mcg Losartan Potassium (Cozaar) 100 mg PO DAILY [facility] Last Admin: 10/16/16 10:42 Dose: 100 mg Methylprednisolone (Solu-Medrol) 40 mg IVP Q12 [facility] Last Admin: 10/16/16 10:41 Dose: 40 mg Mirtazapine (Remeron) 15 mg PO HS [facility] Last Admin: 10/15/16 21:14 Dose: 15 mg Ondansetron HCl (Zofran Inj) 4 mg IVP Q8 PRN PRN Reason: Nausea Raloxifene HCl (Evista) 60 mg PO DAILY [facility] Last Admin: 10/16/16 10:42 Dose: 60 mg Saccharomyces Boulardii (Florastor) 250 mg PO DAILY [facility] Last Admin: 10/16/16 10:42 Dose: 250 mg Sucralfate (Carafate Tab) 1 gm PO AC [facility] Last Admin: 10/16/16 13:06 Dose: 1 gm - Labs Labs: 10/16/16 08:08 10/16/16 08:08 - Constitutional Appears: No Acute Distress - Head Exam Head Exam: ATRAUMATIC, NORMAL INSPECTION, NORMOCEPHALIC - Eye Exam Eye Exam: Normal appearance Pupil Exam: NORMAL ACCOMODATION - ENT Exam ENT Exam: Normal Exam - Neck Exam Neck Exam: Full ROM, Normal Inspection - Respiratory Exam Respiratory Exam: Clear to Ausculation Bilateral Additional comments: after prolonged conversation for about 1/2 hr, pt started speaking in phrases - Cardiovascular Exam Cardiovascular Exam: REGULAR RHYTHM - GI/Abdominal Exam GI & Abdominal Exam: Diminished Bowel Sounds - Rectal Exam Rectal Exam: Deferred - Extremities Exam Extremities Exam: Normal Inspection (with some muscle wasting) - Back Exam Back Exam: NORMAL INSPECTION - Neurological Exam Neurological Exam: Alert, Oriented x3 (oriented to self and place but not time) Neuro motor strength exam: Left Upper Extremity: 3, Right Upper Extremity: 3, Left Lower Extremity: 2/1, Right Lower Extremity: 2/1 - Psychiatric Exam Psychiatric exam: Normal Affect, Normal Mood - Skin Skin Exam: Normal Color, Warm Assessment and Plan (1) Pneumonia Assessment & Plan: take it 1 day at a time Status: Acute (2) Myocardial infarction acute Assessment & Plan: stable, no chest pain Status: Acute (3) Weakness generalized Assessment & Plan: will need extensive PT if she gets through this. Status: Chronic (4) Hypercalcemia Assessment & Plan: calcium continues to drop after bisphosphonate administration Status: Acute (5) Delirium due to another medical condition Assessment & Plan: may even be doing this on purpose pretending to be delirious. 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
[2016-10-16] MEDS ORDERED: Acetylcysteine 20% Inhal Soln (4ml) INH STA (16:23)
--- NOTE | 2016-10-16 16:34 | CP.PCM.PN ---
Subjective - Date & Time of Evaluation Date of Evaluation: 10/16/16 Time of Evaluation: 16:33 - Subjective Subjective: Pt seen and examined at bedside. Pt had eyes closed, but opened it readily when I approached the bed. For as bad as her CXR is, it is amazing that she is able to talk! Objective - Vital Signs/Intake and Output Vital Signs (last 24 hours): Temp Pulse Resp BP Pulse Ox 97.6 F 72 19 147/75 100 10/16/16 09:47 10/16/16 09:47 10/16/16 09:47 10/16/16 15:53 10/16/16 09:47 - Medications Medications: Current Medications Acetaminophen (Tylenol 325mg Tab) 650 mg PO Q6 PRN PRN Reason: Pain, moderate (4-7) Last Admin: 10/14/16 21:03 Dose: 650 mg Albuterol Sulfate (Albuterol 0.083% Inhal Rosie (2.5 Mg/3 Ml) Ud) 2.5 mg INH RQ6 [facility] Last Admin: 10/16/16 13:40 Dose: 2.5 mg Albuterol/Ipratropium (Duoneb 3 Mg/0.5 Mg (3 Ml) Ud) 3 ml INH RQ6 [facility] Alprazolam (Xanax) 0.5 mg PO HS PRN PRN Reason: Anxiety Last Admin: 10/14/16 21:03 Dose: 0.5 mg Amiodarone HCl (Cordarone) 200 mg PO DAILY [facility] Last Admin: 10/16/16 10:42 Dose: 200 mg Amlodipine Besylate (Norvasc) 5 mg PO DAILY [facility] Last Admin: 10/16/16 10:42 Dose: 5 mg Bisacodyl (Dulcolax) 5 mg PO BID [facility] Last Admin: 10/16/16 10:42 Dose: 5 mg Clonidine HCl (Catapres-Tts3 0.3 Mg/24 Hr) 1 patch TD QWK [facility] Last Admin: 10/10/16 09:54 Dose: 1 patch Enoxaparin Sodium (Lovenox) 40 mg SC DAILY [facility] Last Admin: 10/16/16 10:40 Dose: 40 mg Famotidine (Pepcid) 40 mg IVP Q12 [facility] Last Admin: 10/16/16 10:41 Dose: 40 mg Furosemide (Lasix) 40 mg IVP DAILY [facility] Last Admin: 10/16/16 15:53 Dose: 40 mg Tigecycline 50 mg/ Dextrose 100 mls @ 100 mls/hr IVPB Q12H [facility] Last Admin: 10/16/16 06:15 Dose: 100 mls/hr Dextrose/Sodium Chloride (Dextrose 5%/0.45% Ns 1000 Ml) 1,000 mls @ 40 mls/hr IV .Q24H [facility] Last Admin: 10/15/16 19:09 Dose: 40 mls/hr Lactulose (Enulose) 20 gm PO HS [facility] Last Admin: 10/15/16 21:15 Dose: Not Given Levothyroxine Sodium (Synthroid) 150 mcg PO DAILY@0630 [facility] Last Admin: 10/16/16 06:55 Dose: 150 mcg Losartan Potassium (Cozaar) 100 mg PO DAILY [facility] Last Admin: 10/16/16 10:42 Dose: 100 mg Methylprednisolone (Solu-Medrol) 40 mg IVP Q12 [facility] Last Admin: 10/16/16 10:41 Dose: 40 mg Mirtazapine (Remeron) 15 mg PO HS [facility] Last Admin: 10/15/16 21:14 Dose: 15 mg Ondansetron HCl (Zofran Inj) 4 mg IVP Q8 PRN PRN Reason: Nausea Raloxifene HCl (Evista) 60 mg PO DAILY [facility] Last Admin: 10/16/16 10:42 Dose: 60 mg Saccharomyces Boulardii (Florastor) 250 mg PO DAILY [facility] Last Admin: 10/16/16 10:42 Dose: 250 mg Sucralfate (Carafate Tab) 1 gm PO AC [facility] Last Admin: 10/16/16 13:06 Dose: 1 gm - Labs Labs: 10/16/16 08:08 10/16/16 08:08 Assessment and Plan (1) Pneumonia Status: Acute (2) Myocardial infarction acute Status: Acute (3) Weakness generalized Status: Chronic (4) Hypercalcemia Status: Acute (5) Delirium due to another medical condition Status: Acute (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
[2016-10-16] MEDS: Dextrose 5%/0.45% NS 1,000 ML IV SCH (21:06)
--- NOTE | 2016-10-16 22:37 | CP.PCM.PN ---
Subjective - Date & Time of Evaluation Date of Evaluation: 10/16/16 Time of Evaluation: 22:37 - Subjective Subjective: The patient's family at bedside. Currently on nonrebreather. Awake and responding. But confused Vital signs reviewed No neck vein distention noted Diffuse bilateral rales noted CVS regular heart sound, no murmur noted Abdomen soft, nontender. Extremities no pedal edema [employer] alert awake oriented 3, no functional neurological deficit Assessment and recommendation: 81-year-old female now admitted with pneumonia. Bilateral infiltrate. Hypercalcemia. Workup is ongoing to rule out malignancy. Oncology follow-up. Objective - Vital Signs/Intake and Output Vital Signs (last 24 hours): Temp Pulse Resp BP Pulse Ox 97.7 F 76 20 132/70 100 10/16/16 17:21 10/16/16 17:21 10/16/16 17:21 10/16/16 17:21 10/16/16 17:21 Intake and Output: 10/16/16 10/17/16 18:59 06:59 Intake Total 720 Balance 720 - Medications Medications: Current Medications Acetaminophen (Tylenol 325mg Tab) 650 mg PO Q6 PRN PRN Reason: Pain, moderate (4-7) Last Admin: 10/14/16 21:03 Dose: 650 mg Albuterol Sulfate (Albuterol 0.083% Inhal Rosie (2.5 Mg/3 Ml) Ud) 2.5 mg INH RQ6 [facility] Last Admin: 10/16/16 20:07 Dose: 2.5 mg Albuterol/Ipratropium (Duoneb 3 Mg/0.5 Mg (3 Ml) Ud) 3 ml INH RQ6 [facility] Alprazolam (Xanax) 0.5 mg PO HS PRN PRN Reason: Anxiety Last Admin: 10/14/16 21:03 Dose: 0.5 mg Amiodarone HCl (Cordarone) 200 mg PO DAILY [facility] Last Admin: 10/16/16 10:42 Dose: 200 mg Amlodipine Besylate (Norvasc) 5 mg PO DAILY [facility] Last Admin: 10/16/16 10:42 Dose: 5 mg Bisacodyl (Dulcolax) 5 mg PO BID [facility] Last Admin: 10/16/16 18:58 Dose: 5 mg Clonidine HCl (Catapres-Tts3 0.3 Mg/24 Hr) 1 patch TD QWK [facility] Last Admin: 10/10/16 09:54 Dose: 1 patch Enoxaparin Sodium (Lovenox) 40 mg SC DAILY [facility] Last Admin: 10/16/16 10:40 Dose: 40 mg Famotidine (Pepcid) 40 mg IVP Q12 [facility] Last Admin: 10/16/16 21:05 Dose: 40 mg Furosemide (Lasix) 40 mg IVP DAILY [facility] Last Admin: 10/16/16 15:53 Dose: 40 mg Tigecycline 50 mg/ Dextrose 100 mls @ 100 mls/hr IVPB Q12H [facility] Last Admin: 10/16/16 18:58 Dose: 100 mls/hr Dextrose/Sodium Chloride (Dextrose 5%/0.45% Ns 1000 Ml) 1,000 mls @ 40 mls/hr IV .Q24H [facility] Last Admin: 10/16/16 21:06 Dose: 40 mls/hr Lactulose (Enulose) 20 gm PO HS [facility] Last Admin: 10/16/16 21:04 Dose: 20 gm Levothyroxine Sodium (Synthroid) 150 mcg PO DAILY@0630 [facility] Last Admin: 10/16/16 06:55 Dose: 150 mcg Losartan Potassium (Cozaar) 100 mg PO DAILY [facility] Last Admin: 10/16/16 10:42 Dose: 100 mg Methylprednisolone (Solu-Medrol) 40 mg IVP Q12 [facility] Last Admin: 10/16/16 10:41 Dose: 40 mg Mirtazapine (Remeron) 15 mg PO HS [facility] Last Admin: 10/16/16 21:08 Dose: 15 mg Ondansetron HCl (Zofran Inj) 4 mg IVP Q8 PRN PRN Reason: Nausea Raloxifene HCl (Evista) 60 mg PO DAILY [facility] Last Admin: 10/16/16 10:42 Dose: 60 mg Saccharomyces Boulardii (Florastor) 250 mg PO DAILY [facility] Last Admin: 10/16/16 10:42 Dose: 250 mg Sucralfate (Carafate Tab) 1 gm PO AC [facility] Last Admin: 10/16/16 18:58 Dose: 1 gm - Labs Labs: 10/16/16 08:08 10/16/16 08:08
[2016-10-17] MEDS: Tigecycline 50 MG in Dextrose 5% In Water 100 ML IVPB SCH (05:09)
[2016-10-17] MEDS: Levothyroxine 150 MCG TAB PO SCH (06:10)
[2016-10-17 08:42] LABS: EOS # 0.1 K/uL (0.0-0.7); EOS % 0.3 % (0.0-4.0); HEMOGLOBIN 11.8 g/dL (11.0-16.0); LYMPH # 1.5 K/uL (1.0-4.3); LYMPH % 7.3 % (20.0-40.0); MEAN CELL VOLUME 92.9 fL (81.0-99.0); MEAN CORPUSCULAR HEMOGLOBIN 29.4 pg (27.0-31.0); MEAN CORPUSCULAR HGB CONC 31.6 g/dL (33.0-37.0); MEAN PLATELET VOLUME 10.7 fL (7.2-11.7); MONO # 1.8 K/uL (0.0-0.8); MONO % 8.8 % (0.0-10.0); NEUT # 17.3 K/uL (1.8-7.0); NEUT % 83.6 % (50.0-75.0); PLATELET COUNT 295 K/uL (130-400); RBC 4.01 Mil/uL (3.80-5.20); RED CELL DISTRIBUTION WIDTH 14.2 % (11.5-14.5); WHITE BLOOD COUNT 20.7 K/uL (4.8-10.8)
[2016-10-17 08:54] LABS: CALCIUM 9.4 mg/dl (8.6-10.4)
[2016-10-17 09:28] LABS: LYMPHOCYTE 6 % (20-40); MONOCYTE 6 % (0-10); NEUTROPHIL 88 % (50-75); TOTAL CELLS COUNTED 100
[2016-10-17 09:29] LABS: PLATELET ESTIMATE NORMAL (NORMAL)
[2016-10-17 09:31] LABS: HYPOCHROMIC SLIGHT; POLYCHROMIC SLIGHT
[2016-10-17 09:32] LABS: OVALOCYTES SLIGHT
[2016-10-17] MEDS: Bisacodyl 5mg EC Tab PO SCH ×2 (11:09→17:10)
[2016-10-17] MEDS: Saccharomyces Boulardi 250 mg Cap PO SCH (11:37)
[2016-10-17] MEDS: MethylPREDNISolone 40 mg Vial IVP SCH ×2 (11:37→21:30)
[2016-10-17] MEDS: Enoxaparin 40 mg Syringe SC SCH (11:38)
--- NOTE | 2016-10-17 15:00 | CP.PCM.PN ---
Subjective - Date & Time of Evaluation Date of Evaluation: 10/17/16 Time of Evaluation: 09:00 - Subjective Subjective: weak and bedridden on vm non rebreather lethargic nad possible lung ca/ paraneoplastic syndrome and or bone mets pneumonia being treated tb unlikely - neg quantiferon Objective - Vital Signs/Intake and Output Vital Signs (last 24 hours): Temp Pulse Resp BP Pulse Ox 97.6 F 92 H 20 140/66 100 10/17/16 04:25 10/17/16 08:00 10/17/16 04:25 10/17/16 11:41 10/17/16 04:25 Intake and Output: 10/17/16 10/17/16 06:59 18:59 Intake Total 720 420 Balance 720 420 - Medications Medications: Current Medications Acetaminophen (Tylenol 325mg Tab) 650 mg PO Q6 PRN PRN Reason: Pain, moderate (4-7) Last Admin: 10/14/16 21:03 Dose: 650 mg Acetylcysteine (Acetylcysteine 20%) 4 ml INH Q6H [facility] Albuterol Sulfate (Albuterol 0.083% Inhal Rosie (2.5 Mg/3 Ml) Ud) 2.5 mg INH RQ6 [facility] Last Admin: 10/16/16 20:07 Dose: 2.5 mg Albuterol/Ipratropium (Duoneb 3 Mg/0.5 Mg (3 Ml) Ud) 3 ml INH RQ6 [facility] Alprazolam (Xanax) 0.5 mg PO HS PRN PRN Reason: Anxiety Last Admin: 10/14/16 21:03 Dose: 0.5 mg Amiodarone HCl (Cordarone) 200 mg PO DAILY [facility] Last Admin: 10/17/16 11:36 Dose: 200 mg Amlodipine Besylate (Norvasc) 5 mg PO DAILY [facility] Last Admin: 10/17/16 11:37 Dose: 5 mg Bisacodyl (Dulcolax) 5 mg PO BID [facility] Last Admin: 10/17/16 11:09 Dose: Not Given Clonidine HCl (Catapres-Tts3 0.3 Mg/24 Hr) 1 patch TD QWK [facility] Last Admin: 10/17/16 11:36 Dose: 1 patch Enoxaparin Sodium (Lovenox) 40 mg SC DAILY [facility] Last Admin: 10/17/16 11:38 Dose: 40 mg Famotidine (Pepcid) 40 mg IVP Q12 [facility] Last Admin: 10/17/16 11:37 Dose: 40 mg Furosemide (Lasix) 40 mg IVP DAILY [facility] Last Admin: 10/17/16 11:41 Dose: 40 mg Dextrose/Sodium Chloride (Dextrose 5%/0.45% Ns 1000 Ml) 1,000 mls @ 40 mls/hr IV .Q24H [facility] Last Admin: 10/16/16 21:06 Dose: 40 mls/hr Tigecycline 50 mg/ Sodium (Chloride) 100 mls @ 100 mls/hr IVPB Q12H [facility] Potassium Chloride (Potassium Chloride 10 Meq/100 Ml) 10 meq in 100 mls @ 100 mls/hr IVPB Q2 [facility] Stop: 10/17/16 18:59 Lactulose (Enulose) 20 gm PO HS [facility] Last Admin: 10/16/16 21:04 Dose: 20 gm Levothyroxine Sodium (Synthroid) 150 mcg PO DAILY@0630 [facility] Last Admin: 10/17/16 06:10 Dose: 150 mcg Losartan Potassium (Cozaar) 100 mg PO DAILY [facility] Last Admin: 10/17/16 11:36 Dose: 100 mg Methylprednisolone (Solu-Medrol) 40 mg IVP Q12 [facility] Last Admin: 10/17/16 11:37 Dose: 40 mg Mirtazapine (Remeron) 15 mg PO HS [facility] Last Admin: 10/16/16 21:08 Dose: 15 mg Ondansetron HCl (Zofran Inj) 4 mg IVP Q8 PRN PRN Reason: Nausea Raloxifene HCl (Evista) 60 mg PO DAILY [facility] Last Admin: 10/17/16 11:37 Dose: 60 mg Saccharomyces Boulardii (Florastor) 250 mg PO DAILY [facility] Last Admin: 10/17/16 11:37 Dose: 250 mg Sucralfate (Carafate Tab) 1 gm PO AC [facility] Last Admin: 10/17/16 11:37 Dose: 1 gm - Labs Labs: 10/17/16 08:32 10/17/16 08:32 - Constitutional Appears: Confused, Cachectic, Chronically Ill - Head Exam Head Exam: ATRAUMATIC, NORMAL INSPECTION, NORMOCEPHALIC - Eye Exam Eye Exam: PERRL. absent: Scleral icterus - ENT Exam ENT Exam: Mucous Membranes Dry, Normal External Ear Exam - Neck Exam Neck Exam: absent: Lymphadenopathy - Respiratory Exam Respiratory Exam: Decreased Breath Sounds, Rhonchi - Cardiovascular Exam Cardiovascular Exam: REGULAR RHYTHM, +S1, +S2 - GI/Abdominal Exam GI & Abdominal Exam: Distended, Soft. absent: Tenderness Assessment and Plan (1) Dehydration Status: Deleted (2) Hypercalcemia Status: Acute (3) Weakness generalized Status: Chronic
--- NOTE | 2016-10-17 17:28 | RAD ---
HISTORY: pneumonia; monitoring efficacy of treatment COMPARISON: Comparison chest 10/16/2016 FINDINGS: LUNGS: Interval improvement previously noted diffuse bilateral infiltrates likely representing pulmonary edema/ CHF. Persistent on more confluent opacity seen in the right upper and middle as well as left upper lung field. Suspect the small left-sided effusion. Hyperinflation. Rule out chronic underlying COPD or emphysema PLEURA: As above. No apparent pneumothorax pneumothorax apparent. CARDIOVASCULAR: Heart appears borderline/ mildly enlarged OSSEOUS STRUCTURES: No significant abnormalities. VISUALIZED UPPER ABDOMEN: Normal. OTHER FINDINGS: None. IMPRESSION: Interval improvement previously noted diffuse bilateral infiltrates likely representing pulmonary edema/ CHF. Persistent on more confluent opacity seen in the right upper and middle as well as left upper lung field. Suspect the small left-sided effusion. Hyperinflation. Rule out chronic underlying COPD or emphysema
[2016-10-17] MEDS: Albuterol-Ipratrop 3 mg / 0.5 (3 ml) UD INH SCH (19:37)
[2016-10-17] MEDS: Albuterol 0.083% Inhal Sol (2.5 mg/3 mL) UD INH SCH (19:37)
[2016-10-17] MEDS: Acetylcysteine 20% Inhal Soln (4ml) INH SCH (19:37)
[2016-10-17] MEDS: Dextrose 5%/0.45% NS 1,000 ML IV SCH (21:06)
[2016-10-17] MEDS ORDERED: Potassium Chloride 20 MEQ in Dextrose 5%/0.45% NS 1,000 ML IV SCH (21:30)
--- NOTE | 2016-10-17 21:31 | CP.PCM.PN ---
Subjective - Date & Time of Evaluation Date of Evaluation: 10/17/16 Time of Evaluation: 21:30 - Subjective Subjective: Noted improvement in patient's CXR and labs, though still with significant O2 reqt. Unable to tolerate decreasing O2 as pt turns cyanotic. CHF appears to be improving though still a long ways away as rapid diuresis may be detrimental to patient. Otherwise, tolerates po Ensure by sipping from bottle. Objective - Vital Signs/Intake and Output Vital Signs (last 24 hours): Temp Pulse Resp BP Pulse Ox 97.4 F L 73 20 111/74 100 10/17/16 20:00 10/17/16 20:00 10/17/16 20:00 10/17/16 20:00 10/17/16 20:00 Intake and Output: 10/17/16 10/18/16 18:59 06:59 Intake Total 420 Balance 420 - Medications Medications: Current Medications Acetaminophen (Tylenol 325mg Tab) 650 mg PO Q6 PRN PRN Reason: Pain, moderate (4-7) Last Admin: 10/14/16 21:03 Dose: 650 mg Acetylcysteine (Acetylcysteine 20%) 4 ml INH Q6H [facility] Last Admin: 10/17/16 19:37 Dose: 4 ml Albuterol Sulfate (Albuterol 0.083% Inhal Rosie (2.5 Mg/3 Ml) Ud) 2.5 mg INH RQ6 [facility] Last Admin: 10/17/16 19:37 Dose: Not Given Albuterol/Ipratropium (Duoneb 3 Mg/0.5 Mg (3 Ml) Ud) 3 ml INH RQ6 [facility] Last Admin: 10/17/16 19:37 Dose: 3 ml Alprazolam (Xanax) 0.5 mg PO HS PRN PRN Reason: Anxiety Last Admin: 10/14/16 21:03 Dose: 0.5 mg Amiodarone HCl (Cordarone) 200 mg PO DAILY [facility] Last Admin: 10/17/16 11:36 Dose: 200 mg Amlodipine Besylate (Norvasc) 5 mg PO DAILY [facility] Last Admin: 10/17/16 11:37 Dose: 5 mg Bisacodyl (Dulcolax) 5 mg PO BID [facility] Last Admin: 10/17/16 17:10 Dose: Not Given Clonidine HCl (Catapres-Tts3 0.3 Mg/24 Hr) 1 patch TD QWK [facility] Last Admin: 10/17/16 11:36 Dose: 1 patch Enoxaparin Sodium (Lovenox) 40 mg SC DAILY [facility] Last Admin: 10/17/16 11:38 Dose: 40 mg Famotidine (Pepcid) 40 mg IVP Q12 [facility] Last Admin: 10/17/16 11:37 Dose: 40 mg Furosemide (Lasix) 40 mg IVP DAILY [facility] Last Admin: 10/17/16 11:41 Dose: 40 mg Tigecycline 50 mg/ Sodium (Chloride) 100 mls @ 100 mls/hr IVPB Q12H [facility] Last Admin: 10/17/16 21:02 Dose: 100 mls/hr Potassium Chloride 20 meq/ (Dextrose/Sodium Chloride) 1,010 mls @ 40 mls/hr IV .Q24H [facility] Lactulose (Enulose) 20 gm PO HS [facility] Last Admin: 10/16/16 21:04 Dose: 20 gm Levothyroxine Sodium (Synthroid) 150 mcg PO DAILY@0630 [facility] Last Admin: 10/17/16 06:10 Dose: 150 mcg Losartan Potassium (Cozaar) 100 mg PO DAILY [facility] Last Admin: 10/17/16 11:36 Dose: 100 mg Methylprednisolone (Solu-Medrol) 20 mg IVP Q12 [facility] Stop: 10/19/16 10:01 Mirtazapine (Remeron) 15 mg PO HS [facility] Last Admin: 10/16/16 21:08 Dose: 15 mg Ondansetron HCl (Zofran Inj) 4 mg IVP Q8 PRN PRN Reason: Nausea Raloxifene HCl (Evista) 60 mg PO DAILY [facility] Last Admin: 10/17/16 11:37 Dose: 60 mg Saccharomyces Boulardii (Florastor) 250 mg PO DAILY [facility] Last Admin: 10/17/16 11:37 Dose: 250 mg Sucralfate (Carafate Tab) 1 gm PO AC [facility] Last Admin: 10/17/16 17:09 Dose: 1 gm - Labs Labs: 10/17/16 08:32 10/17/16 08:32 - Constitutional Appears: No Acute Distress - Head Exam Head Exam: NORMAL INSPECTION, NORMOCEPHALIC - Eye Exam Eye Exam: Normal appearance Pupil Exam: NORMAL ACCOMODATION - ENT Exam ENT Exam: Mucous Membranes Moist, Normal Exam - Neck Exam Neck Exam: Normal Inspection - Respiratory Exam Respiratory Exam: Decreased Breath Sounds, NORMAL BREATHING PATTERN - Cardiovascular Exam Cardiovascular Exam: REGULAR RHYTHM - GI/Abdominal Exam GI & Abdominal Exam: Diminished Bowel Sounds - Rectal Exam Rectal Exam: Deferred - Extremities Exam Extremities Exam: Full ROM, Normal Inspection - Neurological Exam Neurological Exam: Oriented x3 (oriented to person only) Assessment and Plan (1) CHF (congestive heart failure), NYHA class III Assessment & Plan: continue gentle diuresis as well as IVF for dextrose at this time. Status: Acute (2) Pneumonia Assessment & Plan: vs. 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
--- NOTE | 2016-10-17 21:34 | CP.PCM.PN ---
Subjective - Date & Time of Evaluation Date of Evaluation: 10/17/16 Time of Evaluation: 21:34 - Subjective Subjective: The patient's family at bedside. Currently on nonrebreather. Awake and responding. But confused Vital signs reviewed No neck vein distention noted Diffuse bilateral rales noted CVS regular heart sound, no murmur noted Abdomen soft, nontender. Extremities no pedal edema [employer] alert awake oriented 3, no functional neurological deficit Assessment and recommendation: 81-year-old female now admitted with pneumonia. Bilateral infiltrate. Hypercalcemia. Workup is ongoing to rule out malignancy. Oncology follow-up. Objective - Vital Signs/Intake and Output Vital Signs (last 24 hours): Temp Pulse Resp BP Pulse Ox 97.4 F L 73 20 111/74 100 10/17/16 20:00 10/17/16 20:00 10/17/16 20:00 10/17/16 20:00 10/17/16 20:00 Intake and Output: 10/17/16 10/18/16 18:59 06:59 Intake Total 420 Balance 420 - Medications Medications: Current Medications Acetaminophen (Tylenol 325mg Tab) 650 mg PO Q6 PRN PRN Reason: Pain, moderate (4-7) Last Admin: 10/14/16 21:03 Dose: 650 mg Acetylcysteine (Acetylcysteine 20%) 4 ml INH Q6H [facility] Last Admin: 10/17/16 19:37 Dose: 4 ml Albuterol Sulfate (Albuterol 0.083% Inhal Rosie (2.5 Mg/3 Ml) Ud) 2.5 mg INH RQ6 [facility] Last Admin: 10/17/16 19:37 Dose: Not Given Albuterol/Ipratropium (Duoneb 3 Mg/0.5 Mg (3 Ml) Ud) 3 ml INH RQ6 [facility] Last Admin: 10/17/16 19:37 Dose: 3 ml Alprazolam (Xanax) 0.5 mg PO HS PRN PRN Reason: Anxiety Last Admin: 10/14/16 21:03 Dose: 0.5 mg Amiodarone HCl (Cordarone) 200 mg PO DAILY [facility] Last Admin: 10/17/16 11:36 Dose: 200 mg Amlodipine Besylate (Norvasc) 5 mg PO DAILY [facility] Last Admin: 10/17/16 11:37 Dose: 5 mg Bisacodyl (Dulcolax) 5 mg PO BID [facility] Last Admin: 10/17/16 17:10 Dose: Not Given Clonidine HCl (Catapres-Tts3 0.3 Mg/24 Hr) 1 patch TD QWK [facility] Last Admin: 10/17/16 11:36 Dose: 1 patch Enoxaparin Sodium (Lovenox) 40 mg SC DAILY [facility] Last Admin: 10/17/16 11:38 Dose: 40 mg Famotidine (Pepcid) 40 mg IVP Q12 [facility] Last Admin: 10/17/16 21:30 Dose: 40 mg Furosemide (Lasix) 40 mg IVP DAILY [facility] Last Admin: 10/17/16 11:41 Dose: 40 mg Tigecycline 50 mg/ Sodium (Chloride) 100 mls @ 100 mls/hr IVPB Q12H [facility] Last Admin: 10/17/16 21:02 Dose: 100 mls/hr Potassium Chloride 20 meq/ (Dextrose/Sodium Chloride) 1,010 mls @ 40 mls/hr IV .Q24H [facility] Lactulose (Enulose) 20 gm PO HS [facility] Last Admin: 10/17/16 21:30 Dose: 20 gm Levothyroxine Sodium (Synthroid) 150 mcg PO DAILY@0630 [facility] Last Admin: 10/17/16 06:10 Dose: 150 mcg Losartan Potassium (Cozaar) 100 mg PO DAILY [facility] Last Admin: 10/17/16 11:36 Dose: 100 mg Methylprednisolone (Solu-Medrol) 20 mg IVP Q12 [facility] Stop: 10/19/16 10:01 Last Admin: 10/17/16 21:30 Dose: 20 mg Mirtazapine (Remeron) 15 mg PO HS [facility] Last Admin: 10/17/16 21:30 Dose: 15 mg Ondansetron HCl (Zofran Inj) 4 mg IVP Q8 PRN PRN Reason: Nausea Raloxifene HCl (Evista) 60 mg PO DAILY [facility] Last Admin: 10/17/16 11:37 Dose: 60 mg Saccharomyces Boulardii (Florastor) 250 mg PO DAILY [facility] Last Admin: 10/17/16 11:37 Dose: 250 mg Sucralfate (Carafate Tab) 1 gm PO AC [facility] Last Admin: 10/17/16 17:09 Dose: 1 gm - Labs Labs: 10/17/16 08:32 10/17/16 08:32
[2016-10-18] MEDS: Acetylcysteine 20% Inhal Soln (4ml) INH SCH ×4 (01:52→19:20)
[2016-10-18] MEDS: Albuterol 0.083% Inhal Sol (2.5 mg/3 mL) UD INH SCH ×2 (01:53→19:21)
[2016-10-18] MEDS: Albuterol-Ipratrop 3 mg / 0.5 (3 ml) UD INH SCH ×4 (01:54→19:20)
[2016-10-18] MEDS: Levothyroxine 150 MCG TAB PO SCH (06:35)
[2016-10-18 07:33] LABS: BASO % 0.3 % (0.0-2.0); EOS # 0.1 K/uL (0.0-0.7); EOS % 0.3 % (0.0-4.0); HEMOGLOBIN 11.5 g/dL (11.0-16.0); LYMPH # 1.1 K/uL (1.0-4.3); LYMPH % 6.3 % (20.0-40.0); MEAN CELL VOLUME 91.4 fL (81.0-99.0); MEAN CORPUSCULAR HEMOGLOBIN 29.4 pg (27.0-31.0); MEAN CORPUSCULAR HGB CONC 32.2 g/dL (33.0-37.0); MEAN PLATELET VOLUME 10.3 fL (7.2-11.7); MONO # 0.9 K/uL (0.0-0.8); MONO % 5.4 % (0.0-10.0); NEUT # 15.1 K/uL (1.8-7.0); NEUT % 87.7 % (50.0-75.0); PLATELET COUNT 282 K/uL (130-400); RBC 3.92 Mil/uL (3.80-5.20); RED CELL DISTRIBUTION WIDTH 14.2 % (11.5-14.5); WHITE BLOOD COUNT 17.2 K/uL (4.8-10.8)
[2016-10-18 07:48] LABS: CALCIUM 8.6 mg/dl (8.6-10.4)
[2016-10-18 08:53] LABS: BANDS 1 % (0-2); LYMPHOCYTE 6 % (20-40); MONOCYTE 6 % (0-10); NEUTROPHIL 87 % (50-75); TOTAL CELLS COUNTED 100
[2016-10-18 08:54] LABS: OVALOCYTES SLIGHT; PLATELET ESTIMATE NORMAL (NORMAL)
[2016-10-18] MEDS: Enoxaparin 30 mg Syringe SC SCH (10:15)
[2016-10-18] MEDS: Bisacodyl 5mg EC Tab PO SCH ×2 (10:16→18:17)
[2016-10-18] MEDS: MethylPREDNISolone 40 mg Vial IVP SCH ×2 (10:16→21:19)
[2016-10-18] MEDS: Saccharomyces Boulardi 250 mg Cap PO SCH (10:16)
--- NOTE | 2016-10-18 17:29 | RAD ---
HISTORY: pneumonia; monitoring efficacy of treatment COMPARISON: October 17, 2016. FINDINGS: LUNGS: Improving multifocal infiltrates particularly in the right upper lobe. Subsegmental infiltrates left upper lobe, right lower lobe persists. PLEURA: No significant pleural effusion identified, no pneumothorax apparent. CARDIOVASCULAR: Normal. OSSEOUS STRUCTURES: No significant abnormalities. VISUALIZED UPPER ABDOMEN: Normal. OTHER FINDINGS: None. IMPRESSION: Improving bilateral infiltrates.
--- NOTE | 2016-10-18 18:24 | CP.PCM.PN ---
Subjective - Date & Time of Evaluation Date of Evaluation: 10/18/16 Time of Evaluation: 09:00 - Subjective Subjective: afebrile remains sob on non rebreather IV rx in progress Objective - Vital Signs/Intake and Output Vital Signs (last 24 hours): Temp Pulse Resp BP Pulse Ox 97.7 F 67 20 154/74 H 98 10/18/16 07:19 10/18/16 07:19 10/18/16 07:19 10/18/16 10:18 10/18/16 13:15 Intake and Output: 10/18/16 10/18/16 06:59 18:59 Intake Total 200 1820 Output Total 600 Balance 200 1220 - Medications Medications: Current Medications Acetaminophen (Tylenol 325mg Tab) 650 mg PO Q6 PRN PRN Reason: Pain, moderate (4-7) Last Admin: 10/14/16 21:03 Dose: 650 mg Acetylcysteine (Acetylcysteine 20%) 4 ml INH Q6H [facility] Last Admin: 10/18/16 13:08 Dose: 4 ml Albuterol Sulfate (Albuterol 0.083% Inhal Rosie (2.5 Mg/3 Ml) Ud) 2.5 mg INH RQ6 [facility] Last Admin: 10/18/16 01:53 Dose: 2.5 mg Albuterol/Ipratropium (Duoneb 3 Mg/0.5 Mg (3 Ml) Ud) 3 ml INH RQ6 [facility] Last Admin: 10/18/16 13:10 Dose: 3 ml Alprazolam (Xanax) 0.5 mg PO HS PRN PRN Reason: Anxiety Last Admin: 10/14/16 21:03 Dose: 0.5 mg Amiodarone HCl (Cordarone) 200 mg PO DAILY [facility] Last Admin: 10/18/16 10:17 Dose: 200 mg Amlodipine Besylate (Norvasc) 5 mg PO DAILY [facility] Last Admin: 10/18/16 10:17 Dose: 5 mg Bisacodyl (Dulcolax) 5 mg PO BID [facility] Last Admin: 10/18/16 18:17 Dose: Not Given Clonidine HCl (Catapres-Tts3 0.3 Mg/24 Hr) 1 patch TD QWK [facility] Last Admin: 10/17/16 11:36 Dose: 1 patch Enoxaparin Sodium (Lovenox) 30 mg SC DAILY [facility] Last Admin: 10/18/16 10:15 Dose: 30 mg Famotidine (Pepcid) 20 mg IVP DAILY [facility] Last Admin: 10/18/16 10:15 Dose: 20 mg Furosemide (Lasix) 40 mg IVP DAILY [facility] Last Admin: 10/18/16 10:18 Dose: 40 mg Tigecycline 50 mg/ Sodium (Chloride) 100 mls @ 100 mls/hr IVPB Q12H [facility] Last Admin: 10/18/16 16:39 Dose: 100 mls/hr Lactulose (Enulose) 20 gm PO HS [facility] Last Admin: 10/17/16 21:30 Dose: 20 gm Levothyroxine Sodium (Synthroid) 150 mcg PO DAILY@0630 [facility] Last Admin: 10/18/16 06:35 Dose: 150 mcg Losartan Potassium (Cozaar) 100 mg PO DAILY [facility] Last Admin: 10/18/16 10:18 Dose: 100 mg Methylprednisolone (Solu-Medrol) 20 mg IVP Q12 [facility] Stop: 10/19/16 10:01 Last Admin: 10/18/16 10:16 Dose: 20 mg Mirtazapine (Remeron) 15 mg PO [facility] Last Admin: 10/17/16 21:30 Dose: 15 mg Ondansetron HCl (Zofran Inj) 4 mg IVP Q8 PRN PRN Reason: Nausea Raloxifene HCl (Evista) 60 mg PO DAILY [facility] Last Admin: 10/18/16 10:17 Dose: 60 mg Saccharomyces Boulardii (Florastor) 250 mg PO DAILY [facility] Last Admin: 10/18/16 10:16 Dose: 250 mg Sucralfate (Carafate Tab) 1 gm PO AC [facility] Last Admin: 10/18/16 16:35 Dose: 1 gm - Labs Labs: 10/18/16 07:24 10/18/16 07:24 - Constitutional Appears: Non-toxic, Cachectic, Chronically Ill - Head Exam Head Exam: NORMOCEPHALIC - Eye Exam Eye Exam: PERRL. absent: Scleral icterus - ENT Exam ENT Exam: Mucous Membranes Dry - Neck Exam Neck Exam: absent: Lymphadenopathy - Respiratory Exam Respiratory Exam: Decreased Breath Sounds - Cardiovascular Exam Cardiovascular Exam: REGULAR RHYTHM - GI/Abdominal Exam GI & Abdominal Exam: Distended, Soft - Rectal Exam Rectal Exam: Deferred - Exam Exam: NORMAL INSPECTION Assessment and Plan (1) Weakness generalized Status: Resolved
[2016-10-18 19:16] LABS: ALBUMIN (PEP) 2.9 g/dL (3.8-4.8); ALPHA-1-GLOBULIN (PEP) 0.6 g/dL (0.2-0.3)
--- NOTE | 2016-10-18 20:34 | CP.PCM.PN ---
Subjective - Date & Time of Evaluation Date of Evaluation: 10/18/16 Time of Evaluation: 20:32 - Subjective Subjective: Pt doing much better, both clinically and with her labs, though pt still has no appetite. Tygacil may be killing her appetite as well. > Pt changed to Venturi mask and O2 sat holding. Will continue to monitor. Continue IV abx and diuresis. > Pt wishes to go home, but advised pt that she should stay bec she is incapable of taking care of herself, at least in her present state. Informed pt that if she decides to go home now, she may regress and bounce back to the hospital--an outcome neither of us relish. Objective - Vital Signs/Intake and Output Vital Signs (last 24 hours): Temp Pulse Resp BP Pulse Ox 97.4 F L 83 20 133/68 99 10/18/16 17:00 10/18/16 18:00 10/18/16 17:00 10/18/16 17:00 10/18/16 17:00 Intake and Output: 10/18/16 10/19/16 18:59 06:59 Intake Total 1820 Output Total 600 Balance 1220 - Medications Medications: Current Medications Acetaminophen (Tylenol 325mg Tab) 650 mg PO Q6 PRN PRN Reason: Pain, moderate (4-7) Last Admin: 10/18/16 19:40 Dose: 650 mg Acetylcysteine (Acetylcysteine 20%) 4 ml INH Q6H [facility] Last Admin: 10/18/16 19:20 Dose: 4 ml Albuterol Sulfate (Albuterol 0.083% Inhal Rosie (2.5 Mg/3 Ml) Ud) 2.5 mg INH RQ6 [facility] Last Admin: 10/18/16 19:21 Dose: Not Given Albuterol/Ipratropium (Duoneb 3 Mg/0.5 Mg (3 Ml) Ud) 3 ml INH RQ6 [facility] Last Admin: 10/18/16 19:20 Dose: 3 ml Alprazolam (Xanax) 0.5 mg PO HS PRN PRN Reason: Anxiety Last Admin: 10/14/16 21:03 Dose: 0.5 mg Amiodarone HCl (Cordarone) 200 mg PO DAILY [facility] Last Admin: 10/18/16 10:17 Dose: 200 mg Amlodipine Besylate (Norvasc) 5 mg PO DAILY [facility] Last Admin: 10/18/16 10:17 Dose: 5 mg Bisacodyl (Dulcolax) 5 mg PO BID COUNTS [facility] BEDS AT [facility] Last Admin: 10/18/16 18:17 Dose: Not Given Clonidine HCl (Catapres-Tts3 0.3 Mg/24 Hr) 1 patch TD QWK COUNTS INCLUDE 234 BEDS AT [facility] Last Admin: 10/17/16 11:36 Dose: 1 patch Enoxaparin Sodium (Lovenox) 30 mg SC DAILY [facility]CLUDE 234 BEDS AT [facility] Last Admin: 10/18/16 10:15 Dose: 30 mg Famotidine (Pepcid) 20 mg IVP DAILY [facility]CLUDE 234 BEDS AT [facility] Last Admin: 10/18/16 10:15 Dose: 20 mg Furosemide (Lasix) 40 mg IVP DAILY [facility]CLUDE 234 BEDS AT [facility] Last Admin: 10/18/16 10:18 Dose: 40 mg Tigecycline 50 mg/ Sodium (Chloride) 100 mls @ 100 mls/hr IVPB Q12H COUNTS INCLUDE 234 BEDS AT THE [facility] Last Admin: 10/18/16 16:39 Dose: 100 mls/hr Lactulose (Enulose) 20 gm PO HS COUNTS INCLUDE 234 BEDS AT [facility] Last Admin: 10/17/16 21:30 Dose: 20 gm Levothyroxine Sodium (Synthroid) 150 mcg PO DAILY@0630 [facility]S [facility]CLUDE 234 BEDS AT [facility] Last Admin: 10/18/16 06:35 Dose: 150 mcg Losartan Potassium (Cozaar) 100 mg PO DAILY [facility]CLUDE 234 BEDS AT [facility] Last Admin: 10/18/16 10:18 Dose: 100 mg Methylprednisolone (Solu-Medrol) 20 mg IVP Q12 COUNTS INCLUDE 234 BEDS AT THE [facility] Stop: 10/19/16 10:01 Last Admin: 10/18/16 10:16 Dose: 20 mg Mirtazapine (Remeron) 15 mg PO HS COUNTS INCLUDE 234 BEDS AT [facility] Last Admin: 10/17/16 21:30 Dose: 15 mg Ondansetron HCl (Zofran Inj) 4 mg IVP Q8 PRN PRN Reason: Nausea Raloxifene HCl (Evista) 60 mg PO DAILY [facility]CLUDE 234 BEDS AT [facility] Last Admin: 10/18/16 10:17 Dose: 60 mg Saccharomyces Boulardii (Florastor) 250 mg PO DAILY [facility]CLUDE 234 BEDS AT [facility] Last Admin: 10/18/16 10:16 Dose: 250 mg Sucralfate (Carafate Tab) 1 gm PO AC COUNTS INCLUDE 234 BEDS AT [facility] Last Admin: 10/18/16 16:35 Dose: 1 gm - Labs Labs: 10/18/16 07:24 10/18/16 07:24 - Constitutional Appears: No Acute Distress - Head Exam Head Exam: ATRAUMATIC, NORMAL INSPECTION, NORMOCEPHALIC - Eye Exam Eye Exam: EOMI, Normal appearance Pupil Exam: NORMAL ACCOMODATION - ENT Exam ENT Exam: Mucous Membranes Moist, Normal Exam - Neck Exam Neck Exam: Full ROM, Normal Inspection - Respiratory Exam Respiratory Exam: Decreased Breath Sounds, Clear to Ausculation Bilateral - Cardiovascular Exam Cardiovascular Exam: REGULAR RHYTHM - GI/Abdominal Exam GI & Abdominal Exam: Diminished Bowel Sounds - Rectal Exam Rectal Exam: Deferred - Extremities Exam Extremities Exam: Normal Inspection (lost muscle mass) - Back Exam Back Exam: NORMAL INSPECTION - Neurological Exam Neurological Exam: Alert, Awake, Oriented x3 Neuro motor strength exam: Left Upper Extremity: 2/1, Right Upper Extremity: 2/1 , Left Lower Extremity: 2/1, Right Lower Extremity: 2/1 - Psychiatric Exam Psychiatric exam: Normal Affect, Normal Mood Additional comments: very stable mentally and cognitively able to make sound judgment with goos insight - Skin Skin Exam: Dry, Intact, Normal Color, Warm Assessment and Plan (1) CHF (congestive heart failure), NYHA class III Assessment & Plan: continue diuresis Status: Acute (2) Pneumonia Assessment & Plan: continue IV Tygacil Status: Acute (3) Weakness generalized Assessment & Plan: resume PT/OT Status: Resolved (4) Delirium due to another medical condition Assessment & Plan: improving Status: Acute (5) Myocardial infarction acute Assessment & Plan: stable Status: Acute (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 Will need extensive rehab, and pt refuses to go. Pt not quite medicaly stable yet to be discharged. If discharged now, she will definitely bounce back. Refer to [facility] or [facility], otherwise if she insists on going home, she will have to go [facility].
[2016-10-18] MEDS: guaiFENesin 100 mg/5 ml Syrup UD PO SCH (21:19)
--- NOTE | 2016-10-18 22:44 | CP.PCM.PN ---
Subjective - Date & Time of Evaluation Date of Evaluation: 10/18/16 Time of Evaluation: 22:44 Objective - Vital Signs/Intake and Output Vital Signs (last 24 hours): Temp Pulse Resp BP Pulse Ox 97.8 F 74 20 135/63 99 10/18/16 21:00 10/18/16 21:00 10/18/16 17:00 10/18/16 21:00 10/18/16 17:00 Intake and Output: 10/18/16 10/19/16 18:59 06:59 Intake Total 1820 100 Output Total 600 Balance 1220 100 - Medications Medications: Current Medications Acetaminophen (Tylenol 325mg Tab) 650 mg PO Q6 PRN PRN Reason: Pain, moderate (4-7) Last Admin: 10/18/16 19:40 Dose: 650 mg Acetylcysteine (Acetylcysteine 20%) 4 ml INH Q6H [facility] Last Admin: 10/18/16 19:20 Dose: 4 ml Albuterol Sulfate (Albuterol 0.083% Inhal Rosie (2.5 Mg/3 Ml) Ud) 2.5 mg INH RQ6 [facility] Last Admin: 10/18/16 19:21 Dose: Not Given Albuterol/Ipratropium (Duoneb 3 Mg/0.5 Mg (3 Ml) Ud) 3 ml INH RQ6 [facility] Last Admin: 10/18/16 19:20 Dose: 3 ml Alprazolam (Xanax) 0.5 mg PO HS PRN PRN Reason: Anxiety Last Admin: 10/14/16 21:03 Dose: 0.5 mg Amiodarone HCl (Cordarone) 200 mg PO DAILY [facility] Last Admin: 10/18/16 10:17 Dose: 200 mg Amlodipine Besylate (Norvasc) 5 mg PO DAILY [facility] Last Admin: 10/18/16 10:17 Dose: 5 mg Bisacodyl (Dulcolax) 5 mg PO BID [facility] Last Admin: 10/18/16 18:17 Dose: Not Given Clonidine HCl (Catapres-Tts3 0.3 Mg/24 Hr) 1 patch TD QWK [facility] Last Admin: 10/17/16 11:36 Dose: 1 patch Enoxaparin Sodium (Lovenox) 30 mg SC DAILY [facility] Last Admin: 10/18/16 10:15 Dose: 30 mg Famotidine (Pepcid) 20 mg IVP DAILY [facility] Last Admin: 10/18/16 10:15 Dose: 20 mg Furosemide (Lasix) 40 mg IVP DAILY [facility] Last Admin: 10/18/16 10:18 Dose: 40 mg Guaifenesin (Robitussin) 100 mg PO Q6H [facility] Last Admin: 10/18/16 21:19 Dose: 100 mg Tigecycline 50 mg/ Sodium (Chloride) 100 mls @ 100 mls/hr IVPB Q12H [facility] Last Admin: 10/18/16 16:39 Dose: 100 mls/hr Lactulose (Enulose) 20 gm PO HS [facility] Last Admin: 10/18/16 21:19 Dose: 20 gm Levothyroxine Sodium (Synthroid) 150 mcg PO DAILY@0630 [facility] Last Admin: 10/18/16 06:35 Dose: 150 mcg Losartan Potassium (Cozaar) 100 mg PO DAILY [facility] Last Admin: 10/18/16 10:18 Dose: 100 mg Methylprednisolone (Solu-Medrol) 20 mg IVP Q12 [facility] Stop: 10/19/16 10:01 Last Admin: 10/18/16 21:19 Dose: 20 mg Mirtazapine (Remeron) 15 mg PO HS [facility] Last Admin: 10/18/16 21:19 Dose: 15 mg Ondansetron HCl (Zofran Inj) 4 mg IVP Q8 PRN PRN Reason: Nausea Raloxifene HCl (Evista) 60 mg PO DAILY [facility] Last Admin: 10/18/16 10:17 Dose: 60 mg Saccharomyces Boulardii (Florastor) 250 mg PO DAILY [facility] Last Admin: 10/18/16 10:16 Dose: 250 mg Sucralfate (Carafate Tab) 1 gm PO AC [facility] Last Admin: 10/18/16 16:35 Dose: 1 gm - Labs Labs: 10/18/16 07:24 10/18/16 07:24
[2016-10-19] MEDS: Albuterol 0.083% Inhal Sol (2.5 mg/3 mL) UD INH SCH ×4 (02:14→19:05)
[2016-10-19] MEDS: Acetylcysteine 20% Inhal Soln (4ml) INH SCH ×4 (02:14→19:05)
[2016-10-19] MEDS: Albuterol-Ipratrop 3 mg / 0.5 (3 ml) UD INH SCH ×4 (02:15→19:05)
[2016-10-19] MEDS: guaiFENesin 100 mg/5 ml Syrup UD PO SCH ×4 (03:00→20:42)
[2016-10-19] MEDS: Levothyroxine 150 MCG TAB PO SCH (07:36)
[2016-10-19 08:40] LABS: BASO % 0.1 % (0.0-2.0); LYMPH # 1.7 K/uL (1.0-4.3); LYMPH % 7.7 % (20.0-40.0); MEAN CELL VOLUME 91.6 fL (81.0-99.0); MEAN CORPUSCULAR HEMOGLOBIN 29.7 pg (27.0-31.0); MEAN CORPUSCULAR HGB CONC 32.4 g/dL (33.0-37.0); MEAN PLATELET VOLUME 10.4 fL (7.2-11.7); MONO # 0.9 K/uL (0.0-0.8); MONO % 3.8 % (0.0-10.0); NEUT # 19.9 K/uL (1.8-7.0); NEUT % 88.4 % (50.0-75.0); PLATELET COUNT 289 K/uL (130-400); RBC 4.64 Mil/uL (3.80-5.20); RED CELL DISTRIBUTION WIDTH 14.5 % (11.5-14.5); WHITE BLOOD COUNT 22.5 K/uL (4.8-10.8)
[2016-10-19 08:41] LABS: HEMOGLOBIN 13.8 g/dL (11.0-16.0)
[2016-10-19 08:53] LABS: ALB/GLOB RATIO 1.2 (1.0-2.1)
[2016-10-19 08:54] LABS: CALCIUM 8.7 mg/dl (8.6-10.4)
[2016-10-19 09:06] LABS: T4 7.85 ug/dL (5.5-11.0)
[2016-10-19] MEDS: Saccharomyces Boulardi 250 mg Cap PO SCH (09:37)
[2016-10-19] MEDS: Bisacodyl 5mg EC Tab PO SCH (09:37)
[2016-10-19] MEDS: Enoxaparin 30 mg Syringe SC SCH (09:37)
[2016-10-19] MEDS: MethylPREDNISolone 40 mg Vial IVP SCH (09:37)
[2016-10-19 09:40] LABS: BANDS 2 % (0-2); LYMPHOCYTE 5 % (20-40); MONOCYTE 3 % (0-10); NEUTROPHIL 90 % (50-75); PLATELET ESTIMATE NORMAL (NORMAL); TOTAL CELLS COUNTED 100
--- NOTE | 2016-10-19 10:45 | PROCN ---
DATE: 10/18/2016 SUBJECTIVE: This is an 81-year-old female with recent generalized body weakness, hypersomnolence and supervening malignant hypercalcemia and has since then improved clinically and metabolically as noted thereof. She received vigorous IV hydration on admission and for the next few days inpatient and also received one dose of IV bisphosphonate, which was actually Zometa given at 4 mg IV piggyback as one dose last week with remarkable improvement thereof. Her oral intake has improved and her sensorium and physical well-being also has improved accordingly. However, her oral intake still is viable as per the nursing staff. LABORATORY DATA: The latest chemistry showed the BUN of 62, sodium 141, potassium 3.8, chloride 106, CO2 26, glucose 108, and creatinine 1.4. Her proBNP today is 23,400. Her calcium level now is normal at 8.6 mg/dL with an initial calcium actually of 14.6 mg/dL. She is undergoing also a full malignancy workup for underlying humoral versus osteolytic etiology for hypercalcemia, and so far the malignancy workup has been essentially unremarkable. Her parathyroid hormone levels have been normal and reported as 10, which excludes the possibility of underlying parathyroid-related hypercalcemia. We will obtain serial chemistries and supplement *------* as needed. We will follow *------*. Thais Wiggins MD
--- NOTE | 2016-10-19 15:11 | CP.PCM.PN ---
Subjective - Date & Time of Evaluation Date of Evaluation: 10/19/16 Time of Evaluation: 09:00 - Subjective Subjective: IMPROVING IV RX IN PROGRESS IV RX RNEWED Objective - Vital Signs/Intake and Output Vital Signs (last 24 hours): Temp Pulse Resp BP Pulse Ox 97.5 F L 97 H 20 109/74 99 10/19/16 08:01 10/19/16 08:36 10/19/16 08:01 10/19/16 09:38 10/19/16 08:01 Intake and Output: 10/19/16 10/19/16 06:59 18:59 Intake Total 100 460 Output Total 500 1100 Balance -400 -640 - Medications Medications: Current Medications Acetaminophen (Tylenol 325mg Tab) 650 mg PO Q6 PRN PRN Reason: Pain, moderate (4-7) Last Admin: 10/19/16 12:54 Dose: 650 mg Acetylcysteine (Acetylcysteine 20%) 4 ml INH Q6H [facility] Last Admin: 10/19/16 13:20 Dose: Not Given Albuterol Sulfate (Albuterol 0.083% Inhal Rosie (2.5 Mg/3 Ml) Ud) 2.5 mg INH RQ6 [facility] Last Admin: 10/19/16 13:19 Dose: Not Given Albuterol/Ipratropium (Duoneb 3 Mg/0.5 Mg (3 Ml) Ud) 3 ml INH RQ6 [facility] Last Admin: 10/19/16 13:19 Dose: 3 ml Alprazolam (Xanax) 0.5 mg PO HS PRN PRN Reason: Anxiety Last Admin: 10/18/16 23:45 Dose: 0.5 mg Amiodarone HCl (Cordarone) 200 mg PO DAILY [facility] Last Admin: 10/19/16 09:37 Dose: 200 mg Amlodipine Besylate (Norvasc) 5 mg PO DAILY [facility] Last Admin: 10/18/16 10:17 Dose: 5 mg Bisacodyl (Dulcolax) 5 mg PO BID [facility] Last Admin: 10/19/16 09:37 Dose: 5 mg Clonidine HCl (Catapres-Tts3 0.3 Mg/24 Hr) 1 patch TD QWK [facility] Last Admin: 10/17/16 11:36 Dose: 1 patch Enoxaparin Sodium (Lovenox) 30 mg SC DAILY [facility] Last Admin: 10/19/16 09:37 Dose: 30 mg Famotidine (Pepcid) 20 mg IVP DAILY [facility] Last Admin: 10/19/16 09:37 Dose: 20 mg Furosemide (Lasix) 40 mg IVP DAILY [facility] Last Admin: 10/19/16 09:38 Dose: 40 mg Guaifenesin (Robitussin) 100 mg PO Q6H [facility] Last Admin: 10/19/16 09:38 Dose: 100 mg Tigecycline 50 mg/ Sodium (Chloride) 100 mls @ 100 mls/hr IVPB Q12H [facility] Last Admin: 10/19/16 05:38 Dose: 100 mls/hr Lactulose (Enulose) 20 gm PO HS [facility] Last Admin: 10/18/16 21:19 Dose: 20 gm Levothyroxine Sodium (Synthroid) 150 mcg PO DAILY@0630 [facility] Last Admin: 10/19/16 07:36 Dose: 150 mcg Losartan Potassium (Cozaar) 100 mg PO DAILY [facility] Last Admin: 10/19/16 09:37 Dose: 100 mg Mirtazapine (Remeron) 15 mg PO HS [facility] Last Admin: 10/18/16 21:19 Dose: 15 mg Ondansetron HCl (Zofran Inj) 4 mg IVP Q8 PRN PRN Reason: Nausea Last Admin: 10/19/16 12:53 Dose: 4 mg Raloxifene HCl (Evista) 60 mg PO DAILY [facility] Last Admin: 10/19/16 09:38 Dose: 60 mg Saccharomyces Boulardii (Florastor) 250 mg PO DAILY [facility] Last Admin: 10/19/16 09:37 Dose: 250 mg Sucralfate (Carafate Tab) 1 gm PO AC [facility] Last Admin: 10/19/16 12:53 Dose: 1 gm - Labs Labs: 10/19/16 08:23 10/19/16 08:23 - Constitutional Appears: Non-toxic, Cachectic, Chronically Ill - Head Exam Head Exam: NORMOCEPHALIC - Eye Exam Eye Exam: Normal appearance. absent: Scleral icterus - ENT Exam ENT Exam: Mucous Membranes Dry - Neck Exam Neck Exam: absent: Lymphadenopathy - Respiratory Exam Respiratory Exam: Decreased Breath Sounds, Rhonchi - Cardiovascular Exam Cardiovascular Exam: REGULAR RHYTHM, +S1, +S2 - GI/Abdominal Exam GI & Abdominal Exam: Distended, Soft Assessment and Plan (1) Weakness generalized Status: Resolved (2) CHF (congestive heart failure), NYHA class III Status: Acute (3) COPD (chronic obstructive pulmonary disease) Status: Acute (4) Pneumonia Status: Acute
--- NOTE | 2016-10-19 16:48 | RAD ---
HISTORY: pneumonia; monitoring efficacy of treatment . Technique: Single view portable semi erect @ 16:16. COMPARISON: Multiple serial examinations preceding the most recent study: October 18, 2016. Study performed 17:07. FINDINGS: LUNGS: Interval improvement in infiltrates particularly right lower lobe. Improved aeration left lower lobe. PLEURA: No significant pleural effusion identified, no pneumothorax apparent. CARDIOVASCULAR: No radiographic findings to suggest acute or significant cardiovascular disease. OSSEOUS STRUCTURES: No significant abnormalities. VISUALIZED UPPER ABDOMEN: Normal. OTHER FINDINGS: None. IMPRESSION: Improving bilateral lower lobe infiltrates.
--- NOTE | 2016-10-19 17:29 | CP.PCM.PN ---
Subjective - Date & Time of Evaluation Date of Evaluation: 10/19/16 Time of Evaluation: 17:25 - Subjective Subjective: Pt seen and examined. Continues to improve and starting to have appetite, though complains of difficulty swallowing probably from a very dry throat from large amounts of O2 when very sick drying out mucosa. Pt also complains of not having BM but pt has not been eating much, if any, over the last 8-9 days. Nurse attempted to get pt sitting up for a longer period but pt coulld not maintain her posture nor balance from generalized weakness. Anticipate that pt needs to go to [facility], whether she will go is another matter. Will try to convince pt of the need since daughter already on board. Objective - Vital Signs/Intake and Output Vital Signs (last 24 hours): Temp Pulse Resp BP Pulse Ox 97.5 F L 103 H 18 107/62 97 10/19/16 15:42 10/19/16 15:43 10/19/16 15:42 10/19/16 15:42 10/19/16 15:42 Intake and Output: 10/19/16 10/19/16 06:59 18:59 Intake Total 100 660 Output Total 500 1100 Balance -400 -440 - Medications Medications: Current Medications Acetaminophen (Tylenol 325mg Tab) 650 mg PO Q6 PRN PRN Reason: Pain, moderate (4-7) Last Admin: 10/19/16 12:54 Dose: 650 mg Acetylcysteine (Acetylcysteine 20%) 4 ml INH Q6H [facility] Last Admin: 10/19/16 13:20 Dose: Not Given Albuterol Sulfate (Albuterol 0.083% Inhal Rosie (2.5 Mg/3 Ml) Ud) 2.5 mg INH RQ6 [facility] Last Admin: 10/19/16 13:19 Dose: Not Given Albuterol/Ipratropium (Duoneb 3 Mg/0.5 Mg (3 Ml) Ud) 3 ml INH RQ6 [facility] Last Admin: 10/19/16 13:19 Dose: 3 ml Alprazolam (Xanax) 0.5 mg PO HS PRN PRN Reason: Anxiety Last Admin: 10/18/16 23:45 Dose: 0.5 mg Amiodarone HCl (Cordarone) 200 mg PO DAILY [facility] Last Admin: 10/19/16 09:37 Dose: 200 mg Amlodipine Besylate (Norvasc) 5 mg PO DAILY [facility] Last Admin: 10/19/16 09:37 Dose: 5 mg Clonidine HCl (Catapres-Tts3 0.3 Mg/24 Hr) 1 patch TD QWK [facility] Last Admin: 10/17/16 11:36 Dose: 1 patch Enoxaparin Sodium (Lovenox) 30 mg SC DAILY [facility] Last Admin: 10/19/16 09:37 Dose: 30 mg Famotidine (Pepcid) 20 mg IVP DAILY [facility] Last Admin: 10/19/16 09:37 Dose: 20 mg Furosemide (Lasix) 20 mg IVP DAILY [facility] Guaifenesin (Robitussin) 100 mg PO Q6H [facility] Last Admin: 10/19/16 15:25 Dose: 100 mg Tigecycline 50 mg/ Sodium (Chloride) 100 mls @ 100 mls/hr IVPB Q12H [facility] Last Admin: 10/19/16 16:26 Dose: 100 mls/hr Lactulose (Enulose) 20 gm PO HS [facility] Last Admin: 10/18/16 21:19 Dose: 20 gm Levothyroxine Sodium (Synthroid) 150 mcg PO DAILY@0630 [facility] Last Admin: 10/19/16 07:36 Dose: 150 mcg Losartan Potassium (Cozaar) 100 mg PO DAILY [facility] Last Admin: 10/19/16 09:37 Dose: 100 mg Mirtazapine (Remeron) 15 mg PO HS [facility] Last Admin: 10/18/16 21:19 Dose: 15 mg Ondansetron HCl (Zofran Inj) 4 mg IVP Q8 PRN PRN Reason: Nausea Last Admin: 10/19/16 12:53 Dose: 4 mg Raloxifene HCl (Evista) 60 mg PO DAILY [facility] Last Admin: 10/19/16 09:38 Dose: 60 mg Saccharomyces Boulardii (Florastor) 250 mg PO DAILY [facility] Last Admin: 10/19/16 09:37 Dose: 250 mg Sucralfate (Carafate Tab) 1 gm PO AC [facility] Last Admin: 10/19/16 16:26 Dose: 1 gm Sucralfate (Carafate Oral Susp) 1 gm PO AC [facility] - Labs Labs: 10/19/16 08:23 10/19/16 08:23 - Constitutional Appears: No Acute Distress - Head Exam Head Exam: NORMAL INSPECTION, NORMOCEPHALIC - Eye Exam Eye Exam: Normal appearance - ENT Exam ENT Exam: Normal Exam - Neck Exam Neck Exam: Normal Inspection - Respiratory Exam Respiratory Exam: Decreased Breath Sounds, Clear to Ausculation Bilateral, NORMAL BREATHING PATTERN - Cardiovascular Exam Cardiovascular Exam: REGULAR RHYTHM - GI/Abdominal Exam GI & Abdominal Exam: Soft, Diminished Bowel Sounds - Rectal Exam Rectal Exam: Deferred - Back Exam Back Exam: NORMAL INSPECTION Additional comments: redness noted in some areas but no skin breakdown - Neurological Exam Neurological Exam: Abnormal Gait (pt too weak to assess gait; danger of falling) , Alert, Awake Neuro motor strength exam: Left Upper Extremity: 2, Right Upper Extremity: 2 , Left Lower Extremity: 2, Right Lower Extremity: 2 - Psychiatric Exam Psychiatric exam: Normal Affect, Normal Mood - Skin Skin Exam: Dry, Intact, Pallor Assessment and Plan (1) CHF (congestive heart failure), NYHA class III Assessment & Plan: continue diuresis; decrease dosage as appropriate in balance renal fxn Status: Acute (2) Pneumonia Assessment & Plan: continue IV Tygacil, discuss with ID total length of course of abx Status: Acute (3) Weakness generalized Assessment & Plan: had been recommending [facility] placement; pt will not agree to another hospitalization even if it is LTACH Status: Resolved (4) Delirium due to another medical condition Status: Resolved (5) 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
[2016-10-20] MEDS ORDERED: Aluminum Hydroxide/Magnesium Hydroxide Susp (30 mL) PO ONE (02:02)
[2016-10-20] MEDS: Albuterol 0.083% Inhal Sol (2.5 mg/3 mL) UD INH SCH ×4 (02:08→20:12)
[2016-10-20] MEDS: Acetylcysteine 20% Inhal Soln (4ml) INH SCH ×4 (02:08→20:12)
[2016-10-20] MEDS: Albuterol-Ipratrop 3 mg / 0.5 (3 ml) UD INH SCH ×2 (02:09→20:11)
[2016-10-20] MEDS: guaiFENesin 100 mg/5 ml Syrup UD PO SCH ×3 (02:30→14:00)
[2016-10-20] MEDS: Sucralfate 1 gm/10 ml Oral Susp UD PO SCH ×6 (06:45→16:30)
[2016-10-20] MEDS: Levothyroxine 150 MCG TAB PO SCH (06:45)
[2016-10-20] MEDS: Enoxaparin 30 mg Syringe SC SCH (10:25)
[2016-10-20] MEDS: Saccharomyces Boulardi 250 mg Cap PO SCH (10:26)
--- NOTE | 2016-10-20 18:30 | CP.PCM.PN ---
Subjective - Date & Time of Evaluation Date of Evaluation: 10/20/16 Time of Evaluation: 18:30 Objective - Vital Signs/Intake and Output Vital Signs (last 24 hours): Temp Pulse Resp BP Pulse Ox 97.4 F L 74 20 126/75 100 10/20/16 15:33 10/20/16 15:33 10/20/16 15:33 10/20/16 15:33 10/20/16 15:33 Intake and Output: 10/20/16 10/20/16 06:59 18:59 Intake Total 100 Output Total 1350 Balance -1350 100 - Medications Medications: Current Medications Acetaminophen (Tylenol 325mg Tab) 650 mg PO Q6 PRN PRN Reason: Pain, moderate (4-7) Last Admin: 10/19/16 12:54 Dose: 650 mg Acetylcysteine (Acetylcysteine 20%) 4 ml INH Q6H [facility] Last Admin: 10/20/16 13:10 Dose: 4 ml Albuterol Sulfate (Albuterol 0.083% Inhal Rosie (2.5 Mg/3 Ml) Ud) 2.5 mg INH RQ6 [facility] Last Admin: 10/20/16 13:10 Dose: 2.5 mg Albuterol/Ipratropium (Duoneb 3 Mg/0.5 Mg (3 Ml) Ud) 3 ml INH RQ6 [facility] Last Admin: 10/20/16 02:09 Dose: Not Given Alprazolam (Xanax) 0.5 mg PO HS PRN PRN Reason: Anxiety Last Admin: 10/18/16 23:45 Dose: 0.5 mg Amiodarone HCl (Cordarone) 200 mg PO DAILY [facility] Last Admin: 10/20/16 13:23 Dose: 200 mg Amlodipine Besylate (Norvasc) 5 mg PO DAILY [facility] Last Admin: 10/20/16 10:27 Dose: 5 mg Clonidine HCl (Catapres-Tts3 0.3 Mg/24 Hr) 1 patch TD QWK [facility] Last Admin: 10/17/16 11:36 Dose: 1 patch Enoxaparin Sodium (Lovenox) 30 mg SC DAILY [facility] Last Admin: 10/20/16 10:25 Dose: 30 mg Famotidine (Pepcid) 20 mg IVP DAILY [facility] Last Admin: 10/20/16 10:25 Dose: 20 mg Furosemide (Lasix) 20 mg IVP DAILY [facility] Last Admin: 10/20/16 10:25 Dose: 20 mg Guaifenesin (Robitussin) 100 mg PO Q6H [facility] Last Admin: 10/20/16 14:00 Dose: 100 mg Tigecycline 50 mg/ Sodium (Chloride) 100 mls @ 100 mls/hr IVPB Q12H [facility] Last Admin: 10/20/16 16:28 Dose: 100 mls/hr Lactulose (Enulose) 20 gm PO HS [facility] Last Admin: 10/19/16 21:22 Dose: 20 gm Levothyroxine Sodium (Synthroid) 150 mcg PO DAILY@0630 [facility] Last Admin: 10/20/16 06:45 Dose: 150 mcg Losartan Potassium (Cozaar) 100 mg PO DAILY [facility] Last Admin: 10/20/16 10:25 Dose: 100 mg Mirtazapine (Remeron) 15 mg PO HS [facility] Last Admin: 10/19/16 21:22 Dose: 15 mg Ondansetron HCl (Zofran Inj) 4 mg IVP Q8 PRN PRN Reason: Nausea Last Admin: 10/20/16 01:49 Dose: 4 mg Raloxifene HCl (Evista) 60 mg PO DAILY [facility] Last Admin: 10/20/16 10:26 Dose: 60 mg Saccharomyces Boulardii (Florastor) 250 mg PO DAILY [facility] Last Admin: 10/20/16 10:26 Dose: 250 mg Sucralfate (Carafate Oral Susp) 1 gm PO AC [facility] Last Admin: 10/20/16 16:30 Dose: Not Given - Labs Labs: 10/19/16 08:23 10/19/16 08:23
[2016-10-20] MEDS ORDERED: guaiFENesin 100 mg/5 ml Syrup UD PO PRN (19:01)
--- NOTE | 2016-10-20 19:10 | CP.PCM.PN ---
Subjective - Date & Time of Evaluation Date of Evaluation: 10/20/16 Time of Evaluation: 19:08 - Subjective Subjective: Pt's' marie catheter discontinued today to allow pt move mobility and increase ability to mvoe around prior to discharge. Pt getting IV abx and per conversation with ID, needs at least another week of IV Tygacil. Pt had recovered nicely from her pneumonia on this abx, and discontinuation prematurely may be detrimental to pt and result in pt bouncing back to acute care setting. So far, no adverse events noted, and hypoxemia appears to have resolved. Pt tolerating O2 by [place] now with O2 holding. Discussed with pt GUILLERMO and she is currently refusing to go at this time. The option she wants is to have private help a few hours a day to help with chores and ADLs. But so far, pt is unable to do this as she is hospitalized. Strongly advised pt that she is no condition to go home and at the very least she needs to go to [facility]. She also needs to up her eating as she does not eat enough to sustain herself. Pt understands all this and continues to argue. Objective - Vital Signs/Intake and Output Vital Signs (last 24 hours): Temp Pulse Resp BP Pulse Ox 97.4 F L 67 20 126/75 100 10/20/16 15:33 10/20/16 18:32 10/20/16 15:33 10/20/16 15:33 10/20/16 15:33 Intake and Output: 10/20/16 10/21/16 18:59 06:59 Intake Total 100 Balance 100 - Medications Medications: Current Medications Acetaminophen (Tylenol 325mg Tab) 650 mg PO Q6 PRN PRN Reason: Pain, moderate (4-7) Last Admin: 10/19/16 12:54 Dose: 650 mg Acetylcysteine (Acetylcysteine 20%) 4 ml INH Q6H [facility] Last Admin: 10/20/16 13:10 Dose: 4 ml Albuterol Sulfate (Albuterol 0.083% Inhal Rosie (2.5 Mg/3 Ml) Ud) 2.5 mg INH RQ6 [facility] Last Admin: 10/20/16 13:10 Dose: 2.5 mg Albuterol/Ipratropium (Duoneb 3 Mg/0.5 Mg (3 Ml) Ud) 3 ml INH RQ6 [facility] Last Admin: 10/20/16 02:09 Dose: Not Given Alprazolam (Xanax) 0.5 mg PO HS PRN PRN Reason: Anxiety Last Admin: 10/18/16 23:45 Dose: 0.5 mg Amiodarone HCl (Cordarone) 200 mg PO DAILY [facility] Last Admin: 10/20/16 13:23 Dose: 200 mg Amlodipine Besylate (Norvasc) 5 mg PO DAILY [facility] Last Admin: 10/20/16 10:27 Dose: 5 mg Clonidine HCl (Catapres-Tts3 0.3 Mg/24 Hr) 1 patch TD QWK [facility] Last Admin: 10/17/16 11:36 Dose: 1 patch Dronabinol (Marinol) 2.5 mg PO BID [facility] Enoxaparin Sodium (Lovenox) 30 mg SC DAILY [facility] Last Admin: 10/20/16 10:25 Dose: 30 mg Famotidine (Pepcid) 20 mg IVP DAILY [facility] Last Admin: 10/20/16 10:25 Dose: 20 mg Furosemide (Lasix) 20 mg IVP DAILY [facility] Last Admin: 10/20/16 10:25 Dose: 20 mg Guaifenesin (Robitussin) 100 mg PO Q6H PRN PRN Reason: Cough Tigecycline 50 mg/ Sodium (Chloride) 100 mls @ 100 mls/hr IVPB Q12H [facility] Last Admin: 10/20/16 16:28 Dose: 100 mls/hr Lactulose (Enulose) 20 gm PO HS [facility] Last Admin: 10/19/16 21:22 Dose: 20 gm Levothyroxine Sodium (Synthroid) 150 mcg PO DAILY@0630 [facility] Last Admin: 10/20/16 06:45 Dose: 150 mcg Losartan Potassium (Cozaar) 100 mg PO DAILY [facility] Last Admin: 10/20/16 10:25 Dose: 100 mg Mirtazapine (Remeron) 15 mg PO HS [facility] Ondansetron HCl (Zofran Inj) 4 mg IVP Q8 PRN PRN Reason: Nausea Last Admin: 10/20/16 01:49 Dose: 4 mg Raloxifene HCl (Evista) 60 mg PO DAILY [facility] Last Admin: 10/20/16 10:26 Dose: 60 mg Saccharomyces Boulardii (Florastor) 250 mg PO DAILY [facility] Last Admin: 10/20/16 10:26 Dose: 250 mg Sucralfate (Carafate Oral Susp) 1 gm PO AC [facility] Last Admin: 10/20/16 16:30 Dose: Not Given - Labs Labs: 10/19/16 08:23 10/19/16 08:23 - Constitutional Appears: No Acute Distress - Head Exam Head Exam: ATRAUMATIC, NORMAL INSPECTION, NORMOCEPHALIC - Eye Exam Eye Exam: Normal appearance Pupil Exam: NORMAL ACCOMODATION - ENT Exam ENT Exam: Mucous Membranes Moist, Normal Exam - Neck Exam Neck Exam: Normal Inspection - Respiratory Exam Respiratory Exam: Decreased Breath Sounds, Clear to Ausculation Bilateral, NORMAL BREATHING PATTERN - Cardiovascular Exam Cardiovascular Exam: REGULAR RHYTHM - GI/Abdominal Exam GI & Abdominal Exam: Soft, Normal Bowel Sounds - Rectal Exam Rectal Exam: Deferred - Back Exam Back Exam: NORMAL INSPECTION - Neurological Exam Neurological Exam: Abnormal Gait, Alert, Awake Neuro motor strength exam: Left Upper Extremity: 2/1, Right Upper Extremity: 2/1 , Left Lower Extremity: 2/1, Right Lower Extremity: 2/1 - Psychiatric Exam Psychiatric exam: Normal Affect, Normal Mood Additional comments: feels better; argumentative - Skin Skin Exam: Dry, Intact, Normal Color, Warm Assessment and Plan (1) CHF (congestive heart failure), NYHA class III Assessment & Plan: improving Status: Chronic (2) Pneumonia Assessment & Plan: improving , for CXR in AM; PICC line install on Saturday if possible Status: Acute (3) Weakness generalized Status: Chronic (4) Delirium due to another medical condition Status: Resolved (5) 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
[2016-10-21 00:20] VITALS: RESP 20
[2016-10-21] MEDS: Sucralfate 1 gm/10 ml Oral Susp UD PO SCH ×3 (06:34→16:20)
[2016-10-21] MEDS: Levothyroxine 150 MCG TAB PO SCH (06:35)
[2016-10-21] MEDS: Albuterol 0.083% Inhal Sol (2.5 mg/3 mL) UD INH SCH ×2 (07:56→15:00)
[2016-10-21] MEDS: Acetylcysteine 20% Inhal Soln (4ml) INH SCH ×3 (07:56→19:47)
[2016-10-21] MEDS: Albuterol-Ipratrop 3 mg / 0.5 (3 ml) UD INH SCH ×3 (07:56→19:47)
[2016-10-21 08:47] LABS: BASO # 0.2 K/uL (0.0-0.2); BASO % 0.8 % (0.0-2.0); EOS # 0.1 K/uL (0.0-0.7); EOS % 0.5 % (0.0-4.0); HEMOGLOBIN 13.7 g/dL (11.0-16.0); LYMPH # 2.7 K/uL (1.0-4.3); LYMPH % 14.5 % (20.0-40.0); MEAN CELL VOLUME 92.2 fL (81.0-99.0); MEAN CORPUSCULAR HEMOGLOBIN 29.7 pg (27.0-31.0); MEAN CORPUSCULAR HGB CONC 32.2 g/dL (33.0-37.0); MONO # 1.5 K/uL (0.0-0.8); NEUT % 76.2 % (50.0-75.0); NRBC % 0.1 % (0.0-2.0); RBC 4.63 Mil/uL (3.80-5.20); RED CELL DISTRIBUTION WIDTH 14.9 % (11.5-14.5); WHITE BLOOD COUNT 18.4 K/uL (4.8-10.8)
[2016-10-21 08:57] LABS: CALCIUM 8.4 mg/dl (8.6-10.4)
[2016-10-21] MEDS: Potassium Chl 20 mEq in D5-NS 1,000 ML IV SCH (10:33)
[2016-10-21] MEDS: Enoxaparin 30 mg Syringe SC SCH (11:25)
[2016-10-21] MEDS: Saccharomyces Boulardi 250 mg Cap PO SCH (11:26)
--- NOTE | 2016-10-21 11:52 | RAD ---
HISTORY: monitor response to pneumonia and CHF tx COMPARISON: Comparison is made to 10/19/2016 FINDINGS: LUNGS: No evidence of new infiltrate or consolidation in the lungs. Hyperinflation of the lungs suggestive of emphysema is again noted. PLEURA: No significant pleural effusion identified, no pneumothorax apparent. CARDIOVASCULAR: Normal. OSSEOUS STRUCTURES: No significant abnormalities. VISUALIZED UPPER ABDOMEN: Normal. OTHER FINDINGS: None. IMPRESSION: No evidence of significant interval change.
--- NOTE | 2016-10-21 16:09 | CP.PCM.PN ---
Subjective - Date & Time of Evaluation Date of Evaluation: 10/21/16 Time of Evaluation: 09:00 - Subjective Subjective: slow progress rx renewed cont iv rx as per Dr Gorman Objective - Vital Signs/Intake and Output Vital Signs (last 24 hours): Temp Pulse Resp BP Pulse Ox 97.5 F L 68 20 106/71 100 10/21/16 15:51 10/21/16 15:51 10/21/16 15:51 10/21/16 15:51 10/21/16 15:51 Intake and Output: 10/21/16 10/21/16 06:59 18:59 Intake Total 100 Balance 100 - Medications Medications: Current Medications Acetaminophen (Tylenol 325mg Tab) 650 mg PO Q6 PRN PRN Reason: Pain, moderate (4-7) Last Admin: 10/21/16 00:45 Dose: 650 mg Acetylcysteine (Acetylcysteine 20%) 4 ml INH Q6H [facility] Last Admin: 10/21/16 12:45 Dose: Not Given Albuterol Sulfate (Albuterol 0.083% Inhal Rosie (2.5 Mg/3 Ml) Ud) 2.5 mg INH RQ6 [facility] Last Admin: 10/21/16 15:00 Dose: 2.5 mg Albuterol/Ipratropium (Duoneb 3 Mg/0.5 Mg (3 Ml) Ud) 3 ml INH RQ6 [facility] Last Admin: 10/21/16 15:00 Dose: 3 ml Alprazolam (Xanax) 0.5 mg PO HS PRN PRN Reason: Anxiety Last Admin: 10/18/16 23:45 Dose: 0.5 mg Amiodarone HCl (Cordarone) 200 mg PO DAILY [facility] Last Admin: 10/21/16 11:26 Dose: 200 mg Clonidine HCl (Catapres-Tts3 0.3 Mg/24 Hr) 1 patch TD QWK [facility] Last Admin: 10/17/16 11:36 Dose: 1 patch Dronabinol (Marinol) 2.5 mg PO BID [facility] Last Admin: 10/21/16 11:26 Dose: 2.5 mg Enoxaparin Sodium (Lovenox) 30 mg SC DAILY [facility] Last Admin: 10/21/16 11:25 Dose: 30 mg Famotidine (Pepcid) 20 mg IVP DAILY [facility] Last Admin: 10/21/16 11:26 Dose: 20 mg Guaifenesin (Robitussin) 100 mg PO Q6H PRN PRN Reason: Cough Tigecycline 50 mg/ Sodium (Chloride) 100 mls @ 100 mls/hr IVPB Q12H [facility] Last Admin: 10/21/16 05:44 Dose: 100 mls/hr Potassium Chloride/Dextrose/Sod Cl (Potassium Chl 20 Meq In D5-Ns) 1,000 mls @ 60 mls/hr IV .[id number] [facility] Last Admin: 10/21/16 10:33 Dose: 60 mls/hr Lactulose (Enulose) 20 gm PO HS [facility] Last Admin: 10/20/16 21:43 Dose: 20 gm Levothyroxine Sodium (Synthroid) 150 mcg PO DAILY@0630 [facility] Last Admin: 10/21/16 06:35 Dose: 150 mcg Losartan Potassium (Cozaar) 100 mg PO DAILY [facility] Last Admin: 10/21/16 11:25 Dose: 100 mg Mirtazapine (Remeron) 15 mg PO [facility] Last Admin: 10/20/16 21:43 Dose: 15 mg Ondansetron HCl (Zofran Inj) 4 mg IVP Q8 PRN PRN Reason: Nausea Last Admin: 10/21/16 14:32 Dose: 4 mg Raloxifene HCl (Evista) 60 mg PO DAILY [facility] Last Admin: 10/21/16 11:25 Dose: 60 mg Saccharomyces Boulardii (Florastor) 250 mg PO DAILY [facility] Last Admin: 10/21/16 11:26 Dose: 250 mg Sucralfate (Carafate Oral Susp) 1 gm PO AC [facility] Last Admin: 10/21/16 11:26 Dose: 1 gm - Labs Labs: 10/21/16 08:35 10/21/16 08:35 - Constitutional Appears: Non-toxic, Chronically Ill - Head Exam Head Exam: NORMOCEPHALIC - Eye Exam Eye Exam: PERRL. absent: Scleral icterus - ENT Exam ENT Exam: Mucous Membranes Dry - Neck Exam Neck Exam: absent: Lymphadenopathy - Respiratory Exam Respiratory Exam: Decreased Breath Sounds - Cardiovascular Exam Cardiovascular Exam: REGULAR RHYTHM - GI/Abdominal Exam GI & Abdominal Exam: Distended, Soft. absent: Tenderness - Rectal Exam Rectal Exam: Deferred - Exam Exam: NORMAL INSPECTION - Extremities Exam Extremities Exam: absent: Pedal Edema - Back Exam Back Exam: absent: CVA tenderness (L), CVA tenderness (R) - Neurological Exam Neurological Exam: Alert, Awake, Oriented x3 Assessment and Plan (1) Weakness generalized Status: Chronic (2) CHF (congestive heart failure), NYHA class III Status: Chronic (3) COPD (chronic obstructive pulmonary disease) Status: Acute (4) Pneumonia Status: Acute
--- NOTE | 2016-10-21 16:47 | PN ---
This is an 81-year-old female with recent history of acute hypercalcemic crisis with malignant hypercalcemia and calcium levels as high as 14.6 mg/dL and is now being followed closely for metabolic management. She has been receiving IV antibiotics for management of acute pneumonitis with underlying hypoxemia, which has improved clinically and hemodynamically as noted. Moreover, she also has remarkably improved metabolically with a normalization of calcium levels as noted. Her latest chemistry shows a BUN of 71, sodium 143, potassium 3.7, chloride 101, CO2 of 29, glucose 112, creatinine 1.6. The latest calcium now is 8.7 mg/dL. Her pro-BNP is 20,000, as noted, and the albumin level of 3.0 and a corrected calcium of 9.7 mg/dL. So, at this time, we will continue the present medical management as ordered. We will also obtained serial chemistries and supplement accordingly as needed. We will follow. Thais Wiggins MD
--- NOTE | 2016-10-21 23:47 | CP.PCM.PN ---
Subjective - Date & Time of Evaluation Date of Evaluation: 10/21/16 Time of Evaluation: 16:20 - Subjective Subjective: Called by nurse this AM when pt had a large loose BM after many days of no defecation. Ordered C. diff analysis for completion with negative results. Pt also had sudden increase in BUN and creatinine even with decrease in diuretic for CHF, prob from pt's inadequate intake of fluids. Started on IVF again after it was discontinued 2 days ago. Objective - Vital Signs/Intake and Output Vital Signs (last 24 hours): Temp Pulse Resp BP Pulse Ox 97.4 F L 75 20 108/62 98 10/21/16 19:00 10/21/16 22:41 10/21/16 19:00 10/21/16 22:41 10/21/16 19:00 Intake and Output: 10/21/16 10/22/16 18:59 06:59 Intake Total 200 710 Balance 200 710 - Medications Medications: Current Medications Acetaminophen (Tylenol 325mg Tab) 650 mg PO Q6 PRN PRN Reason: Pain, moderate (4-7) Last Admin: 10/21/16 00:45 Dose: 650 mg Acetylcysteine (Acetylcysteine 20%) 4 ml INH Q6H [facility] Last Admin: 10/21/16 19:47 Dose: 4 ml Albuterol Sulfate (Albuterol 0.083% Inhal Rosie (2.5 Mg/3 Ml) Ud) 2.5 mg INH RQ6 [facility] Last Admin: 10/21/16 15:00 Dose: 2.5 mg Albuterol/Ipratropium (Duoneb 3 Mg/0.5 Mg (3 Ml) Ud) 3 ml INH RQ6 [facility] Last Admin: 10/21/16 19:47 Dose: 3 ml Alprazolam (Xanax) 0.5 mg PO HS PRN PRN Reason: Anxiety Last Admin: 10/18/16 23:45 Dose: 0.5 mg Amiodarone HCl (Cordarone) 200 mg PO DAILY [facility] Last Admin: 10/21/16 11:26 Dose: 200 mg Clonidine HCl (Catapres-Tts3 0.3 Mg/24 Hr) 1 patch TD QWK [facility] Last Admin: 10/17/16 11:36 Dose: 1 patch Dronabinol (Marinol) 2.5 mg PO BID [facility] Last Admin: 10/21/16 17:40 Dose: 2.5 mg Enoxaparin Sodium (Lovenox) 30 mg SC DAILY [facility] Last Admin: 10/21/16 11:25 Dose: 30 mg Famotidine (Pepcid) 20 mg IVP DAILY [facility] Last Admin: 10/21/16 11:26 Dose: 20 mg Guaifenesin (Robitussin) 100 mg PO Q6H PRN PRN Reason: Cough Tigecycline 50 mg/ Sodium (Chloride) 100 mls @ 100 mls/hr IVPB Q12H [facility] Last Admin: 10/21/16 16:21 Dose: 100 mls/hr Potassium Chloride/Dextrose/Sod Cl (Potassium Chl 20 Meq In D5-Ns) 1,000 mls @ 60 mls/hr IV .[id number] [facility] Last Admin: 10/21/16 10:33 Dose: 60 mls/hr Lactulose (Enulose) 20 gm PO HS [facility] Last Admin: 10/21/16 21:38 Dose: Not Given Levothyroxine Sodium (Synthroid) 150 mcg PO DAILY@0630 [facility] Last Admin: 10/21/16 06:35 Dose: 150 mcg Losartan Potassium (Cozaar) 100 mg PO DAILY [facility] Last Admin: 10/21/16 11:25 Dose: 100 mg Mirtazapine (Remeron) 15 mg PO [facility] Last Admin: 10/21/16 21:36 Dose: 15 mg Ondansetron HCl (Zofran Inj) 4 mg IVP Q8 PRN PRN Reason: Nausea Last Admin: 10/21/16 14:32 Dose: 4 mg Raloxifene HCl (Evista) 60 mg PO DAILY [facility] Last Admin: 10/21/16 11:25 Dose: 60 mg Saccharomyces Boulardii (Florastor) 250 mg PO DAILY [facility] Last Admin: 10/21/16 11:26 Dose: 250 mg Sucralfate (Carafate Oral Susp) 1 gm PO AC [facility] Last Admin: 10/21/16 16:20 Dose: 1 gm - Labs Labs: 10/21/16 08:35 10/21/16 08:35 - Constitutional Appears: No Acute Distress - Head Exam Head Exam: NORMAL INSPECTION, NORMOCEPHALIC - Eye Exam Eye Exam: Normal appearance Pupil Exam: NORMAL ACCOMODATION - ENT Exam ENT Exam: Mucous Membranes Moist, Normal Exam - Neck Exam Neck Exam: Normal Inspection - Respiratory Exam Respiratory Exam: Clear to Ausculation Bilateral, NORMAL BREATHING PATTERN - Cardiovascular Exam Cardiovascular Exam: REGULAR RHYTHM, +S1, +S2 - GI/Abdominal Exam GI & Abdominal Exam: Soft, Normal Bowel Sounds - Rectal Exam Rectal Exam: Deferred - Extremities Exam Extremities Exam: Normal Inspection - Back Exam Back Exam: NORMAL INSPECTION - Neurological Exam Neurological Exam: Abnormal Gait (generally weak, unable to support weight for long) Neuro motor strength exam: Left Upper Extremity: 2/1, Right Upper Extremity: 2/1 , Left Lower Extremity: 2/1, Right Lower Extremity: 2/1 - Psychiatric Exam Psychiatric exam: Normal Affect, Normal Mood - Skin Skin Exam: Dry, Intact, Normal Color Assessment and Plan (1) CHF (congestive heart failure), NYHA class III Assessment & Plan: improving Status: Chronic (2) Pneumonia Assessment & Plan: no new infiltrates, improved significantly from mid week last week Status: Acute (3) Weakness generalized Assessment & Plan: for GUILLERMO, prob [place] or [place], if pt consents Status: Chronic (4) Delirium due to another medical condition Status: Resolved (5) 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
[2016-10-22] MEDS: Acetylcysteine 20% Inhal Soln (4ml) INH SCH ×4 (02:17→20:39)
[2016-10-22] MEDS: Albuterol 0.083% Inhal Sol (2.5 mg/3 mL) UD INH SCH ×4 (02:18→20:39)
[2016-10-22] MEDS: Albuterol-Ipratrop 3 mg / 0.5 (3 ml) UD INH SCH ×4 (02:18→20:39)
[2016-10-22] MEDS: Potassium Chl 20 mEq in D5-NS 1,000 ML IV SCH (02:59)
[2016-10-22] MEDS: Levothyroxine 150 MCG TAB PO SCH (06:35)
[2016-10-22] MEDS: Sucralfate 1 gm/10 ml Oral Susp UD PO SCH ×2 (06:35→17:18)
--- NOTE | 2016-10-22 07:06 | PN ---
ENDOCRINOLOGY FOLLOWUP NOTE ROOM: 556. 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 Her oral intake remains quite variable at this time as noted. Her latest chemistry showed a BUN of 101, sodium 143, potassium 4.1, chloride 101, CO2 of 28, glucose 83, and creatinine 1.9. She also has supervening congestive heart failure with elevated proBNP levels, but has improved otherwise over the last few days and the latest level is 8470 as noted. Her calcium level is down now to 8.4 mg/dL. So, at this time, we will continue the present medical management and obtain serum chemistries and supplement accordingly as needed. We will follow the patient. Thais Wiggins MD
[2016-10-22 07:59] LABS: BASO # 0.2 K/uL (0.0-0.2); BASO % 0.8 % (0.0-2.0); EOS # 0.1 K/uL (0.0-0.7); EOS % 0.5 % (0.0-4.0); HEMOGLOBIN 13.9 g/dL (11.0-16.0); LYMPH % 9.5 % (20.0-40.0); MEAN CELL VOLUME 92.2 fL (81.0-99.0); MEAN CORPUSCULAR HEMOGLOBIN 29.3 pg (27.0-31.0); MEAN CORPUSCULAR HGB CONC 31.8 g/dL (33.0-37.0); MEAN PLATELET VOLUME 10.9 fL (7.2-11.7); MONO # 1.3 K/uL (0.0-0.8); MONO % 6.3 % (0.0-10.0); NEUT # 17.6 K/uL (1.8-7.0); NEUT % 82.9 % (50.0-75.0); NRBC % 0.1 % (0.0-2.0); PLATELET COUNT 233 K/uL (130-400); RBC 4.76 Mil/uL (3.80-5.20); WHITE BLOOD COUNT 21.2 K/uL (4.8-10.8)
[2016-10-22 08:05] LABS: ALBUMIN 2.6 g/dL (3.5-5.0)
[2016-10-22 08:10] LABS: CALCIUM 8.6 mg/dl (8.6-10.4)
[2016-10-22 08:14] LABS: ALB/GLOB RATIO 1.2 (1.0-2.1)
[2016-10-22 09:06] LABS: LYMPHOCYTE 9 % (20-40); MONOCYTE 5 % (0-10); NEUTROPHIL 86 % (50-75); TOTAL CELLS COUNTED 100
[2016-10-22 09:07] LABS: PLATELET ESTIMATE NORMAL (NORMAL)
[2016-10-22] MEDS: Enoxaparin 30 mg Syringe SC SCH (10:44)
[2016-10-22] MEDS: Saccharomyces Boulardi 250 mg Cap PO SCH (10:44)
[2016-10-22] MEDS: Dextrose 5%/0.9% NS 1,000 ML IV SCH (10:45)
[2016-10-22 12:08] LABS: ABG ALLEN TEST POS; ARTERIAL BLOOD GAS HCO3 25.6 mmol/L (21-28); ARTERIAL BLOOD GAS HEMOGLOBIN 13.1 g/dL (11.7-17.4); ARTERIAL BLOOD GAS O2 SAT 97.4 % (95-98); ARTERIAL BLOOD GAS PCO2 38 mm/Hg (35-45); ARTERIAL BLOOD GAS PH 7.43 (7.35-7.45); ARTERIAL BLOOD GAS PO2 76 mm/Hg (80-100); ARTERIAL BLOOD GAS TCO2 26.4 mmol/L (22-28)
[2016-10-22 17:33] LABS: FREE KAPPA SERUM 9.2 mg/L (3.3-19.4)
--- NOTE | 2016-10-22 17:46 | CP.PCM.PN ---
Subjective - Date & Time of Evaluation Date of Evaluation: 10/22/16 Time of Evaluation: 17:46 Objective - Vital Signs/Intake and Output Vital Signs (last 24 hours): Temp Pulse Resp BP Pulse Ox 97.5 F L 66 20 145/74 97 10/22/16 15:33 10/22/16 15:33 10/22/16 15:33 10/22/16 15:33 10/22/16 15:33 Intake and Output: 10/22/16 10/22/16 06:59 18:59 Intake Total 710 Balance 710 - Medications Medications: Current Medications Acetaminophen (Tylenol 325mg Tab) 650 mg PO Q6 PRN PRN Reason: Pain, moderate (4-7) Last Admin: 10/21/16 00:45 Dose: 650 mg Acetylcysteine (Acetylcysteine 20%) 4 ml INH Q6H [facility] Last Admin: 10/22/16 07:30 Dose: Not Given Albuterol Sulfate (Albuterol 0.083% Inhal Rosie (2.5 Mg/3 Ml) Ud) 2.5 mg INH RQ6 [facility] Last Admin: 10/22/16 07:30 Dose: Not Given Albuterol/Ipratropium (Duoneb 3 Mg/0.5 Mg (3 Ml) Ud) 3 ml INH RQ6 [facility] Last Admin: 10/22/16 07:30 Dose: 3 ml Alprazolam (Xanax) 0.5 mg PO HS PRN PRN Reason: Anxiety Last Admin: 10/18/16 23:45 Dose: 0.5 mg Amiodarone HCl (Cordarone) 200 mg PO DAILY [facility] Last Admin: 10/22/16 10:55 Dose: Not Given Clonidine HCl (Catapres-Tts3 0.3 Mg/24 Hr) 1 patch TD QWK [facility] Last Admin: 10/17/16 11:36 Dose: 1 patch Dronabinol (Marinol) 2.5 mg PO BID [facility] Last Admin: 10/22/16 17:18 Dose: 2.5 mg Enoxaparin Sodium (Lovenox) 30 mg SC DAILY [facility] Last Admin: 10/22/16 10:44 Dose: 30 mg Famotidine (Pepcid) 20 mg IVP DAILY [facility] Last Admin: 10/22/16 10:44 Dose: 20 mg Guaifenesin (Robitussin) 100 mg PO Q6H PRN PRN Reason: Cough Tigecycline 50 mg/ Sodium (Chloride) 100 mls @ 100 mls/hr IVPB Q12H [facility] Last Admin: 10/22/16 17:18 Dose: 100 mls/hr Dextrose/Sodium Chloride (Dextrose 5%/0.9% Ns 1000 Ml) 1,000 mls @ 60 mls/hr IV .[id number] [facility] Last Admin: 10/22/16 10:45 Dose: 60 mls/hr Lactulose (Enulose) 20 gm PO HS [facility] Last Admin: 10/21/16 21:38 Dose: Not Given Levothyroxine Sodium (Synthroid) 150 mcg PO DAILY@0630 [facility] Last Admin: 10/22/16 06:35 Dose: 150 mcg Losartan Potassium (Cozaar) 100 mg PO DAILY [facility] Last Admin: 10/22/16 10:54 Dose: Not Given Mirtazapine (Remeron) 15 mg PO [facility] Last Admin: 10/21/16 21:36 Dose: 15 mg Ondansetron HCl (Zofran Inj) 4 mg IVP Q8 PRN PRN Reason: Nausea Last Admin: 10/21/16 14:32 Dose: 4 mg Raloxifene HCl (Evista) 60 mg PO DAILY [facility] Last Admin: 10/22/16 10:55 Dose: Not Given Saccharomyces Boulardii (Florastor) 250 mg PO DAILY [facility] Last Admin: 10/22/16 10:44 Dose: 250 mg Sucralfate (Carafate Oral Susp) 1 gm PO AC [facility] Last Admin: 10/22/16 17:18 Dose: 1 gm - Labs Labs: 10/22/16 07:46 10/22/16 07:46
--- NOTE | 2016-10-22 17:57 | CP.PCM.PN ---
Subjective - Date & Time of Evaluation Date of Evaluation: 10/22/16 Time of Evaluation: 17:47 - Subjective Subjective: Patient looking better, more awake, answering questions appropriately, able to move extremities, getting physical therapy. Labs reviewed Objective - Vital Signs/Intake and Output Vital Signs (last 24 hours): Temp Pulse Resp BP Pulse Ox 97.5 F L 66 20 145/74 97 10/22/16 15:33 10/22/16 15:33 10/22/16 15:33 10/22/16 15:33 10/22/16 15:33 Intake and Output: 10/22/16 10/22/16 06:59 18:59 Intake Total 710 Balance 710 - Medications Medications: Current Medications Acetaminophen (Tylenol 325mg Tab) 650 mg PO Q6 PRN PRN Reason: Pain, moderate (4-7) Last Admin: 10/21/16 00:45 Dose: 650 mg Acetylcysteine (Acetylcysteine 20%) 4 ml INH Q6H [facility] Last Admin: 10/22/16 07:30 Dose: Not Given Albuterol Sulfate (Albuterol 0.083% Inhal Rosie (2.5 Mg/3 Ml) Ud) 2.5 mg INH RQ6 [facility] Last Admin: 10/22/16 07:30 Dose: Not Given Albuterol/Ipratropium (Duoneb 3 Mg/0.5 Mg (3 Ml) Ud) 3 ml INH RQ6 [facility] Last Admin: 10/22/16 07:30 Dose: 3 ml Alprazolam (Xanax) 0.5 mg PO HS PRN PRN Reason: Anxiety Last Admin: 10/18/16 23:45 Dose: 0.5 mg Amiodarone HCl (Cordarone) 200 mg PO DAILY [facility] Last Admin: 10/22/16 10:55 Dose: Not Given Clonidine HCl (Catapres-Tts3 0.3 Mg/24 Hr) 1 patch TD QWK [facility] Last Admin: 10/17/16 11:36 Dose: 1 patch Dronabinol (Marinol) 2.5 mg PO BID [facility] Last Admin: 10/22/16 17:18 Dose: 2.5 mg Enoxaparin Sodium (Lovenox) 30 mg SC DAILY [facility] Last Admin: 10/22/16 10:44 Dose: 30 mg Famotidine (Pepcid) 20 mg IVP DAILY [facility] Last Admin: 10/22/16 10:44 Dose: 20 mg Guaifenesin (Robitussin) 100 mg PO Q6H PRN PRN Reason: Cough Tigecycline 50 mg/ Sodium (Chloride) 100 mls @ 100 mls/hr IVPB Q12H [facility] Last Admin: 10/22/16 17:18 Dose: 100 mls/hr Dextrose/Sodium Chloride (Dextrose 5%/0.9% Ns 1000 Ml) 1,000 mls @ 60 mls/hr IV .[id number] [facility] Last Admin: 10/22/16 10:45 Dose: 60 mls/hr Lactulose (Enulose) 20 gm PO HS [facility] Last Admin: 10/21/16 21:38 Dose: Not Given Levothyroxine Sodium (Synthroid) 150 mcg PO DAILY@0630 [facility] Last Admin: 10/22/16 06:35 Dose: 150 mcg Losartan Potassium (Cozaar) 100 mg PO DAILY [facility] Last Admin: 10/22/16 10:54 Dose: Not Given Mirtazapine (Remeron) 15 mg PO HS [facility] Last Admin: 10/21/16 21:36 Dose: 15 mg Ondansetron HCl (Zofran Inj) 4 mg IVP Q8 PRN PRN Reason: Nausea Last Admin: 10/21/16 14:32 Dose: 4 mg Raloxifene HCl (Evista) 60 mg PO DAILY [facility] Last Admin: 10/22/16 10:55 Dose: Not Given Saccharomyces Boulardii (Florastor) 250 mg PO DAILY [facility] Last Admin: 10/22/16 10:44 Dose: 250 mg Sucralfate (Carafate Oral Susp) 1 gm PO AC [facility] Last Admin: 10/22/16 17:18 Dose: 1 gm - Labs Labs: 10/22/16 07:46 10/22/16 07:46 Assessment and Plan (1) Hypercalcemia of malignancy Assessment & Plan: 81 yo woman with new hypercalcemia, 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 Patient will need work up completed for myeloma to r/o light chain disease. For now will order po decadron and complete work up ie, 24 hour urine, serum immunoglobulin levels. Have left message with daughter regarding abnormal lab results. Status: Acute
--- NOTE | 2016-10-22 19:22 | CP.PCM.PN ---
Subjective - Date & Time of Evaluation Date of Evaluation: 10/22/16 Time of Evaluation: 19:15 - Subjective Subjective: Pt was ordered to get a PICC line this am in preparation for discharge but pt refused the procedure as well as her daughter. Pt needed another week of IV abx to complete the course of treatment but couldn not be accepted at [facility] nor sent home without a PICC line at the very least. Called daughter first thing this morning and delineated the impact of their refusal of the PICC line. Advised daughter to speak to her mother that if they wanted to go home, then pt needed a PICC line to ensure that there would be access to give IV abx. Objective - Vital Signs/Intake and Output Vital Signs (last 24 hours): Temp Pulse Resp BP Pulse Ox 97.5 F L 66 20 145/74 97 10/22/16 15:33 10/22/16 15:33 10/22/16 15:33 10/22/16 15:33 10/22/16 15:33 - Medications Medications: Current Medications Acetaminophen (Tylenol 325mg Tab) 650 mg PO Q6 PRN PRN Reason: Pain, moderate (4-7) Last Admin: 10/21/16 00:45 Dose: 650 mg Acetylcysteine (Acetylcysteine 20%) 4 ml INH Q6H [facility] Last Admin: 10/22/16 07:30 Dose: Not Given Albuterol Sulfate (Albuterol 0.083% Inhal Rosie (2.5 Mg/3 Ml) Ud) 2.5 mg INH RQ6 [facility] Last Admin: 10/22/16 07:30 Dose: Not Given Albuterol/Ipratropium (Duoneb 3 Mg/0.5 Mg (3 Ml) Ud) 3 ml INH RQ6 [facility] Last Admin: 10/22/16 07:30 Dose: 3 ml Alprazolam (Xanax) 0.5 mg PO HS PRN PRN Reason: Anxiety Last Admin: 10/18/16 23:45 Dose: 0.5 mg Amiodarone HCl (Cordarone) 200 mg PO DAILY [facility] Last Admin: 10/22/16 10:55 Dose: Not Given Clonidine HCl (Catapres-Tts3 0.3 Mg/24 Hr) 1 patch TD QWK [facility] Last Admin: 10/17/16 11:36 Dose: 1 patch Dexamethasone (Decadron) 8 mg PO BID [facility] Dronabinol (Marinol) 2.5 mg PO BID [facility] Last Admin: 10/22/16 17:18 Dose: 2.5 mg Enoxaparin Sodium (Lovenox) 30 mg SC DAILY [facility] Last Admin: 10/22/16 10:44 Dose: 30 mg Famotidine (Pepcid) 20 mg IVP DAILY [facility] Last Admin: 10/22/16 10:44 Dose: 20 mg Tigecycline 50 mg/ Sodium (Chloride) 100 mls @ 100 mls/hr IVPB Q12H [facility] Last Admin: 10/22/16 17:18 Dose: 100 mls/hr Dextrose/Sodium Chloride (Dextrose 5%/0.9% Ns 1000 Ml) 1,000 mls @ 60 mls/hr IV .[id number] [facility] Last Admin: 10/22/16 10:45 Dose: 60 mls/hr Lactulose (Enulose) 20 gm PO [facility] Last Admin: 10/21/16 21:38 Dose: Not Given Levothyroxine Sodium (Synthroid) 150 mcg PO DAILY@0630 [facility] Last Admin: 10/22/16 06:35 Dose: 150 mcg Mirtazapine (Remeron) 15 mg PO [facility] Last Admin: 10/21/16 21:36 Dose: 15 mg Ondansetron HCl (Zofran Inj) 4 mg IVP Q8 PRN PRN Reason: Nausea Last Admin: 10/21/16 14:32 Dose: 4 mg Raloxifene HCl (Evista) 60 mg PO DAILY [facility] Last Admin: 10/22/16 10:55 Dose: Not Given Saccharomyces Boulardii (Florastor) 250 mg PO DAILY [facility] Last Admin: 10/22/16 10:44 Dose: 250 mg Sucralfate (Carafate Oral Susp) 1 gm PO AC [facility] Last Admin: 10/22/16 17:18 Dose: 1 gm - Labs Labs: 10/22/16 07:46 10/22/16 07:46 - Constitutional Appears: No Acute Distress - Head Exam Head Exam: ATRAUMATIC, NORMAL INSPECTION, NORMOCEPHALIC - Eye Exam Eye Exam: Normal appearance - ENT Exam ENT Exam: Normal Exam - Neck Exam Neck Exam: Normal Inspection - Respiratory Exam Respiratory Exam: Decreased Breath Sounds, Clear to Ausculation Bilateral, NORMAL BREATHING PATTERN - Cardiovascular Exam Cardiovascular Exam: REGULAR RHYTHM - GI/Abdominal Exam GI & Abdominal Exam: Diminished Bowel Sounds - Rectal Exam Rectal Exam: Deferred - Extremities Exam Extremities Exam: Normal Capillary Refill, Normal Inspection - Back Exam Back Exam: NORMAL INSPECTION - Neurological Exam Neurological Exam: Abnormal Gait Neuro motor strength exam: Left Upper Extremity: 2, Right Upper Extremity: 2 , Left Lower Extremity: 2, Right Lower Extremity: 2 - Psychiatric Exam Psychiatric exam: Normal Affect, Normal Mood - Skin Skin Exam: Dry, Normal Color, Warm Assessment and Plan (1) CHF (congestive heart failure), NYHA class III Status: Chronic (2) Pneumonia Assessment & Plan: resolving, 6 more days of IV abx Tygacil 50 mg IV q12 hrs. Status: Resolved (3) Weakness generalized Assessment & Plan: needs extensive recuperation. 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 Advised that the only way pt may go home is to finish the course of abx so she doesnt backslide and get sick again. Pt agrees to have PICC line put in prior to d/c
[2016-10-23] MEDS: Acetylcysteine 20% Inhal Soln (4ml) INH SCH ×4 (01:18→19:12)
[2016-10-23] MEDS: Albuterol 0.083% Inhal Sol (2.5 mg/3 mL) UD INH SCH ×2 (01:18→19:12)
[2016-10-23] MEDS: Albuterol-Ipratrop 3 mg / 0.5 (3 ml) UD INH SCH ×4 (01:19→19:12)
[2016-10-23] MEDS: Dextrose 5%/0.9% NS 1,000 ML IV SCH ×2 (03:00→18:13)
--- NOTE | 2016-10-23 05:08 | PN ---
ENDO FOLLOWUP NOTE Room 557. SUBJECTIVE: This is an 81-year-old female with recent malignant hypercalcemia and has since then improved clinically and metabolically as noted thereof. She received vigorous IV hydration with a single dose of an IV bisphosphonate with Zometa given as 4 mg IV piggyback. She also has developed supervening congestive heart failure and currently being managed by Cardiology with improved hemodynamic indices. LABORATORY DATA: Her latest chemistry showed a BUN of 99, sodium 146, potassium 4.8, chloride 106, CO2 26, glucose 87, and creatinine 1.9. Her latest calcium level is 8.6 mg/dL. ASSESSMENT AND PLAN: So, at this time, we will continue the serial chemistries to be obtained and we will supplement accordingly as needed. We will follow and advise accordingly. Thais Wiggins MD
[2016-10-23] MEDS: Levothyroxine 150 MCG TAB PO SCH (05:38)
[2016-10-23 07:37] LABS: BASO # 0.1 K/uL (0.0-0.2); BASO % 0.4 % (0.0-2.0); EOS % 0.1 % (0.0-4.0); LYMPH # 1.3 K/uL (1.0-4.3); LYMPH % 7.5 % (20.0-40.0); MEAN CELL VOLUME 92.3 fL (81.0-99.0); MEAN CORPUSCULAR HEMOGLOBIN 29.7 pg (27.0-31.0); MEAN CORPUSCULAR HGB CONC 32.2 g/dL (33.0-37.0); MEAN PLATELET VOLUME 10.9 fL (7.2-11.7); MONO # 0.1 K/uL (0.0-0.8); MONO % 0.6 % (0.0-10.0); NEUT # 16.4 K/uL (1.8-7.0); NEUT % 91.4 % (50.0-75.0); PLATELET COUNT 191 K/uL (130-400); RBC 4.38 Mil/uL (3.80-5.20); RED CELL DISTRIBUTION WIDTH 14.9 % (11.5-14.5); WHITE BLOOD COUNT 17.9 K/uL (4.8-10.8)
[2016-10-23 07:56] LABS: CALCIUM 8.5 mg/dl (8.6-10.4); MAGNESIUM 2.3 mg/dL (1.6-2.3)
[2016-10-23] MEDS: Sucralfate 1 gm/10 ml Oral Susp UD PO SCH ×3 (08:10→17:12)
[2016-10-23 08:16] LABS: BANDS 3 % (0-2); LYMPHOCYTE 10 % (20-40); NEUTROPHIL 87 % (50-75); TOTAL CELLS COUNTED 100
[2016-10-23 08:17] LABS: PLATELET ESTIMATE NORMAL (NORMAL)
[2016-10-23 08:18] LABS: LARGE PLATELETS PRESENT; OVALOCYTES SLIGHT
[2016-10-23] MEDS: Saccharomyces Boulardi 250 mg Cap PO SCH ×2 (10:30→11:48)
[2016-10-23] MEDS: Enoxaparin 30 mg Syringe SC SCH ×2 (10:30→11:45)
[2016-10-23] MEDS ORDERED: Lidocaine 1% Inj (20ml) ONE (10:50)
--- NOTE | 2016-10-23 11:22 | PCM.SURG1 ---
Surgeon's Initial Post Op Note - Surgeon's Notes Surgeon: Andrea Swan MD Dna Sequencing Associate: None Type of Anesthesia: Local Pre-Operative Diagnosis: Poor venous access Operative Findings: Patent right basilic vein Post-Operative Diagnosis: Poor venous access Operation Performed: Single lumen picc placement, 32 cm. Tip in the SVC. Specimen/Specimens Removed: Poor venous access Estimated Blood Loss: EBL {In ML}: 2 Blood Products Given: N/A Drains Used: No Drains Post-Op Condition: Fair Date of Surgery/Procedure: 10/23/16 Time of Surgery/Procedure: 11:00
--- NOTE | 2016-10-23 14:06 | US ---
Date of procedure: 10/23/2016 Procedure: Ultrasound guidance for vascular access HISTORY: Infection requiring long-term IV antibiotics TECHNIQUE: Following informed consent and procedure time-out, the patient placed supine on the interventional table and the right arm prepped and draped in the usual sterile fashion. Ultrasound showed a patent and compressible basilic vein. After the skin was anesthetized with lidocaine, the basilic vein was accessed with micro micropuncture technique using ultrasound guidance. An image documenting ultrasound guidance for vascular access was permanently saved. IMPRESSION: Ultrasound guidance for vascular access for placement of PICC.
--- NOTE | 2016-10-23 14:07 | RAD ---
PROCEDURE: Date of procedure: 10/23/2016 Procedure: 1. Placement of a right arm PICC with ultrasound and fluoroscopic guidance, CPT 54759 2. PICC tip confirmation with spot radiograph and is in the superior vena cava Medications: 1 percent lidocaine Total Fluoro time: 3.1 seconds Radiation: 0.30 MGy EBL: 2 cc HISTORY: Infection requiring long-term IV antibiotics TECHNIQUE: Following informed consent and procedure time-out, the patient was placed supine on the interventional table and the right arm prepped and draped in the usual sterile fashion. Ultrasound showed a patent and compressible right basilic vein. After the skin was anesthetized with lidocaine, the basilic vein was accessed with micro micropuncture technique using ultrasound guidance. A guidewire was then advanced under fluoroscopic guidance into the superior vena cava. An image documenting ultrasound guidance for vascular access was permanently saved. The length of the single-lumen 4 Salvadorean PICC was trimmed to 32 centimeters and advanced through a peel-away sheath. The PICC was position with tip of PICC confirm a spot radiograph the superior vena cava. The PICC was secured to the patient's skin. The PICC was flushed. A biopatch and sterile dressing was applied. IMPRESSION: Placement of a single-lumen 4 Salvadorean PICC trimmed to 32 centimeters via right basilic vein. The tip of the PICC is confirmed with spot radiograph and is in the superior vena cava.
--- NOTE | 2016-10-23 22:56 | PN ---
ENDOCRINOLOGY FOLLOWUP NOTE: DATE: 10/23/2016 ROOM: 557D. SUBJECTIVE: This is an 81-year-old female with recent malignant hypercalcemia that seems to have improved clinically and metabolically as noted thereof. She also has supervening congestive heart failure and has improved hemodynamically as noted thereof. Her latest proBNP is 6530 as noted. The latest chemistry showed a BUN of 82, sodium 145, potassium 5.3, chloride 108, CO2 of 25, glucose 139, and creatinine 1.3. Her calcium level is now down to 8.5 with an albumin of 2.6 and a corrected calcium level of 8.9 mg/dL. 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 We will obtain serial chemistries and supplement accordingly as needed. We will follow. Thais Wiggins MD
--- NOTE | 2016-10-23 23:36 | CP.PCM.PN ---
Subjective - Date & Time of Evaluation Date of Evaluation: 10/23/16 Time of Evaluation: 18:25 - Subjective Subjective: Received multiple calls today from CM, nursing, and pts daughter regarding developments towards pt's discharge. For lack of adequate time toprepare a patient that goes only towardswqas time plus lack of a VNS that works out of both [facility] discharge pushed back to tomorrow. Pt to try to connect Dr. Marleni mejiaast minute collection Objective - Vital Signs/Intake and Output Vital Signs (last 24 hours): Temp Pulse Resp BP Pulse Ox 98.1 F 61 20 144/77 100 10/23/16 16:00 10/23/16 16:00 10/23/16 16:00 10/23/16 16:00 10/23/16 16:00 Intake and Output: 10/23/16 10/24/16 18:59 06:59 Intake Total 720 Balance 720 - Medications Medications: Current Medications Acetaminophen (Tylenol 325mg Tab) 650 mg PO Q6 PRN PRN Reason: Pain, moderate (4-7) Last Admin: 10/21/16 00:45 Dose: 650 mg Acetylcysteine (Acetylcysteine 20%) 4 ml INH RQ6 [facility] Last Admin: 10/23/16 19:12 Dose: 4 ml Albuterol Sulfate (Albuterol 0.083% Inhal Rosie (2.5 Mg/3 Ml) Ud) 2.5 mg INH RQ6 [facility] Last Admin: 10/23/16 19:12 Dose: Not Given Albuterol/Ipratropium (Duoneb 3 Mg/0.5 Mg (3 Ml) Ud) 3 ml INH RQ6 [facility] Last Admin: 10/23/16 19:12 Dose: 3 ml Alprazolam (Xanax) 0.5 mg PO HS PRN PRN Reason: Anxiety Last Admin: 10/18/16 23:45 Dose: 0.5 mg Amiodarone HCl (Cordarone) 200 mg PO DAILY [facility] Last Admin: 10/23/16 11:45 Dose: 200 mg Clonidine HCl (Catapres-Tts3 0.3 Mg/24 Hr) 1 patch TD QWK [facility] Last Admin: 10/17/16 11:36 Dose: 1 patch Dexamethasone (Decadron) 8 mg PO BID [facility] Last Admin: 07/18/17 17:12 Dose: 8 mg Dronabinol (Marinol) 2.5 mg PO BID [facility] Last Admin: 10/23/16 18:18 Dose: 2.5 mg Enoxaparin Sodium (Lovenox) 30 mg SC DAILY [facility] Last Admin: 10/23/16 11:45 Dose: 30 mg Famotidine (Pepcid) 20 mg IVP DAILY [facility] Last Admin: 10/23/16 11:48 Dose: 20 mg Tigecycline 50 mg/ Sodium (Chloride) 100 mls @ 100 mls/hr IVPB Q12H [facility] Last Admin: 10/23/16 17:11 Dose: 100 mls/hr Dextrose/Sodium Chloride (Dextrose 5%/0.9% Ns 1000 Ml) 1,000 mls @ 60 mls/hr IV .[id number] [facility] Last Admin: 10/23/16 18:13 Dose: Not Given Lactulose (Enulose) 20 gm PO HS [facility] Last Admin: 10/23/16 21:46 Dose: Not Given Levothyroxine Sodium (Synthroid) 150 mcg PO DAILY@0630 [facility] Last Admin: 10/23/16 05:38 Dose: 150 mcg Mirtazapine (Remeron) 15 mg PO HS [facility] Last Admin: 10/23/16 21:43 Dose: 15 mg Ondansetron HCl (Zofran Inj) 4 mg IVP Q8 PRN PRN Reason: Nausea Last Admin: 10/23/16 18:20 Dose: 4 mg Raloxifene HCl (Evista) 60 mg PO DAILY [facility] Last Admin: 10/23/16 11:47 Dose: 60 mg Saccharomyces Boulardii (Florastor) 250 mg PO DAILY [facility] Last Admin: 10/23/16 11:48 Dose: 250 mg Sucralfate (Carafate Oral Susp) 1 gm PO AC [facility] Last Admin: 10/23/16 17:12 Dose: 1 gm - Labs Labs: 10/23/16 07:21 10/23/16 07:21 Assessment and Plan (1) CHF (congestive heart failure), NYHA class III Status: Chronic (2) Pneumonia Status: Resolved (3) Weakness generalized Status: Chronic (4) Delirium due to another medical condition Status: Resolved (5) Myocardial infarction acute Status: Chronic (6) 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
[2016-10-24] MEDS: Dextrose 5%/0.9% NS 1,000 ML IV SCH (00:23)
[2016-10-24] MEDS: Albuterol-Ipratrop 3 mg / 0.5 (3 ml) UD INH SCH ×3 (01:49→13:21)
[2016-10-24] MEDS: Acetylcysteine 20% Inhal Soln (4ml) INH SCH ×3 (01:49→13:20)
[2016-10-24] MEDS: Albuterol 0.083% Inhal Sol (2.5 mg/3 mL) UD INH SCH ×3 (01:49→13:21)
[2016-10-24] MEDS: Sucralfate 1 gm/10 ml Oral Susp UD PO SCH ×2 (08:17→12:25)
[2016-10-24] MEDS: Levothyroxine 150 MCG TAB PO SCH (08:17)
[2016-10-24 08:58] VITALS: O2SAT 95
[2016-10-24] MEDS: Enoxaparin 30 mg Syringe SC SCH ×2 (09:56→10:11)
[2016-10-24] MEDS: Saccharomyces Boulardi 250 mg Cap PO SCH (09:57)
--- NOTE | 2016-10-24 14:10 | CP.PCM.PN ---
Subjective - Date & Time of Evaluation Date of Evaluation: 10/24/16 Time of Evaluation: 14:10 - Subjective Subjective: DISCUSSED D/C PLAN WITH DR. LERMA AND OK TO D/C HOME TODAY. STILL PENDING A URINE SPECIMEN RESULT FROM 10/23/[address] RUBI SHE WILL F/U OP. ALL MEDICATIONS DISCUSSED PRIOR TO D/C WITH DR. LERMA; RX GIVEN PER HIS RECOMMENDATIONS. I ALSO DISCUSSED WITH Monty RUBI THE PLAN FOR DECADRON; PER HER THE PT CAN CONTINUE DECADRON 4MG PO EVERY OTHER DAY X10 DAYS TOTAL AND SHE IS TO F/U IN HER OFFICE ON 10/29/16 AT 11 AM. [facility] TO PROVIDE IV ABX FOR ANOTHER 5 DAYS AND WILL MEET PT AT HOME TODAY. PER HEMA MCCORMACK THE PT WILL BE GOING TO DAUGHTER'S HOME. SW ARRANGED TRANSPORTATION FOR D/C. NO FURTHER ORDERS. Objective - Vital Signs/Intake and Output Vital Signs (last 24 hours): Temp Pulse Resp BP Pulse Ox 97.6 F 62 20 125/67 95 10/24/16 08:30 10/24/16 12:00 10/24/16 08:30 10/24/16 08:30 10/24/16 08:30 Intake and Output: 10/24/16 10/24/16 06:59 18:59 Intake Total 720 Balance 720 - Medications Medications: Current Medications Acetaminophen (Tylenol 325mg Tab) 650 mg PO Q6 PRN PRN Reason: Pain, moderate (4-7) Last Admin: 10/21/16 00:45 Dose: 650 mg Acetylcysteine (Acetylcysteine 20%) 4 ml INH RQ6 [facility] Last Admin: 10/24/16 13:20 Dose: 4 ml Albuterol Sulfate (Albuterol 0.083% Inhal Rosie (2.5 Mg/3 Ml) Ud) 2.5 mg INH RQ6 [facility] Last Admin: 10/24/16 13:21 Dose: Not Given Albuterol/Ipratropium (Duoneb 3 Mg/0.5 Mg (3 Ml) Ud) 3 ml INH RQ6 [facility] Last Admin: 10/24/16 13:21 Dose: 3 ml Alprazolam (Xanax) 0.5 mg PO HS PRN PRN Reason: Anxiety Last Admin: 10/18/16 23:45 Dose: 0.5 mg Amiodarone HCl (Cordarone) 200 mg PO DAILY [facility] Last Admin: 10/24/16 09:57 Dose: 200 mg Clonidine HCl (Catapres-Tts3 0.3 Mg/24 Hr) 1 patch TD QWK [facility] Last Admin: 10/24/16 09:57 Dose: 1 patch Dexamethasone (Decadron) 8 mg PO BID [facility] Last Admin: 10/24/16 09:57 Dose: 8 mg Dronabinol (Marinol) 2.5 mg PO BID [facility] Last Admin: 10/24/16 09:56 Dose: 2.5 mg Enoxaparin Sodium (Lovenox) 30 mg SC DAILY [facility] Last Admin: 10/24/16 10:11 Dose: Not Given Famotidine (Pepcid) 20 mg IVP DAILY [facility] Last Admin: 10/24/16 09:56 Dose: 20 mg Tigecycline 50 mg/ Sodium (Chloride) 100 mls @ 100 mls/hr IVPB Q12H [facility] Last Admin: 10/23/16 17:11 Dose: 100 mls/hr Dextrose/Sodium Chloride (Dextrose 5%/0.9% Ns 1000 Ml) 1,000 mls @ 60 mls/hr IV .[id number] [facility] Last Admin: 10/24/16 00:23 Dose: 60 mls/hr Lactulose (Enulose) 20 gm PO [facility] Last Admin: 10/23/16 21:46 Dose: Not Given Levothyroxine Sodium (Synthroid) 150 mcg PO DAILY@0630 [facility] Last Admin: 10/24/16 08:17 Dose: 150 mcg Mirtazapine (Remeron) 15 mg PO HS [facility] Last Admin: 10/23/16 21:43 Dose: 15 mg Ondansetron HCl (Zofran Inj) 4 mg IVP Q8 PRN PRN Reason: Nausea Last Admin: 10/24/16 09:54 Dose: 4 mg Raloxifene HCl (Evista) 60 mg PO DAILY [facility] Last Admin: 10/24/16 09:58 Dose: 60 mg Saccharomyces Boulardii (Florastor) 250 mg PO DAILY [facility] Last Admin: 10/24/16 09:57 Dose: 250 mg Sucralfate (Carafate Oral Susp) 1 gm PO AC [facility] Last Admin: 10/24/16 12:25 Dose: Not Given - Labs Labs: 10/23/16 07:21 10/23/16 07:21
[2016-10-24 15:51] VITALS: BP 145/67; PULSE 71; TEMP 97.5
--- NOTE | 2016-10-24 20:10 | PN ---
ENDOCRINOLOGY FOLLOWUP NOTE DATE: 10/24/2016 LOCATIONS: In [facility], room 557. SUBJECTIVE: This is an 81-year-old female with recent acute hypercalcemic crisis and has since then improved clinically and metabolically with normalization of her calcium levels to date as noted. Her latest chemistries showed the BUN of 82, sodium 145, potassium 5.3, chloride 108, CO2 25, glucose 139, creatinine is 1.3. Her calcium level is now 8.5 with an albumin level of 2.6 and the corrected calcium of 9.9 mg/dL. Her proBNP is still elevated at 6530 and is being managed for congestive heart failure, stable. We will obtain serum chemistries and supplement accordingly as treated. We will follow with you. Thais Wiggins MD
== END 2016-10-24 16:27 | disposition home health service (06) | DRG 193 ==
LOC: C.ER 12:44 → C.9E 15:23 → C.3T 18:23 → C.5T 10-11 10:13
PROVIDERS: ADMIT Family Medicine; ATTEND Family Medicine
PROC: 4A023N7 Measurement of Cardiac Sampling and Pressure, Left Heart, Percutaneous Approach (ICD-10-PCS; 2016-10-11)
PROC: B201YZZ Plain Radiography of Multiple Coronary Arteries using Other Contrast (ICD-10-PCS; 2016-10-11)
PROC: B205YZZ Plain Radiography of Left Heart using Other Contrast (ICD-10-PCS; 2016-10-11)
PROC: 02HV33Z Insertion of Infusion Device into Superior Vena Cava, Percutaneous Approach (ICD-10-PCS; principal; 2016-10-23)
DX: J18.9 Pneumonia, unspecified organism (principal); I21.4 Non-ST elevation (NSTEMI) myocardial infarction; E83.52 Hypercalcemia; I48.0 Paroxysmal atrial fibrillation; I11.0 Hypertensive heart disease with heart failure; J44.9 Chronic obstructive pulmonary disease, unspecified; R13.10 Dysphagia, unspecified; G30.9 Alzheimer's disease, unspecified; E86.0 Dehydration; I50.9 Heart failure, unspecified; F05 Delirium due to known physiological condition; R62.7 Adult failure to thrive; F02.80 Dementia in other diseases classified elsewhere, unspecified severity, without behavioral disturbance, psychotic disturbance, mood disturbance, and anxiety; D64.9 Anemia, unspecified; F41.9 Anxiety disorder, unspecified; M19.90 Unspecified osteoarthritis, unspecified site; J45.909 Unspecified asthma, uncomplicated; E78.00 Pure hypercholesterolemia, unspecified; E78.5 Hyperlipidemia, unspecified; E06.3 Autoimmune thyroiditis; F17.210 Nicotine dependence, cigarettes, uncomplicated; K59.00 Constipation, unspecified; Z91.81 History of falling; R63.4 Abnormal weight loss; Z95.5 Presence of coronary angioplasty implant and graft; T46.2X5A Adverse effect of other antidysrhythmic drugs, initial encounter; G47.10 Hypersomnia, unspecified; I25.10 Atherosclerotic heart disease of native coronary artery without angina pectoris; Z86.718 Personal history of other venous thrombosis and embolism; Z79.01 Long term (current) use of anticoagulants; R09.02 Hypoxemia; H54.0 Blindness, both eyes; I73.00 Raynaud's syndrome without gangrene; M62.50 Muscle wasting and atrophy, not elsewhere classified, unspecified site; Z74.01 Bed confinement status; E87.6 Hypokalemia